=== PATIENT | female | born 1990 | race Caucasian/White ===

== ENCOUNTER 2017-11-21 14:33 | Emergency (ER) | payer OTHER ==
[~2017-11-21] VITALS: Ht 170.2 cm; Wt 56.7 kg
[~2017-11-21 14:33] MED LIST: ACETAMINOPHEN-1 EAC1 PO; ADVIL LIQUI-GE200 MG; BUSPIRONE HCL7.5 MG PO; CEPHALEXIN500 MG PO; CLINDAMYCIN HC150 MG PO; IRON55 MG PO; PRENATAL-FOLIC1 EACH PO; ROBAXIN-750750 MG PO; TRAMADOL HCL50 MG PO; TUMS200 MG PO
== END 2017-11-21 14:46 | disposition home or self-care (01) ==
LOC: ED 14:33
DX: R22.9 Localized swelling, mass and lump, unspecified (principal); R50.9 Fever, unspecified; F17.200 Nicotine dependence, unspecified, uncomplicated

== ENCOUNTER 2017-11-27 15:44 | Emergency (ER) | payer OTHER ==
[~2017-11-27] VITALS: Ht 170.2 cm; Wt 56.7 kg
[2017-11-27] MEDS ORDERED: BACTRIM DS TAB1 EACH PO (16:16)
[2017-11-27] MEDS ORDERED: KETOROLAC TROME10 MG PO (16:17)
== END 2017-11-27 17:40 | disposition home or self-care (01) ==
LOC: ED 15:44
DX: L02.31 Cutaneous abscess of buttock (principal); F17.200 Nicotine dependence, unspecified, uncomplicated; Z88.4 Allergy status to anesthetic agent
CPT/HCPCS: 96372; 99283; J0692

== ENCOUNTER 2018-03-19 15:29 | Emergency (ER) | payer OTHER ==
[~2018-03-19] VITALS: Ht 170.2 cm; Wt 56.7 kg
[~2018-03-19 15:29] MED LIST changes: +BACTRIM DS TAB1 EACH PO; +KETOROLAC TROME10 MG PO
--- OUTSIDE RECORDS SUMMARY | 2018-03-19 15:34 | XMS ---
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 Lesly has no Care Guidelines for this patient. Jack VISIT COUNT (12 MO.) 1 Zachery Harper TOTAL 5 NOTE: Visits indicate total known visits. ED/C VISIT TRACKING (12 MO.) 03/19/2018 15:30 [facility] [place] TYPE: Emergency COMPLAINT: - MENSTRUAL PROBLEM 11/27/2017 15:44 [facility] [place] TYPE: Emergency COMPLAINT: - POSS ABSCESS DIAGNOSES: - Nicotine dependence, unspecified, uncomplicated - Lower abdominal pain, unspecified - Allergy status to anesthetic agent status - Cutaneous abscess of buttock 11/21/2017 14:34 [facility] [place] TYPE: Emergency COMPLAINT: - POSS ABSCESS DIAGNOSES: - Localized swelling, mass and lump, unspecified - Fever, unspecified - Nicotine dependence, unspecified, uncomplicated 09/28/2017 17:[address] [facility] [address] [facility] [place] TYPE: Emergency COMPLAINT: - ABDOMINAL PAIN/FEVER DIAGNOSES: - Nicotine dependence, unspecified, uncomplicated - Urinary tract infection, site not specified - Allergy status to other drugs, medicaments and biological substances status - Unspecified abdominal pain 07/25/2017 23:08 [facility] [place] TYPE: Emergency DIAGNOSES: - Cellulitis - Cellulitis of left lower limb - Lt Ankle infection INPATIENT VISIT TRACKING (12 MO.) No inpatient visits to display in this time frame [email or web address]
== END 2018-03-19 16:39 | disposition home or self-care (01) ==
LOC: ED 15:29
DX: N91.2 Amenorrhea, unspecified (principal); Z88.5 Allergy status to narcotic agent
CPT/HCPCS: 84703; 99283

== ENCOUNTER 2018-05-10 03:42 | Emergency (ER) | payer OTHER ==
[~2018-05-10] VITALS: Ht 170.2 cm; Wt 59.0 kg
--- OUTSIDE RECORDS SUMMARY | 2018-05-10 03:46 | XMS ---
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 CRITERIA MET - Group Notification - [facility] - 2 Visits in 30 Days CARE PROVIDERS Tim Bates Internal Medicine: Pulmonary Disease 03/22/2018-Current PHONE: Unknown Lesly has no Care Guidelines for this patient. Care History Medical/Surgical 03/23/2018 [facility] - PATIENT REQUESTED A PCP WHEN SEE IN THE WALK IN CLINIC IN NOVEMBER- PATIENT DID NOT RESPOND TO ANY OF THE VOICEMAILS LEFT- AP SEVILLA WAS WILLING TO SET UP AND ESTABLISH WITH PATIENT IN DECEMBER 2017. - CHW CALLED PATIENT AND LEFT A VOICEMAIL TO HELP PATIENT ESTABLISH CARE WITH A PCP. - PATIENT WAS CONTACTED BY [facility] ON 11/21/17 TO ESTABLISH CARE WITH AP SEVILLA. - PATIENT NEVER RESPONDED TO VOICEMAILS LEFT. - PLEASE REFER PATIENT TO [facility] WHEN SEEN IN THE ED FOR NON EMERGENT MEDICAL NEEDS. E.D. VISIT COUNT (12 MO.) 1 Zachery Harper TOTAL 7 NOTE: Visits indicate total known visits. ED/UCC VISIT TRACKING (12 MO.) 05/10/2018 03:42 [facility] [place] TYPE: Emergency COMPLAINT: - R WRIST LACERATION 04/10/2018 08:37 [facility] [place] TYPE: Emergency COMPLAINT: - DIFFICULTY BREATHING DIAGNOSES: - Allergy status to narcotic agent status - Allergy, unspecified, initial encounter - Nicotine dependence, unspecified, uncomplicated 03/19/2018 15:30 [facility] [place] TYPE: Emergency COMPLAINT: - MENSTRUAL PROBLEM DIAGNOSES: - Allergy status to narcotic agent status - Amenorrhea, unspecified 11/27/2017 15:44 [facility] [place] TYPE: Emergency COMPLAINT: - POSS ABSCESS DIAGNOSES: - Nicotine dependence, unspecified, uncomplicated - Lower abdominal pain, unspecified - Allergy status to anesthetic agent status - Cutaneous abscess of buttock 11/21/2017 14:[address] [facility] [place] TYPE: Emergency COMPLAINT: - POSS ABSCESS DIAGNOSES: - Localized swelling, mass and lump, unspecified - Fever, unspecified - Nicotine dependence, unspecified, uncomplicated 09/28/2017 17:54 [facility] [place] [place] TYPE: Emergency COMPLAINT: - ABDOMINAL PAIN/FEVER DIAGNOSES: - Nicotine dependence, unspecified, uncomplicated - Urinary tract infection, site not specified - Allergy status to other drugs, medicaments and biological substances status - Unspecified abdominal pain 07/25/2017 23:08 [facility] Perezalmas [facility]of[facility] [place] TYPE: Emergency DIAGNOSES: - Cellulitis - Cellulitis of left lower limb - Lt Ankle infection INPATIENT VISIT TRACKING (12 MO.) No inpatient visits to display in this time frame [email or web address]
== END 2018-05-10 05:32 | disposition home or self-care (01) ==
LOC: ED 03:42
DX: T18.2XXA Foreign body in stomach, initial encounter (principal); S61.511A Laceration without foreign body of right wrist, initial encounter; S60.221A Contusion of right hand, initial encounter; W22.8XXA Striking against or struck by other objects, initial encounter; F17.200 Nicotine dependence, unspecified, uncomplicated; Z88.5 Allergy status to narcotic agent
CPT/HCPCS: 71045; 73130; 74018; 84703; 99283-25

== ENCOUNTER 2018-11-02 20:53 | Emergency (ER) | payer OTHER ==
[~2018-11-02] VITALS: Ht 170.2 cm; Wt 59.0 kg
--- OUTSIDE RECORDS SUMMARY | 2018-11-02 20:56 | XMS ---
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 CRITERIA MET - Group Notification - [facility] - Has Care Guidelines - PDMP CARE PROVIDERS Tim Bates Internal Medicine: Pulmonary Disease 03/22/2018-Current PHONE: Unknown Lesly has no Care Guidelines for this patient. Care History Medical/Surgical 03/23/2018 [facility] - PATIENT REQUESTED A PCP WHEN SEE IN THE WALK IN CLINIC IN NOVEMBER- PATIENT DID NOT RESPOND TO ANY OF THE VOICEMAILS LEFT- AP SEVILLA WAS WILLING TO SET UP AND ESTABLISH WITH PATIENT IN DECEMBER 2017. - CHW CALLED PATIENT AND LEFT A VOICEMAIL TO HELP PATIENT ESTABLISH CARE WITH A PCP. - PATIENT WAS CONTACTED BY [facility] ON 11/21/17 TO ESTABLISH CARE WITH AP SEVILLA. - PATIENT NEVER RESPONDED TO VOICEMAILS LEFT. - PLEASE REFER PATIENT TO [facility] WHEN SEEN IN THE ED FOR NON EMERGENT MEDICAL NEEDS. E.D. VISIT COUNT (12 MO.) [facility] [address] [facility] [address] [facility] Dom[facility] TOTAL 8 NOTE: Visits indicate total known visits. ED/UCC VISIT TRACKING (12 MO.) 11/02/2018 20:[address] [facility] [address] [facility] [place] TYPE: Emergency COMPLAINT: - NAUSEA,BLOOD PRESSURE ISSUE,WEAKNESS 07/25/2018 11:08 [facility] [place] [facility] TYPE: Emergency DIAGNOSES: 0. LABS 07/25/2018 09:13 [facility] [place] [facility] TYPE: Emergency DIAGNOSES: 0. RIGHT HAND SWELLING 05/10/2018 03:42 [facility] [place] [place] TYPE: Emergency COMPLAINT: - R WRIST LACERATION DIAGNOSES: - Allergy status to narcotic agent status - Contusion of right hand, initial encounter - Striking against or struck by other objects, initial encounter - Foreign body in stomach, initial encounter - Laceration without foreign body of right wrist, initial encounter - Nicotine dependence, unspecified, uncomplicated 04/10/2018 08:37 [facility] [place] [place] TYPE: Emergency COMPLAINT: - DIFFICULTY BREATHING DIAGNOSES: - Allergy status to narcotic agent status - Allergy, unspecified, initial encounter - Nicotine dependence, unspecified, uncomplicated 03/19/2018 15:30 [facility] [place] [place] TYPE: Emergency COMPLAINT: - MENSTRUAL PROBLEM DIAGNOSES: - Allergy status to narcotic agent status - Amenorrhea, unspecified 11/27/2017 15:[address] [facility] [address] [facility] [place] [place] TYPE: Emergency COMPLAINT: - POSS ABSCESS DIAGNOSES: - Nicotine dependence, unspecified, uncomplicated - Lower abdominal pain, unspecified - Allergy status to anesthetic agent status - Cutaneous abscess of buttock 11/21/2017 14:34 [facility] [place] [place] TYPE: Emergency COMPLAINT: - POSS ABSCESS DIAGNOSES: - Localized swelling, mass and lump, unspecified - Fever, unspecified - Nicotine dependence, unspecified, uncomplicated INPATIENT VISIT TRACKING (12 MO.) No inpatient visits to display in this time frame [email or web address]
== END 2018-11-02 22:37 | disposition home or self-care (01) ==
LOC: ED 20:53
DX: R03.1 Nonspecific low blood-pressure reading (principal); F17.200 Nicotine dependence, unspecified, uncomplicated; Z88.8 Allergy status to other drugs, medicaments and biological substances
CPT/HCPCS: 99283

== ENCOUNTER 2019-01-18 19:13 | Emergency (ER) | payer OTHER ==
[~2019-01-18] VITALS: Ht 170.2 cm; Wt 56.7 kg
[~2019-01-18 19:13] MED LIST changes: +BUPRENORPHINE HC8 MG SL
--- OUTSIDE RECORDS SUMMARY | 2019-01-18 19:16 | XMS ---
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 04/10/2018 08:37 - Other Details: PATIENT LEFT W/OUT DISCHARGE INSTRUCTIONS. CRITERIA MET - Group Notification - [facility] - Has Care Guidelines - PDMP CARE PROVIDERS Tim Bates Internal Medicine: Pulmonary Disease 03/22/2018-Current PHONE: Unknown Lesly has no Care Guidelines for this patient. Care History Medical/Surgical 11/03/2018 [facility] - PATIENT DECLINED [facility] CASE MANAGEMENT ASSISTANCE. - PLEASE CONTACT [facility] IF PATIENT IS WILLING TO ACCEPT HELP [phone]. 11/03/2018 [facility] - [facility] CASE MANAGEMENT REFERRAL MADE- [facility] NOT [facility] A [facility]. - PATIENT HAS HX OF DRUG USAGE, - PATIENT CURRENTLY WORKING WITH DR YOLANDA RODRIGUES. Care Recommendation: - USE EXTREME CAUTION IN GIVING NARCOTICS TO THIS PATIENT. - Avoid Discharge Narcotic prescriptions if at all possible. Physician discretion. 03/23/2018 [facility] - PATIENT REQUESTED A PCP WHEN SEE IN THE WALK IN CLINIC IN NOVEMBER- PATIENT DID NOT RESPOND TO ANY OF THE VOICEMAILS LEFT- AP SEVILLA WAS WILLING TO SET UP AND ESTABLISH WITH PATIENT IN DECEMBER 2017. - CHW CALLED PATIENT AND LEFT A VOICEMAIL TO HELP PATIENT ESTABLISH CARE WITH A PCP. - PATIENT WAS CONTACTED BY [facility] ON 11/21/17 TO ESTABLISH CARE WITH AP SEVILLA. - PATIENT NEVER RESPONDED TO VOICEMAILS LEFT. - PLEASE REFER PATIENT TO [facility] WHEN SEEN IN THE ED FOR NON EMERGENT MEDICAL NEEDS. Jack VISIT COUNT (12 MO.) [address] [place] [address] B[facility] [place] TOTAL 8 NOTE: Visits indicate total known visits. 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 [place] [facility] TYPE: Emergency DIAGNOSES: 0. LABS 07/25/2018 09:13 [facility] TYPE: Emergency DIAGNOSES: 0. RIGHT HAND SWELLING [...] to narcotic agent status - Amenorrhea, unspecified INPATIENT VISIT TRACKING (12 MO.) 11/08/2018 20:10 [facility] [place] [place] TYPE: Pulmonology DIAGNOSES: - Encephalopathy - Other psychoactive substance abuse, uncomplicated - Headache - Other stimulant abuse, uncomplicated - Encephalopathy, unspecified [email or web address]
--- NOTE | 2019-01-18 23:58 | EKG ---
[facility] [address] [place], [place] [address] Signed Sinus tachycardia Cannot rule out Anterior infarct , age undetermined Non-specific change in ST segment in V4-V5 Abnormal ECG No previous ECGs available Confirmed by SANA GIBBONS MD ([id number]) on 01/18/2019 11:58:28 PM Electronically Signed By: SANA GIBBONS MD 01/18/19 2358 PATIENT NAME: LUBA SEBASTIAN ROOSEVELT Electrocardiogram DATE OF : 89 PHYSICIAN: SANA GIBBONS MD REPORT #: [id number] REPORT IS CONFIDENTIAL AND NOT TO BE RELEASED WITHOUT AUTHORIZATION
== END 2019-01-19 04:35 | disposition home or self-care (01) ==
LOC: ED 19:13
DX: R51 Headache (principal); G89.29 Other chronic pain; F15.10 Other stimulant abuse, uncomplicated; F11.129 Opioid abuse with intoxication, unspecified; F17.200 Nicotine dependence, unspecified, uncomplicated; Z88.6 Allergy status to analgesic agent; Z79.899 Other long term (current) drug therapy
CPT/HCPCS: 36415; 36556; 62270; 70450; 71045; 80053; 81001; 82945; 83605; 84157; 84484; 84703; 85025; 85032; 85379; 89051; 93005; 93010; 93970; 99291; 99292; G0480; J1200; J2765; J7030

== ENCOUNTER 2019-01-31 02:21 | Emergency (ER) | payer OTHER ==
[~2019-01-31] VITALS: Ht 170.2 cm; Wt 56.7 kg
--- OUTSIDE RECORDS SUMMARY | 2019-01-31 02:24 | XMS ---
PreManage Notification: LUBA SEBASTIAN Security [place] Events 1 event(s) in the past 18 months Most recent security events: Elopement at [facility] 04/10/2018 08:37 - Other Details: PATIENT LEFT W/OUT DISCHARGE INSTRUCTIONS. CRITERIA MET - Group Notification - 6 ED Visits in 6 Months - [facility] - Has Care Guidelines - PDMP - [facility] - 2 Visits in 30 Days CARE PROVIDERS Tim Bates Internal Medicine: Pulmonary Disease 03/22/2018-Current PHONE: Unknown Lesly has no Care Guidelines for this patient. Care History Medical/Surgical 01/20/2019 [facility] - [facility] REFERRAL MADE- DUE TO PATIENT DECLINING SERVICES/HELP FROM [facility]. 11/03/2018 [facility] - PATIENT DECLINED [facility] CASE MANAGEMENT ASSISTANCE. - PLEASE CONTACT [facility] IF PATIENT IS WILLING TO ACCEPT HELP [phone]. 11/03/2018 [facility] - [facility] CASE MANAGEMENT REFERRAL MADE- [facility] AND NOT HAVING A PCP. - PATIENT HAS HX OF DRUG USAGE, - PATIENT CURRENTLY WORKING WITH DR YOLANDA RODRIGUES. Care Recommendation: - USE EXTREME CAUTION IN GIVING NARCOTICS TO THIS PATIENT. - Avoid Discharge Narcotic prescriptions if at all possible. Physician discretion. E.D. VISIT COUNT (12 MO.) 2 [address] [facility] [facility] 7 BRIAN Harper TOTAL 11 NOTE: Visits indicate total known visits. ED/UCC VISIT TRACKING (12 MO.) 01/31/2019 02:21 [facility] [place] TYPE: Emergency COMPLAINT: - MULTIPLE COMPLAINTS 01/21/2019 23:43 [facility] [place] TYPE: Emergency DIAGNOSES: - Acute and subacute infective endocarditis - Other specified abnormal findings of blood chemistry - Elevated C-reactive protein (CRP) - Other psychoactive substance use, unspecified, uncomplicated - Post Diagnosis Test Re-evaluation - Systemic inflammatory response syndrome (SIRS) of non-infectious origin without acute organ dysfunction - Fever, unspecified 01/21/2019 04:48 [facility] [place] TYPE: Emergency DIAGNOSES: - Headache; Fever - Headache 01/18/2019 19:14 [facility] TYPE: Emergency COMPLAINT: - CHILLS DIAGNOSES: - Allergy status to analgesic agent status - Headache - Other chronic pain - Nicotine dependence, unspecified, uncomplicated - Opioid abuse with intoxication, unspecified - 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 [place] [facility] TYPE: Emergency DIAGNOSES: 0. LABS 07/25/2018 09:13 [facility] [place] [facility] TYPE: Emergency DIAGNOSES: 0. RIGHT [...] Amenorrhea, unspecified INPATIENT VISIT TRACKING (12 MO.) 01/21/2019 23:43 [facility] María [place]ER[place] TYPE: Medical Surgical DIAGNOSES: - Acute and subacute infective endocarditis - Elevated C-reactive protein (CRP) - Opioid dependence, uncomplicated - Systemic inflammatory response syndrome (SIRS) of non-infectious origin without acute organ dysfunction - Fever, unspecified - Other psychoactive substance use, unspecified, uncomplicated - Other specified abnormal findings of blood chemistry - Other stimulant dependence, uncomplicated - Other visual disturbances [facility]08[facility]2018 [facility] TYPE: Pulmonology DIAGNOSES: - Encephalopathy - Other psychoactive substance abuse, uncomplicated - Headache - Other stimulant abuse, uncomplicated - Encephalopathy, unspecified [email or web address]
[2019-02-01] MEDS ORDERED: METHADONE HCL5 MG PO (10:09)
[2019-02-01] MEDS ORDERED: CUBICIN RF500 MG IV (10:10)
[2019-02-01] MEDS ORDERED: TRAZODONE HCL50 MG PO (10:15)
[2019-02-01] MEDS ORDERED: ATIVAN1 MG PO (10:16)
== END 2019-01-31 04:55 | disposition home or self-care (01) ==
LOC: ED 02:21
DX: F15.129 Other stimulant abuse with intoxication, unspecified (principal); I07.9 Rheumatic tricuspid valve disease, unspecified; F15.10 Other stimulant abuse, uncomplicated; F11.10 Opioid abuse, uncomplicated; F17.200 Nicotine dependence, unspecified, uncomplicated; Z88.6 Allergy status to analgesic agent; Z79.899 Other long term (current) drug therapy
CPT/HCPCS: 80053; 81001; 85025; 99284; J0878

== ENCOUNTER 2019-01-31 14:07 | Inpatient (IN) | payer OTHER ==
[~2019-01-31] VITALS: Ht 170.2 cm; Wt 56.7 kg
--- OUTSIDE RECORDS SUMMARY | ~2019-01-31 | XMS | Encounter Summary ---
Demographics + + + | Address | [address] | | | [place] [address] | + + + | Home Phone | | + + + | Preferred Language | Unknown | + + + | Marital Status | Single | + + + | Hoahaoism Affiliation | Unknown | + + + | Race | Unknown | + + + | Ethnic Group | Unknown | + + + Author + + + | Author | [facility] | | | and [place] | + + + | Organization | [facility] | | | and [place] | + + + | Address | Unknown | + + + | Phone | Unavailable | + + + Support + + + + + | Name | Relationship | Address | Phone | + + + + + | Rhonda Islas | ECON | [address] | | | | | [place] | | | | | [address] | | + + + + + Care Team Providers + +------+ + | Care Refrigeration Specialist Name | Role | Phone | + +------+ + | No, Physician | PCP | Unavailable | + +------+ + Encounter Details +--------+ + + + + | Date | Type | Department | Care Team | Description | +--------+ + + + + | 11/08/ | Imaging | [facility] | Provider, | | | 2019 | Exam | [facility] | MD Danielle [address] | | | | | IMAGING | Jose COOK | | | | | [phone] | [place] [address] | | +--------+ + + + + Social History + +-------+ +--------+------+ | Tobacco Use | Types | Packs/Day | Years | Date | | | | | Used | | + +-------+ +--------+------+ | Never Assessed | | | | | + +-------+ +--------+------+ + + + | Sex Assigned at | Date Recorded | | | | + + + | Not on file | | + + + + + + + | Job Start Date | Occupation | Industry | + + + + | Not on file | Not on file | Not on file | + + + + + + + + | Travel History | Travel Start | Travel End | + + + + + + | No recent travel history available. | + + documented as of this encounter Plan of Treatment +--------+---------+ + + + | Date | Type | Specialty | Care Team | Description | +--------+---------+ + + + | 03/30/ | Office | Neurology | Jd Henderson MD | | | 2019 | Visit | | [address] | | | | | | [place] | | | | | | [address] | | | | | | | | +--------+---------+ + + + documented as of this encounter Procedures + +--------+ + + + | Procedure Name | Priori | Date/Time | Associated Diagnosis | Comments | | | ty | | | | + +--------+ + + + | MRI VENOGRAM HEAD WO | Routin | 11/08/2018 | | Results for this | | CONTRAST | e | 22:00 PDT | | procedure are in the | | | | | | results section. | + +--------+ + + + documented in this encounter Visit Diagnoses Not on filedocumented in this encounter"
--- OUTSIDE RECORDS SUMMARY | ~2019-01-31 | XMS | Encounter Summary ---
Demographics + + + | Address | [address] | | | [place] [address] | + + + | Home Phone | | + + + | Preferred Language | Unknown | + + + | Marital Status | Single | + + + | Gnosticism Affiliation | Unknown | + + + | Race | Unknown | + + + | Ethnic Group | Unknown | + + + Author + + + | Author | [facility] | | | and [place] | + + + | Organization | [facility] | | | and [place] | + + + | Address | Unknown | + + + | Phone | Unavailable | + + + Support + + + + + | Name | Relationship | Address | Phone | + + + + + | Rhonda Islas | ECON | [address] | | | | | [place] | | | | | [address] | | + + + + + Care Team Providers + +------+ + | Care Production Team Member Name | Role | Phone | + +------+ + | No, Physician | PCP | Unavailable | + +------+ + Reason for Visit + + + | Reason | Comments | + + + | Medication Refill | | + + + Encounter Details +--------+ + + + + | Date | Type | Department | Care Team | Description | +--------+ + + + + | 01/25/ | Telephone | [facility] | Jd Henderson MD | Medication Refill | | 2019 | | HOSPITAL NEUROLOGY | [address] | | | | | CLINIC [address] | [place] | | | | | DR [place], | [address] | | | | | [place] [address] | | | | | | [phone] | | | +--------+ + + + + Social History + +-------+ +--------+------+ | Tobacco Use | Types | Packs/Day | Years | Date | | | | | Used | | + +-------+ +--------+------+ | Former Smoker | | 0.5 | | | + +-------+ +--------+------+ + +---+---+---+ | Smokeless Tobacco: | | | | | Never Used | | | | + +---+---+---+ + + +---------+ + | Alcohol Use | Drinks/We | oz/Week | Comments | | | ek | | | + + +---------+ + | Yes | | | | + + +---------+ + + + + | Sex Assigned at [...] | | | | | | [place] | | | | | | [phone] | | | | | | | | +--------+---------+ + + + documented as of this encounter Visit Diagnoses Not on filedocumented in this encounter"
--- OUTSIDE RECORDS SUMMARY | ~2019-01-31 | XMS | Encounter Summary ---
Demographics + + + | Address | [address] | | | [employer] [place] [address] | + + + | Home Phone | | + + + | Preferred Language | Unknown | + + + | Marital Status | Single | + + + | Pentecostal Affiliation | NON | + + + | Race | White | + + + | Ethnic Group | Not or | + + + Author + + + | Author | [facility] | + + + | Organization | [facility] | + + + | Address | Unknown | + + + | Phone | Unavailable | + + + Care Team Providers + +------+ + | Care Clinical Laboratory Aide Name | Role | Phone | + +------+ + PCP | Unavailable | + +------+ + Encounter Details +--------+--------+ + + + | Date | Type | Department | Care Team | Description | +--------+--------+ + + + | 11/08/ | Intake | Transfer Center | | N/A | | 2019 | | [address] | | | | | | [place], | | | | | | [place] [address] | | | +--------+--------+ + + + Social History + +-------+ [...] as of this encounter Plan of Treatment Not on filedocumented as of this encounter Visit Diagnoses Not on filedocumented in this encounter"
--- OUTSIDE RECORDS SUMMARY | ~2019-01-31 | XMS | Encounter Summary ---
Demographics + + + | Address | [address] | | | [place] [address] | + + + | Home Phone | | + + + | Preferred Language | Unknown | + + + | Marital Status | Single | + + + | Rastafarian Affiliation | Unknown | + + + | Race | Unknown | + + + | Ethnic Group | Unknown | + + + Author + + + | Author | [facility] | | | and [place] | + + + | Organization | [facility] | | | and [place] | + + + | Address | Unknown | + + + | Phone | Unavailable | + + + Support + + + + + | Name | Relationship | Address | Phone | + + + + + | Rhonda Islas | ECON | [address] | | | | | [place] | | | | | [address] | | + + + + + Care Team Providers + +------+ + | Care Regional Construction Manager Name | Role | Phone | + [...] | [facility] | MD Danielle [address] | | | | | IMAGING | [address] | | | | | [phone] | [place] [address] | | +--------+ + + + + [...] [place] | | | | | | [phone] | | | | | | | | +--------+---------+ + + + documented as of this encounter Procedures + +--------+ + + + | Procedure Name | Priori | Date/Time | Associated Diagnosis | Comments | | | ty | | | | + +--------+ + + + | MRI BRAIN W WO | Routin | 11/08/2018 | | Results for this | | CONTRAST | e | 22:15 PDT | | procedure are in the | | | | | | results section. | + +--------+ + + + documented in this encounter Visit Diagnoses Not on filedocumented in this encounter"
--- OUTSIDE RECORDS SUMMARY | ~2019-01-31 | XMS | Encounter Summary ---
Demographics + + + | Address | [address] | | | [place] [address] | + + + | Home Phone | | + + + | Preferred Language | Unknown | + + + | Marital Status | Single | + + + | Yarsani Affiliation | Unknown | + + + | Race | Unknown | + + + | Ethnic Group | Unknown | + + + Author + + + | Author | [facility] | | | and Romarioana | + + + | Organization | [facility] | | | [...] [address] | | | | | [place] | | | | | [address] | | + + + + + Care Team Providers + +------+ + | Care Cyber Workforce Developer And Manager Name | Role | Phone | + +------+ + | Dada Silver PCP | | + +------+ + Reason for Visit + + + | Reason | Comments | + + + | Post Diagnosis Test | | | Re-evaluation | | + + + Auth/Cert +--------+--------+ + + + + | Status | Reason | Specialty | Diagnoses / | Referred By | Referred To | | | | | Procedures | Contact | Contact | +--------+--------+ + + + + | | | | Diagnoses | | | | | | | Acute | | | | | | | bacterial | | | | | | | endocarditis | | | | | | | Elevated | | | | | | | C-reactive | | | | | | | protein | | | | | | | Active | | | | | | | intravenous | | | | | | | drug use | | | | | | | SIRS | | | | | | | (systemic | | | | | | | inflammatory | | | | | | | response | | | | | | | syndrome) | | | | | | | (HCC) Fever | | | | | | | in adult | | | | | | | Elevated | | | | | | | procalcitoni | | | | | | | n | | | | | | | | | | +--------+--------+ + + + + Encounter Details +--------+ + + + + | Date | Type | Department | Care Team | Description | +--------+ + + + + | 01/21/ | Hospital | [facility] | SimonVladislav mancuso, | Active intravenous | | 2019 - | Encounter | [facility] | [address] | drug use (Primary | | | | [address] [place] | [place] | Dx); Fever in adult; | | 01/29/ | | [place] [address] | [id number] | Acute bacterial | | 2018 | | [phone] | | endocarditis; | | | | | Adam White MD | Elevated | | | | | [address] | procalcitonin; | | | | | [place] | Elevated C-reactive | | | | | [address] | protein; SIRS | | | | | | (systemic | | | | | Yoana Rojo MD | inflammatory | | | | | [address] | response syndrome) | | | | | [place] | (HCC); Heroin | | | | | [address] | dependence (HCC); | | | | | | Blurred vision; | | | | | | Methamphetamine | | | | | | dependence (HCC) | +--------+ + + + + Social [...] + + documented as of this encounter Last Filed Vital Signs + + + + | Vital Sign | Reading | Time Taken | + + + + | Blood Pressure | 95/55 | 01/29/2019749 PDT | + + + + | Pulse | 85 | 01/29/2019749 PDT | + + + + | Temperature | 36.4 C (97.6 F) | 01/29/2019749 PDT | + + + + | Respiratory Rate | 20 | 01/29/2019749 PDT | + + + + | Oxygen Saturation | 97% | 01/29/2019749 PDT | + + + + | Inhaled Oxygen | - | - | | Concentration | | | + + + + | Weight | 56.7 kg (125 lb) | 01/22/2019 0546 PDT | + + + + | Height | 170.2 cm (5' 7") | 01/22/2019 0546 PDT | + + + + | Body Mass Index | 19.58 | 01/22/2019 0546 PDT | + + + + documented in this encounter Discharge Summaries Maurizio Drummond MD - 01/29/2019 1430 PDT DISCHARGE SUMMARY Patient Name: Sandhya Gil : 1990 Date of Admission: 01/21/2019 Date of Discharge: 01/29/19 Admitting Physician: Adam White MD Discharging Physician: Maurizio Drummond MD Primary Care Provider: Dada Silver Discharge Diagnoses: Active Problems: Acute bacterial endocarditis SIRS (systemic inflammatory response syndrome) Heroin dependence Methamphetamine dependence Blurred vision Resolved Problems: * No resolved hospital problems. * Patient Active Problem List Diagnosis SIRS (systemic inflammatory response syndrome) Heroin dependence Methamphetamine dependence Acute bacterial endocarditis Blurred vision Consultants: Discussed with antimicrobial stewardship team Procedures: 01/21 EKG: Normal sinus rhythm Normal ECG 01/22 Echo: 1. Normal left ventricular size, wall thickness and motion. Preserved left ventricular sy stolic function. LVEF is 70%. 2. Grade 1 left ventricular diastolic dysfunction. 3. Mildly thickened mitral valve with a trace mitral valve regurgitation. 4. A 0.7 x 0.7 x 1.0 cm oscillating, mobile mass attached to the anterior tricuspid valve leaflet. Findings suggests vegetation. No significant tricuspid regurgitation noted. 5. Normal right-sided pressure. 6. Normal IVC with normal respiratory collapse. 01/22 CXR: FINDINGS: Portable frontal chest radiograph Lungs: No focal airspace disease, pleural effusion, or pneumothorax. Heart/mediastinum: Cardiac silhouette is of normal size. Central pulmonary vasculature has a normal appearance. Bones: No acute osseous abnormality appreciated. IMPRESSION - No acute disease. 01/22 CXR: FINDINGS: Portable frontal chest radiograph. Right internal jugular central venous catheter with the tip at the mid superior vena cava. Lungs: No focal airspace disease, pleural effusion, or pneumothorax. Heart/mediastinum: Cardiac silhouette is of normal size. Central pulmonary vasculature has a normal appearance. IMPRESSION - Right central venous catheter tip at the mid superior vena cava. No pneumothorax. 01/[address]: FINDINGS: The cerebral parenchyma, ventricles, brainstem and cerebellum appear normal. There is no mass effect, abnormal parenchymal enhancement, conclusive evidence of intracranial hemorrhage or suspicious extra-axial abnormality. 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 Major intracranial vessels and dural sinuses appear patent and unremarkable, allowing for small rounded radiolucent filling defects in the transverse dural venous sinuses, which are consistent with arachnoid granulations. The orbital contents are symmetric and unremarkable. The bones and soft tissues, including the imaged paranasal sinuses, middle ear cavities and mastoid air cells, are unremarkable. IMPRESSION - 1. 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 2. NO OTHER VISIBLE INTRACRANIAL OR EXTRACRANIAL ABNORMALITY. Brain MRI performed November 08, 2018 at [facility] is now available for comparison. The pineal cyst is stable in size. No new abnormality is evident. No results found. Recent Results (from the past 48 hour(s)) Basic Metabolic Panel Result Value Ref Range Na 140 136 - 145 mmol/L K 3.7 3.4 - 5.1 mmol/L Cl 104 98 - 107 mmol/L CO2 31 20 - 31 mmol/L Anion Gap 5 3 - 16 mmol/L Glucose 120 (H) 60 - 106 mg/dL BUN 9 9 - 23 mg/dL Creatinine 0.50 (L) 0.55 - 1.02 mg/dL eGFR if not >60 >=60 mL/min/1.73m2 Calcium 9.4 8.7 - 10.4 mg/dL BUN/Creatinine Ratio 18.0 Vancomycin, Trough Result Value Ref Range Date of Last Dose Time of Last Dose Vancomycin Trough 13.8 (H) 5.0 - 10.0 ug/mL CK Total Result Value Ref Range CK TOTAL 47 34 - 145 U/L Reason for Admission: Please refer to the H&P for full details. In short, this is a 28 y.o. female with a histor y of IV heroin use who presented with fevers, chills, headache. Problem-Oriented Hospital Course: Culture negativetricuspid valveendocarditis -History of recent IV heroin use - Echo showedtricuspid vegetation - Arrived withprocalcitoninof 8.68and CRPof 36, elevated inflammatory/infectious ma rkers,fevers at home,although blood cultures neg, right IJ central line placed - 1 major and 2 minor criteria per modified [place] - Started on vancomycin on admission, with improvement in symptoms and inflammatory markers , procalcitonin fell to 0.82 by 01/24 - Discussed with AMS, plan for 4 weeks of IV vancomycin or daptomycin (01/22-02/19), initial ly planned on discharging to SNF, but she decided to go home instead - Peripheral IV placed, central line removed, switched to IV daptomycin, which she tolerate d - She refused SNF - We will plan to have her follow up with [facility] for daptomycin ever y afternoon, with daily placement then removal of peripheral IV, did not feel PICC was appro priate given her history - To follow up with her primary care Dr. Silver in [place] IV heroin use/methamphetamine use -Initially on high-dose methadonebut was very drowsy, switched to lower dose 5 mg metha done bid and she states symptoms controlled, denies withdrawal at discharge - She would like to establish with methadone or Suboxone clinic, advised her that will need to be managed by outpatient provider - Lorazepam PRN agitation/withdrawal, prescribed short course of 6 1-mg tabs of lorazepam q 8h PRN - Strongly advised heroin cessation, advised her that she could lose tolerance after a week in the hospital, and that there is a very high risk of overdose if she uses heroin again, a nd she stated she understood Tobacco use d/o Nicotine patch/lozenges ordered in the hospital. - She is precontemplative about quitting smoking currently, but encouraged cessation Blurred vision: - C/o blurred vision01/25, but unable to get MRI because of anxiety despite lorazepam - Much improved symptoms 01/26, checked head CT which showed (known)pineal cyst, noacute intracranial process, felt to be stable on imaging - No complaints at discharge Code Status: Full Code Disposition: Home Discharge Condition: Fair, alert, appropriate, thin Lungs clear Heart RRR, no m/r/g Abd soft, NT Ext WWP Follow-up Information Schedule an appointment as soon as possible for a visit with Dada Silver. Specialty: Family Medicine Why: Make a follow up appointment RIKY on Wednesday 01/31. Contact information: [address] [place] [address] [facility]. Go on 01/30/2019. Specialty: Acute Care Hospital Why: Your appointment is at 2:00PM. Please speak with the RN about making future infusion appointments. Contact information: [address] [facility] [id number] Discharge Medications New Medications Details DAPTOmycin (CUBICIN) IVPB 6 mg/kg = 400 mg Inject 400 mg into the vein every 24 hours. Indications: Bacterial Endocarditis Start: 01/30/2019 LORazepam 1 mg tablet Take 1 tablet by mouth every 8 hours as needed for Anxiety or Withdrawal Symptoms. aka: ATIVAN Unchanged Medications Details buprenorphine [address] 4 mg under the tongue Daily. aka: SUBUTEX Studies With Pending Results: None Greater than 30 minutes were spent on discharge and coordination of post-hospital care. Electronically signed by: Maurizio Drummond MD, 01/29/2019 14:35 [facility] documented in this enc ounter Discharge Instructions Instructions Maurizio Drummond MD - 01/29/2019Please follow up with your primary care in t he next few days to address your chronic health issues. Follow up daily with infusion clini c in [place] in order to get the daily daptomycin you need to treat the heart infection. A short course of lorazepam for withdrawal symptoms has been prescribed. documented in this encounter Medications at Time of Discharge + + + +---------+ + + | Medication | Sig | Dispensed | Refills | Start | End Date | | | | | | Date | | + + + +---------+ + + | buprenorphine | Place 4 mg under the | | 0 | | | | (SUBUTEX) 8 mg SUBL | tongue Daily. | | | | | + + + +---------+ + + | DAPTOmycin | Inject 400 mg into | 20 each | 0 | // | | | (CUBICIN) IVPB 6 | the vein every 24 | | | 19 | | | mg/kg = 400 | hours. Indications: | | | | | | mgIndications: | Bacterial | | | | | | Bacterial | Endocarditis | | | | | | Endocarditis | | | | | | + + + +---------+ + + | LORazepam (ATIVAN) | Take 1 tablet by | 6 | 0 | 01/30/20 | | | 1 mg tablet | mouth every 8 hours | tablet | | 19 | | | | as needed for | | | | | | | Anxiety or | | | | | | | Withdrawal Symptoms. | | | | | + + + +---------+ + + documented as of this encounter Progress Notes Maurizio Drummond MD - 01/28/2019 1534 PDT [facility] Sandhya Gil is a 28 y.o. female ASSESSMENT and PLAN: Active Hospital Problems Diagnosis Acute bacterial endocarditis Blurred vision SIRS (systemic inflammatory response syndrome) Heroin dependence Methamphetamine dependence Resolved Hospital Problems No resolved problems to display. Culture negativetricuspid valveendocarditis - History of IV heroin use - Echo showedtricuspid vegetation - Arrived withprocalcitoninof 8.68and CRPof 36, elevated inflammatory/infectious ma rkers, fevers at home, although blood cultures neg - 1 major and 2 minor criteria per modified [place] - Started on vancomycin on admission, with improvement in symptoms and inflammatory markers - Discussed with AMS, plan for 4 weeks of IV vancomycin or daptomycin (01/22-02/19), if able to go to SNF, will order PICC line - Peripheral IV placed today, central line removed, switched to IV daptomycin, but can use either vanc or daptomycin to finish course IV heroin use/methamphetamine use -She declined methadone01/26, but was feeling some withdrawal 01/27, switched to lower do se 5 mg methadone bid and she states symptoms controlled - Lorazepam PRN agitation/withdrawal Tobacco use d/o Nicotine patch/lozenges ordered. Blurred vision: - C/o blurred vision01/25, but unable to get MRI because of anxiety despite lorazepam - Much improved symptoms 01/26, checked head CT which showed (known)pineal cyst, noacute intracranial process Disposition : Working with CM Prophylaxis : heparin SUBJECTIVE: Feels anxious at times. No acute pain. No chest pain or shortness of breath. No nausea /vomiting. VITALS: Temp: 36.3 C (97.3 F), Pulse: 69, Resp: 20, BP: 104/69, SpO2 97 % on room air Temp Min : 36.2 C (97.2 F) Max: 36.7 C (98.1 F) Weight: 56.7 kg (125 lb) Intake/Output Summary (Last 24 hours) at 01/28/2019 1534 Last data filed at 01/28/2019 0726 Gross per 24 hour Intake 300 ml Output 900 ml Net -600 ml PHYSICAL EXAM: General: Alert, anxious at times, no acute distress Cardiovascular: RRR Respiratory: CTA bilaterally Abdomen: Soft, NT Extremities: WWP, no stigmata of endocarditis Reeves catheter present: No DIAGNOSTIC STUDIES: Available data and images were reviewed personally. Significant results and findings are a ddressed here or in the Assessment and Plan. Recent Results (from the past 24 hour(s)) Basic Metabolic Panel Result Value Ref Range Na 140 136 - 145 mmol/L K 3.7 3.4 - 5.1 mmol/L Cl 104 98 - 107 mmol/L CO2 31 20 - 31 mmol/L Anion Gap 5 3 - 16 mmol/L Glucose 120 (H) 60 - 106 mg/dL BUN 9 9 - 23 mg/dL Creatinine 0.50 (L) 0.55 - 1.02 mg/dL eGFR if not >60 >=60 mL/min/1.73m2 Calcium 9.4 8.7 - 10.4 mg/dL BUN/Creatinine Ratio 18.0 Vancomycin, Trough Result Value Ref Range Date of Last Dose Time of Last Dose Vancomycin Trough 13.8 (H) 5.0 - 10.0 ug/mL CK Total Result Value Ref Range CK TOTAL 47 34 - 145 U/L No results found. Current Facility-Administered Medications: acetaminophen 650 mg Oral Q4H PRN DAPTOmycin 6 mg/kg Intravenous Q24H heparin 5,000 Units Subcutaneous 2 times per day LORazepam 1 mg Oral Q4H PRN methadone 5 mg Oral 2 times per day nicotine 1 patch Transdermal Daily PRN nicotine polacrilex 2 mg Oral PRN Total time of approximately 25 minutes was spent with the patient and/or patient's family, and/or on the patient's floor/unit, of which more than 50% was spent counseling and/or coord ination the patient's care as outlined above. Maurizio Drummond MD 01/28/2019 15:34 [facility] hemo Mcintosh , Powerhouse Mechanic Supervisor - 01/28/2019 0823 PDT VANCOMYCIN PER PHARMACY PROTOCOL: AMS/Drug Name - Vanco Patient: Sandhya Gil [id number] Admit: 01/21/2019 23:45 RELEVANT ALLERGIES: NKA 28 yrs old female patient admitted on 01/21/2019 for bactermia Patient is receiving vancom ycin starting on 01/22/19 for bacteremia. Patient has no past medical history on file. . 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 HPI: Per H&P - This is a 28 y.o. female with a past medical history significant for heroin dependence, methamphetamine dependence who presents with fevers and headaches. The symptoms have been going on for 1 week. Patient has had multiple ER visits. Patient states that chris hill would have aches over her entire head. She denies any rashes on her skin. Patient states that she injects heroin. She does not share needles but she does not use fresh needles wit h each injection. She usually injects in her lower extremities. Patient reports a history of cellulitis in the lower extrema many years ago that required antibiotics. She currently is not sexually active. Patient has had multiple ER visits with lumbar punctures not reveali ng her source for headache or infection. Most recent blood test shows elevated procalcitoni n and CRP. Antimicrobials - Current Antibiotic Dates of Therapy Vanco 01/22- Antimicrobials - Discontinued Antibiotic Dates of Therapy Historical Vancomycin dosing (previous & current encounter): none Micro/Cultures/Diagnostics: Microbiology Results (Last 14 Days by Collected Date with Culture/Sensitivity) Procedure Component Value Units Date/Time Culture, Blood [[id number]] Collected: 01/22/19 0215 Order Status: Completed Lab Status: Final result Updated: 01/27/19220 Specimen: Blood from Line Culture No growth after 5 days incubation. Culture, Blood [[id number]] Collected: 01/22/19214 Order Status: Completed Lab Status: Final result Updated: 01/27/19220 Specimen: Peripheral Blood Culture No growth after 5 days incubation. Culture, Blood [[id number]] Order Status: Canceled Lab Status: No result Specimen: Blood Culture, Urine [[id number]] Collected: 01/22/1918 Order Status: Completed Lab Status: Final result Updated: 01/24/191122 Specimen: Urine, Clean Catch Culture >100,000 CFU/ml Mixed Gram Positive Ольга Comment: Suggests contamination with urogenital or skin ольга. No further work-up to follow. Relevant cultures from previous admits: Date Source Organisms Sensitivities none Admission Wt: Weight: 56.7 kg (125 lb) Current Wt: Weight: 56.7 kg (125 lb) Min/Max Temp past 24 hours:Temp Av.4 C (97.6 F) Min: 36.2 C (97.2 F) Max: 3 6.7 C (98.1 F) Estimated Creatinine Clearance: 151 mL/min (A) (based on SCr of 0.5 mg/dL (L)). Intake/Output Summary (Last 24 hours) at 01/28/2019 1003 Last data filed at 01/28/2019 0726 Gross per 24 hour Intake 522 ml Output 900 ml Net -378 ml Temp: [36.2 C (97.2 F)-36.7 C (98.1 F)] 36.3 C (97.3 F) Pulse: [69-80] 69 Resp: [16-20] 20 BP: (96-118)/(55-73) 104/69 Recent Labs Lab 01/28/19 0824 01/28/19 0428 01/27/19 0810 01/27/19 0409 01/26/19 0818 01/26/19 0615 01/25/19 0248 01/24/19 0230 01/23/19 0451 01/22/19214 WBC -- -- -- 6.5 -- 6.6 5.9 6.3 6.4 -- 8.6 CREA -- 0.50* -- 0.56 -- 0.53* 0.56 0.46* 0.51* -- 0.69 LACTATE -- -- -- -- -- -- -- -- -- -- 0.9 VANCOTROUGH 13.8* -- 15.7* -- 16.6* -- 21.3* 17.0* -- < > -- PROCALCITONI -- -- -- -- -- -- -- 0.82* -- -- 4.67* CRP -- -- -- -- -- -- -- -- -- -- 18.90* ESR -- -- -- -- -- -- -- -- -- -- 8 < > = values in this interval not displayed. Imagin/14: CXR - no acute disease 01/22: CXR - no pneumothorax 01/22: ECHO - 0.7 x 0.7 x 1.0 cm oscillating, mobile mass attached to the anterior tricuspid valve leaflet. Findings suggests vegetation. 01/26: CT head - 11 MM Low - attentuation pineal cyst. No other visible intracranial or extr acranial abnormality. Date 01/22 01/23 01/24 01/25 01/26 01/27 01/28 Time of Vancomycin draw -- 0146 0230 0248 0800 0800 0800 Vancomycin result -- 14.4 17 21.3 16.6 15.7 13.8 LEVEL or TROUGH -- TROUGH TROUGH TROUGH TROUGH TROUGH TROUGH Serum Creatinine 0.69 0.51 0.46 0.56 0.53 0.56 0.50 CrCl (mL/min) >100 >100 >100 >100 >100 > 100 > 100 Vanco load/bolus 1250 mg no no no no no no Vanco dose - current -- 1000 mg q8hr 1250 mg q8hr 1250 mg q8hr 1000 mg q8hr 1000 mg q8hr 10 00 mg q8hr Vanco dose - new 1000 mg q8hr 1250 mg q8hr No change Hold 6 hours, restart @ 1000 mg q8hr N o change No change 1150 mg q8hr Assessment: Vancomycin Day # 7 Other antibiotics: none Target Trough: 15-20 mcg/ml for endocarditis WBC: wnl; Renal: Estimated Creatinine Clearance: 151 mL/min (A) (based on SCr of 0.5 mg/ dL (L)).; Temp: afebrile; Culture: blood ngtd, urine mixed GP ольга (contamination); VS: VSS - stable Renal function: UOP:0.5 ml/kg/hr Dosing based on actual body weight of 56.7 kg 01/23: Vanco trough of 14.4 mcg/mL is slightly below goal range; patient's body weight m akes accumulation unlikely 01/24: Vanco trough = 17 mcg/mL -> therapeutic 01/25: Vanco trough = 21.3 mcg/mL 01/26: Vanco trough = 16.6 mcg/mL - therapeutic 01/27: Vanco trough = 15.7 mcg/mL - therapeutic 01/28: Vanco trough = 13.8 mcg/mL - subtherapeutic Plan: 1. Increase vancomycin dose to 1150 mg q 8hr 2. Vancomycin trough ordered for 01/29/19 @ 0900 (draw 60 minutes prior to hanging the 4th d ose) 3. Serum creatinine DAILY for first 3 days, then at least every 3 days while on vancomycin. 4. Will monitor renal function, clinical status, infection markers daily with troughs and d ose adjustment as needed. Definitions: For the purpose of this protocol, "trough" means a steady state trough before the 4th dose of the initial/new dosing regimen and "level" means all other levels drawn including before the 3rd dose References: Vancomycin dosing protocol IDSA guidelines Procalcitonin Algorithm Per P&T-approved Vancomycin Dosing and Monitoring Protocol Electronically signed by: Chemo Mcintosh, Powerhouse Mechanic Supervisor 01/28/2019 10:03 Maurizio Molina MD - 01/27/2019 1511 PDT [facility] Hospitalist Progress Note Sandhya Gil is a 28 y.o. female ASSESSMENT and PLAN: Active Hospital Problems Diagnosis Acute bacterial endocarditis Blurred vision SIRS (systemic inflammatory response syndrome) Heroin dependence Methamphetamine dependence Resolved Hospital Problems No resolved problems to display. 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 - Recent heroin/methamphetamine user on arrival - Echo showed tricuspid vegetation - Arrived withprocalcitoninof 8.68and CRPof 36, elevated inflammatory/infectious ma rkers, fevers at home, although blood cultures neg - 1 major and 2 minor criteria per modified [place] - Started on vancomycin on admission, with improvement in symptoms and inflammatory markers - Discussed with AMS, plan for 4 weeks of IV vancomycin or daptomycin, if able to go to SNF , will order PICC line, currently getting IV abx through central line, if not able to go to SNF, daily outpatient IV daptomycin IV heroin use/methamphetamine use -She declined methadone 01/26, but was feeling some withdrawal 01/27, start at lower dose 5 mg daily - Lorazepam PRN agitation/withdrawal Tobacco use d/o Nicotine patch/lozenges ordered. Blurred vision: - C/o blurred vision 01/25, but unable to get MRI because of anxiety despite lorazepam - Much improved symptoms 01/26, checked head CT which showed (known) pineal cyst, no acute i ntracranial process Disposition : Working with CM Prophylaxis : heparin SUBJECTIVE: Didn't sleep well last night. No chest pain or shortness of breath. No blurred vision. Eating well. No acute complaints. VITALS: Temp: 36.3 C (97.3 F), Pulse: 83, Resp: 16, BP: 104/66, SpO2 97 % on room air Temp Min : 36.3 C (97.3 F) Max: 37.1 C (98.7 F) Weight: 56.7 kg (125 lb) Intake/Output Summary (Last 24 hours) at 01/27/2019 1511 Last data filed at 01/27/2019 1400 Gross per 24 hour Intake 896 ml Output 1000 ml Net -104 ml PHYSICAL EXAM: General: Alert, sleeping but easily arousable Cardiovascular: RRR Respiratory: CTA bilaterally Abdomen: Soft, NT, bowel sounds present Extremities: WWP Reeves catheter present: No DIAGNOSTIC STUDIES: Available data and images were reviewed personally. Significant results and findings are a ddressed here or in the Assessment and Plan. Recent Results (from the past 24 hour(s)) Basic Metabolic Panel Result Value Ref Range Na 140 136 - 145 mmol/L K 3.8 3.4 - 5.1 mmol/L Cl 104 98 - 107 mmol/L CO2 33 (H) 20 - 31 mmol/L Anion Gap 3 3 - 16 mmol/L Glucose 94 60 - 106 mg/dL BUN 8 (L) 9 - 23 mg/dL Creatinine 0.56 0.55 - 1.02 mg/dL eGFR if not >60 >=60 mL/min/1.73m2 Calcium 9.3 8.7 - 10.4 mg/dL BUN/Creatinine Ratio 14.3 CBC no Differential Result Value Ref Range WBC 6.5 4.0 - 11.0 K/uL RBC 3.78 3.70 - 5.20 M/uL Hemoglobin 11.4 (L) 11.5 - 16.0 g/dL Hematocrit 34.8 34.0 - 47.0 % MCV 92.1 83.0 - 101.0 fL MCH 30.2 28.0 - 35.0 pg MCHC 32.8 32.0 - 36.0 g/dL RDW-CV 13.7 <15.0 % RDW-SD 46.7 (H) 35.1 - 46.3 fL Platelet Count 301 140 - 440 K/uL MPV 9.3 6.5 - 12.4 fL % nRBC 0 0 - 2 per 100 WBCs Absolute nRBC 0.00 0.00 - 0.01 K/uL Vancomycin, Trough Result Value Ref Range Date of Last Dose Time of Last Dose Vancomycin Trough 15.7 (H) 5.0 - 10.0 ug/mL Ct Head W Contrast Result Date: 01/26/[address] 01/26/2019 1:28 PM CLINICAL HISTORY: Dizziness, blurred vision, endocardi tis, unable to tolerate MRI, please eval for abscess, has known pineal cyst COMPARISON: None available TECHNIQUE: Axial images are performed through the head following the unevent ful intravenous administration of 85 cc Omnipaque 350 contrast. Coronal and sagittal reform ations are also performed. FINDINGS: The cerebral parenchyma, ventricles, brainstem and ce rebellum appear normal. There is no mass effect, abnormal parenchymal enhancement, conclusi ve evidence of intracranial hemorrhage or suspicious extra-axial abnormality. An 11 mm roun d low-attenuation pineal cyst is apparent, demonstrating partial smooth calcification of its rim. Major intracranial vessels and dural sinuses appear patent and unremarkable, allowing for small rounded radiolucent filling defects in the transverse dural venous sinuses, which are consistent with arachnoid granulations. The orbital contents are symmetric and unremar kable. The bones and soft tissues, including the imaged paranasal sinuses, middle ear caviti es and mastoid air cells, are unremarkable. IMPRESSION - 1. 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 2. NO OTHER VISIBLE INTRACRANIAL OR EXTRACRANIAL ABNORMALITY. Dictated and Signed by: Favio Leung MD Electronically signed: 01/26/2019 1:54 PM Current Facility-Administered Medications: acetaminophen 650 mg Oral Q4H PRN heparin 5,000 Units Subcutaneous 2 times per day LORazepam 1 mg Oral Q4H PRN [START ON 01/28/2019] methadone 5 mg Oral Daily nicotine 1 patch Transdermal Daily PRN nicotine polacrilex 2 mg Oral PRN vancomycin 1 g Intravenous Q8H vancomycin per pharmacy Other Pharmacy Consult Total time of approximately 15 minutes was spent with the patient and/or patient's family, and/or on the patient's floor/unit, of which more than 50% was spent counseling and/or coord ination the patient's care as outlined above. Maurizio Drummond MD 01/27/2019 15:11 [facility] hemo Mcintosh , [employer]house Mechanic Supervisor - 01/27/2019 0747 PDT VANCOMYCIN PER PHARMACY PROTOCOL: AMS/Drug Name - Vanco Patient: Sandhya Gil [id number] Admit: 01/21/2019 23:45 RELEVANT ALLERGIES: NKA 28 yrs old female patient admitted on 01/21/2019 for bactermia Patient is receiving vancom ycin starting on 01/22/19 for bacteremia. Patient has no past medical history on file. . 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 HPI: Per H&P - This is a 28 y.o. female with a past medical history significant for heroin dependence, methamphetamine dependence who presents with fevers and headaches. The symptoms have been going on for 1 week. Patient has had multiple ER visits. Patient states that sh e would have aches over her entire head. She denies any rashes on her skin. Patient states that she injects heroin. She does not share needles but she does not use fresh needles wit h each injection. She usually injects in her lower extremities. Patient reports a history of cellulitis in the lower extrema many years ago that required antibiotics. She currently is not sexually active. Patient has had multiple ER visits with lumbar punctures not reveali ng her source for headache or infection. Most recent blood test shows elevated procalcitoni n and CRP. Antimicrobials - Current Antibiotic Dates of Therapy Vanco 01/22- Antimicrobials - Discontinued Antibiotic Dates of Therapy Historical Vancomycin dosing (previous & current encounter): none Micro/Cultures/Diagnostics: Microbiology Results (Last 14 Days by Collected Date with Culture/Sensitivity) Procedure Component Value Units Date/Time Culture, Blood [[id number]] Collected: 01/22/19214 Order Status: Completed Lab Status: Final result Updated: 01/27/19220 Specimen: Blood from Line Culture No growth after 5 days incubation. Culture, Blood [[id number]] Collected: 01/22/19214 Order Status: Completed Lab Status: Final result Updated: 01/27/19220 Specimen: Peripheral Blood Culture No growth after 5 days incubation. Culture, Blood [[id number]] Order Status: Canceled Lab Status: No result Specimen: Blood Culture, Urine [[id number]] Collected: 01/22/19 001 Order Status: Completed Lab Status: Final result Updated: 01/24/19 112 Specimen: Urine, Clean Catch Culture >100,000 CFU/ml Mixed Gram Positive Ольга Comment: Suggests contamination with urogenital or skin ольга. No further work-up to follow. Relevant cultures from previous admits: Date Source Organisms Sensitivities none Admission Wt: Weight: 56.7 kg (125 lb) Current Wt: Weight: 56.7 kg (125 lb) Min/Max Temp past 24 hours:Temp Av.6 C (97.8 F) Min: 36.2 C (97.2 F) Max: 3 7.1 C (98.7 F) Estimated Creatinine Clearance: 135 mL/min (based on SCr of 0.56 mg/dL). Intake/Output Summary (Last 24 hours) at 01/27/2019927 Last data filed at 01/26/2019 1800 Gross per 24 hour Intake 1160 ml Output 2450 ml Net -1290 ml Temp: [36.2 C (97.2 F)-37.1 C (98.7 F)] 36.3 C (97.3 F) Pulse: [81-85] 83 Resp: [16-17] 16 BP: (104-130)/(66-79) 104/66 Recent Labs Lab 01/27/19 0810 01/27/19 0409 01/26/19 0818 01/26/19 0615 01/25/19 0248 01/24/19 0230 01/23/19 0451 01/23/19 0146 01/22/19 0215 01/21/19 0536 WBC -- 6.5 -- 6.6 5.9 6.3 6.4 -- 8.6 6.5 CREA -- 0.56 -- 0.53* 0.56 0.46* 0.51* -- 0.69 0.55 LACTATE -- -- -- -- -- -- -- -- 0.9 -- VANCOTROUGH 15.7* -- 16.6* -- 21.3* 17.0* -- 14.4* -- -- PROCALCITONI -- -- -- -- -- 0.82* -- -- 4.67* 8.68* CRP -- -- -- -- -- -- -- -- 18.90* 35.50* ESR -- -- -- -- -- -- -- -- 8 -- Imagin/14: CXR - no acute disease 01/22: CXR - no pneumothorax 01/22: ECHO - 0.7 x 0.7 x 1.0 cm oscillating, mobile mass attached to the anterior tricuspid valve leaflet. Findings suggests vegetation. 01/26: CT head - 11 MM Low - attentuation pineal cyst. No other visible intracranial or extr acranial abnormality. Date 01/22 01/23 01/24 01/25 01/26 01/27 Time of Vancomycin draw -- 0146 0230 0248 0800 0800 Vancomycin result -- 14.4 17 21.3 16.6 15.7 LEVEL or TROUGH -- TROUGH TROUGH TROUGH TROUGH TROUGH Serum Creatinine 0.69 0.51 0.46 0.56 0.53 0.56 CrCl (mL/min) >100 >100 >100 >100 >100 > 100 Vanco load/bolus 1250 mg no no no no no Vanco dose - current -- 1000 mg q8hr 1250 mg q8hr 1250 mg q8hr 1000 mg q8hr 1000 mg q8hr Vanco dose - new 1000 mg q8hr 1250 mg q8hr No change Hold 6 hours, restart @ 1000 mg q8hr N o change No change Assessment: Vancomycin Day # 6 Other antibiotics: none Target Trough: 15-20 mcg/ml for endocarditis WBC: wnl; Renal: Estimated Creatinine Clearance: 135 mL/min (based on SCr of 0.56 mg/dL) .; Temp: afebrile; Culture: blood ngtd, urine mixed GP ольга (contamination); VS: VSS - stab le Renal function: UOP: increased 2.9 ml/kg/hr Dosing based on actual body weight of 56.7 kg 01/23: Vanco trough of 14.4 mcg/mL is slightly below goal range; patient's body weight m akes accumulation unlikely 01/24: Vanco trough = 17 mcg/mL -> therapeutic 01/25: Vanco trough = 21.3 mcg/mL 01/26: Vanco trough = 16.6 mcg/mL - therapeutic 01/27: Vanco trough = 15.7 mcg/mL - therapeutic Plan: 1. Continue vancomycin 1000 mg q 8 hr 2. Vancomycin trough ordered for 01/28/19 @ 0800 (draw 60 minutes prior to hanging the 4th d ose) 3. Serum creatinine DAILY for first 3 days, then at least every 3 days while on vancomycin. 4. Will monitor renal function, clinical status, infection markers daily with troughs and d ose adjustment as needed. Definitions: For the purpose of this protocol, "trough" means a steady state trough before the 4th dose of the initial/new dosing regimen and "level" means all other levels drawn including before the 3rd dose References: Vancomycin dosing protocol IDSA guidelines Procalcitonin Algorithm Per P&T-approved Vancomycin Dosing and Monitoring Protocol Electronically signed by: Chemo Mcintosh, Powerhouse Mechanic Supervisor 01/27/2019 9:28 Maurizio Molina MD - 01/26/2019 3194 PDT [facility] PM Hospitalist Progress Note Sandhya Gil is a 28 y.o. female ASSESSMENT and PLAN: Active Hospital Problems Diagnosis Acute bacterial endocarditis Blurred vision SIRS (systemic inflammatory response syndrome) Heroin dependence Methamphetamine dependence Resolved Hospital Problems No resolved problems to display. 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 - Active heroin/methamphetamine user on arrival - Echo showed tricuspid vegetation - Arrived with procalcitonin of 8.68 and CRP of 36, elevated inflammatory/infectious marker s, although blood cultures neg - 1 major and 2 minor criteria per modified [place] - Started on vancomycin on admission, with improvement in symptoms and inflammatory markers - Discussed with AMS, plan for 4 weeks of IV vancomycin or daptomycin, if able to go to SNF , will order PICC line, currently getting IV abx through central line IV heroin use/methamphetamine use - She declined methadone which was ordered, will stop methadone for now unless she has evid ence of withdrawal - Lorazepam PRN agitation/withdrawal Tobacco use d/o Nicotine patch/lozenges ordered. Blurred vision: - C/o blurred vision 01/26, but unable to get MRI because of anxiety despite lorazepam - Much improved symptoms 01/26, checked head CT which showed (known) pineal cyst, no acute i ntracranial process Disposition : Ideally to SNF for IV antibiotics Prophylaxis : heparin SUBJECTIVE: Blurred vision much improved today, close to baseline. No headache or confusion. Declin ed methadone this morning. No chest pain or shortness of breath. VITALS: Temp: 36.2 C (97.2 F), Pulse: 82, Resp: 16, BP: 119/73, SpO2 98 % on room air Temp Min : 36.2 C (97.2 F) Max: 37.3 C (99.1 F) Weight: 56.7 kg (125 lb) Intake/Output Summary (Last 24 hours) at 01/26/2019 1723 Last data filed at 01/26/2019 1454 Gross per 24 hour Intake 1375 ml Output 3400 ml Net -2025 ml PHYSICAL EXAM: General: Alert, no distress Cardiovascular: RRR, no m/r/g Respiratory: CTA bilaterally Abdomen: Soft, NT Extremities: WWP Reeves catheter present: No DIAGNOSTIC STUDIES: Available data and images were reviewed personally. Significant results and findings are a ddressed here or in the Assessment and Plan. Recent Results (from the past 24 hour(s)) Basic Metabolic Panel Result Value Ref Range Na 140 136 - 145 mmol/L K 4.2 3.4 - 5.1 mmol/L Cl 105 98 - 107 mmol/L CO2 34 (H) 20 - 31 mmol/L Anion Gap 1 (L) 3 - 16 mmol/L Glucose 85 60 - 106 mg/dL BUN 7 (L) 9 - 23 mg/dL Creatinine 0.53 (L) 0.55 - 1.02 mg/dL eGFR if not >60 >=60 mL/min/1.73m2 Calcium 9.0 8.7 - 10.4 mg/dL BUN/Creatinine Ratio 13.2 CBC no Differential Result Value Ref Range WBC 6.6 4.0 - 11.0 K/uL RBC 3.83 3.70 - 5.20 M/uL Hemoglobin 11.4 (L) 11.5 - 16.0 g/dL Hematocrit 35.7 34.0 - 47.0 % MCV 93.2 83.0 - 101.0 fL MCH 29.8 28.0 - 35.0 pg MCHC 31.9 (L) 32.0 - 36.0 g/dL RDW-CV 14.0 <15.0 % RDW-SD 47.8 (H) 35.1 - 46.3 fL Platelet Count 308 140 - 440 K/uL MPV 9.2 6.5 - 12.4 fL % nRBC 0 0 - 2 per 100 WBCs Absolute nRBC 0.00 0.00 - 0.01 K/uL Vancomycin, Trough Result Value Ref Range Date of Last Dose Time of Last Dose Vancomycin Trough 16.6 (H) 5.0 - 10.0 ug/mL , Urine, Qual Result Value Ref Range HCG SCREEN, URINE Negative Negative Ct Head W Contrast Result Date: 01/26/[address] 01/26/2019 1:28 PM CLINICAL HISTORY: Dizziness, blurred vision, endocardi tis, unable to tolerate MRI, please eval for abscess, has known pineal cyst COMPARISON: None available TECHNIQUE: Axial images are performed through the head following the unevent ful intravenous administration of 85 cc Omnipaque 350 contrast. Coronal and sagittal reform ations are also performed. FINDINGS: The cerebral parenchyma, ventricles, brainstem and ce rebellum appear normal. There is no mass effect, abnormal parenchymal enhancement, conclusi ve evidence of intracranial hemorrhage or suspicious extra-axial abnormality. An 11 mm roun d low-attenuation pineal cyst is apparent, demonstrating partial smooth calcification of its rim. Major intracranial vessels and dural sinuses appear patent and unremarkable, allowing for small rounded radiolucent filling defects in the transverse dural venous sinuses, which are consistent with arachnoid granulations. The orbital contents are symmetric and unremar kable. The bones and soft tissues, including the imaged paranasal sinuses, middle ear caviti es and mastoid air cells, are unremarkable. IMPRESSION - 1. 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 2. NO OTHER VISIBLE INTRACRANIAL OR EXTRACRANIAL ABNORMALITY. Dictated and Signed by: Favio Leung MD Electronically signed: 01/26/2019 1:54 PM Current Facility-Administered Medications: acetaminophen 650 mg Oral Q4H PRN heparin 5,000 Units Subcutaneous 2 times per day LORazepam 1 mg Oral Q4H PRN LORazepam 2 mg Oral Once PRN nicotine 1 patch Transdermal Daily PRN nicotine polacrilex 2 mg Oral PRN vancomycin 1 g Intravenous Q8H vancomycin per pharmacy Other Pharmacy Consult Total time of approximately 15 minutes was spent with the patient and/or patient's family, and/or on the patient's floor/unit, of which more than 50% was spent counseling and/or coord ination the patient's care as outlined above. Maurizio Drummond MD 01/26/2019 17:23 [facility] Chemo Baxter , Powerhouse Mechanic Supervisor - 01/26/2019 0841 PDT VANCOMYCIN PER PHARMACY PROTOCOL: AMS/Drug Name - Vanco Patient: Sandhya Gil [id number] Admit: 01/21/2019 23:45 RELEVANT ALLERGIES: NKA 28 yrs old female patient admitted on 01/21/2019 for bactermia Patient is receiving vancom ycin starting on 01/22/19 for bacteremia. Patient has no past medical history on file. . 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 HPI: Per H&P - This is a 28 y.o. female with a past medical history significant for heroin dependence, methamphetamine dependence who presents with fevers and headaches. The symptoms have been going on for 1 week. Patient has had multiple ER visits. Patient states that sh e would have aches over her entire head. She denies any rashes on her skin. Patient states that she injects heroin. She does not share needles but she does not use fresh needles wit h each injection. She usually injects in her lower extremities. Patient reports a history of cellulitis in the lower extrema many years ago that required antibiotics. She currently is not sexually active. Patient has had multiple ER visits with lumbar punctures not reveali ng her source for headache or infection. Most recent blood test shows elevated procalcitoni n and CRP. Antimicrobials - Current Antibiotic Dates of Therapy Vanco 01/22- Antimicrobials - Discontinued Antibiotic Dates of Therapy Historical Vancomycin dosing (previous & current encounter): none Micro/Cultures/Diagnostics: Microbiology Results (Last 14 Days by Collected Date with Culture/Sensitivity) Procedure Component Value Units Date/Time Culture, Blood [[id number]] Collected: 01/22/19214 Order Status: Completed Lab Status: Preliminary result Updated: 01/25/19220 Specimen: Blood from Line Culture No growth: Monitored continually by instrument for 5 days Culture, Blood [[id number]] Collected: 01/22/19214 Order Status: Completed Lab Status: Preliminary result Updated: 01/25/19220 Specimen: Peripheral Blood Culture No growth: Monitored continually by instrument for 5 days Culture, Blood [[id number]] Order Status: Canceled Lab Status: No result Specimen: Blood Culture, Urine [[id number]] Collected: 01/22/19 001 Order Status: Completed Lab Status: Final result Updated: 01/24/19 112 Specimen: Urine, Clean Catch Culture >100,000 CFU/ml Mixed Gram Positive Ольга Comment: Suggests contamination with urogenital or skin ольга. No further work-up to follow. Relevant cultures from previous admits: Date Source Organisms Sensitivities none Admission Wt: Weight: 56.7 kg (125 lb) Current Wt: Weight: 56.7 kg (125 lb) Min/Max Temp past 24 hours:Temp Av.7 C (98.1 F) Min: 36.3 C (97.3 F) Max: 3 7.3 C (99.1 F) Estimated Creatinine Clearance: 143 mL/min (A) (based on SCr of 0.53 mg/dL (L)). Intake/Output Summary (Last 24 hours) at 01/26/2019 0842 Last data filed at 01/26/2019 0647 Gross per 24 hour Intake 2165 ml Output 4000 ml Net -1835 ml Temp: [36.3 C (97.3 F)-37.3 C (99.1 F)] 36.8 C (98.2 F) Pulse: [65-78] 65 Resp: [16-18] 16 BP: (101-122)/(60-80) 107/66 Recent Labs Lab 01/26/19 0615 01/25/19 0248 01/24/19 0230 01/23/19 0451 01/23/19 0146 01/22/19 0215 01/21/19 0536 WBC 6.6 5.9 6.3 6.4 -- 8.6 6.5 CREA 0.53* 0.56 0.46* 0.51* -- 0.69 0.55 LACTATE -- -- -- -- -- 0.9 -- VANCOTROUGH -- 21.3* 17.0* -- 14.4* -- -- PROCALCITONI -- -- 0.82* -- -- 4.67* 8.68* CRP -- -- -- -- -- 18.90* 35.50* ESR -- -- -- -- -- 8 -- Imagin/14: CXR - pending Date 01/22 01/23 01/24 01/25 01/26 Time of Vancomycin draw -- 014229 0248 0800 Vancomycin result -- 14.4 17 21.3 16.6 LEVEL or TROUGH -- TROUGH TROUGH TROUGH TROUGH Serum Creatinine 0.69 0.51 0.46 0.56 0.53 CrCl (mL/min) >100 >100 >100 >100 >100 Vanco load/bolus 1250 mg no no no no Vanco dose - current -- 1000 mg q8hr 1250 mg q8hr 1250 mg q8hr 1000 mg q8hr Vanco dose - new 1000 mg q8hr 1250 mg q8hr No change Hold 6 hours, restart @ 1000 mg q8hr N o change Assessment: Vancomycin Day # 5 Other antibiotics: none Target Trough: 15-20 mcg/ml for bacteremia WBC: wnl; Renal: Estimated Creatinine Clearance: 143 mL/min (A) (based on SCr of 0.53 mg /dL (L)).; Temp: afebrile; Culture: blood ngtd, urine mixed GP ольга (contamination); VS: VS S - stable Renal function: UOP: increased 2.9 ml/kg/hr Dosing based on actual body weight of 56.7 kg 01/23: Vanco trough of 14.4 mcg/mL is slightly below goal range; patient's body weight m akes accumulation unlikely 01/24: Vanco trough = 17 mcg/mL -> therapeutic 01/25: Vanco trough = 21.3 mcg/mL 01/26: Vanco trough = 16.6 mcg/mL - therapeutic Plan: 1. Continue vancomycin 1000 mg q 8 hr. 2. Vancomycin trough ordered for 01/27/19 @ 0800 (draw 60 minutes prior to hanging the 4th d ose) 3. Serum creatinine DAILY for first 3 days, then at least every 3 days while on vancomycin. 4. Will monitor renal function, clinical status, infection markers daily with troughs and d ose adjustment as needed. Definitions: For the purpose of this protocol, "trough" means a steady state trough before the 4th dose of the initial/new dosing regimen and "level" means all other levels drawn including before the 3rd dose References: Vancomycin dosing protocol IDSA guidelines Procalcitonin Algorithm Per P&T-approved Vancomycin Dosing and Monitoring Protocol Electronically signed by: Chemo Mcintosh, Powerhouse Mechanic Supervisor 01/26/2019 8:42 Maurizio Molina MD - 01/25/2019 1729 PDT [facility] PMG Hospitalist Progress Note Sandhya Gil is a 28 y.o. female ASSESSMENT and PLAN: Active Hospital Problems Diagnosis Acute bacterial endocarditis Blurred vision SIRS (systemic inflammatory response syndrome) Heroin dependence Methamphetamine dependence Resolved Hospital Problems No resolved problems to display. Culture negative TV endocarditis - Active heroin/methamphetamine user - Echo shows tricuspid vegetation - Arrived with procalcitonin of 8.68 and CRP of 36, elevated inflammatory/infectious marker s, although blood cultures neg - 1 major and 2 minor criteria fper modified [place] - Started on vancomycin on admission, with improvement in symptoms and inflammatory markers - Discussed with AMS, plan for 4 weeks of IV vancomycin or daptomycin IV heroin use/methamphetamine use - Methadone ordered, decreased from 15 to 10 mg bid because of drowsiness/blurred vision - Lorazepam PRN agitation/withdrawal Tobacco use d/o Nicotine patch/lozenges ordered. Blurred vision: - C/o blurred vision today, given her endocarditis and h/o pineal cyst, check brain MRI to make sure no evidence of abscess/acute intracranial process Disposition : Discuss with her/CM how to get her 4 wks of IV antibiotics Prophylaxis : heparin SUBJECTIVE: C/o blurred vision today, believes it is new although not clear how long it has been viviana g on. Has a hard time focusing on words enough to read. Denies any confusion/other neurolo gic deficits. No acute pain currently. VITALS: Temp: 36.4 C (97.5 F), Pulse: 72, Resp: 18, BP: 115/80, SpO2 97 % on room air Temp Min : 36.3 C (97.3 F) Max: 37.2 C (99 F) Weight: 56.7 kg (125 lb) Intake/Output Summary (Last 24 hours) at 01/25/2019 1647 Last data filed at 01/25/2019 1600 Gross per 24 hour Intake 2370 ml Output 2600 ml Net -230 ml PHYSICAL EXAM: General: Alert, anxious Cardiovascular: RRR, no m/r/g Respiratory: CTA bilaterally Abdomen: Soft, NT Extremities: WWP, no stigmata of endocarditis Neurological: Alert and oriented, anxious, but good historian, no facial droop or slurred speech Reeves catheter present: No DIAGNOSTIC STUDIES: Available data and images were reviewed personally. Significant results and findings are a ddressed here or in the Assessment and Plan. Recent Results (from the past 24 hour(s)) Vancomycin, Trough Result Value Ref Range Date of Last Dose Time of Last Dose Vancomycin Trough 21.3 (HH) 5.0 - 10.0 ug/mL Basic Metabolic Panel Result Value Ref Range Na 143 136 - 145 mmol/L K 3.5 3.4 - 5.1 mmol/L Cl 105 98 - 107 mmol/L CO2 33 (H) 20 - 31 mmol/L Anion Gap 5 3 - 16 mmol/L Glucose 142 (H) 60 - 106 mg/dL BUN 6 (L) 9 - 23 mg/dL Creatinine 0.56 0.55 - 1.02 mg/dL eGFR if not >60 >=60 mL/min/1.73m2 Calcium 8.6 (L) 8.7 - 10.4 mg/dL BUN/Creatinine Ratio 10.7 CBC no Differential Result Value Ref Range WBC 5.9 4.0 - 11.0 K/uL RBC 3.74 3.70 - 5.20 M/uL Hemoglobin 11.5 11.5 - 16.0 g/dL Hematocrit 34.3 34.0 - 47.0 % MCV 91.7 83.0 - 101.0 fL MCH 30.7 28.0 - 35.0 pg MCHC 33.5 32.0 - 36.0 g/dL RDW-CV 13.8 <15.0 % RDW-SD 46.8 (H) 35.1 - 46.3 fL Platelet Count 282 140 - 440 K/uL MPV 9.4 6.5 - 12.4 fL % nRBC 0 0 - 2 per 100 WBCs Absolute nRBC 0.00 0.00 - 0.01 K/uL No results found. Current Facility-Administered Medications: acetaminophen 650 mg Oral Q4H PRN heparin 5,000 Units Subcutaneous 2 times per day LORazepam 1 mg Oral Q4H PRN methadone 10 mg Oral 2 times per day nicotine 1 patch Transdermal Daily PRN nicotine polacrilex 2 mg Oral PRN vancomycin 1 g Intravenous Q8H vancomycin per pharmacy Other Pharmacy Consult Total time of approximately 25 minutes was spent with the patient and/or patient's family, and/or on the patient's floor/unit, of which more than 50% was spent counseling and/or coord ination the patient's care as outlined above. Maurizio Drummond MD 01/25/2019 16:47 [facility] Faith Cameron [facility] Student - 01/25/2019 1034 PDTFormatting of this note might be different from the piter kenney [facility] PMG Hospitalist Progress Note Sandhya Gil is a 28 y.o. female ASSESSMENT and PLAN: Active Hospital Problems Diagnosis SIRS (systemic inflammatory response syndrome) Heroin dependence Methamphetamine dependence Resolved Hospital Problems No resolved problems to display. 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 History of IV heroin and inhalational meth use - Hospitalized in November of 2018 for extensive workup for headache including LP and MRI venog karin. Imaging found a 9mm incidental pineal cyst but further workup was negative - On Vanc since admission - ECHO here showed an oscillating shanae the anterior tricuspid valve - Blood cultures have been negative, patient is improving clinically on Vanc and procalcito jovana/CRP have been down trending - AMS consult placed regarding culture negative endocarditis - Anticipating discharge to SNF with 6 weeks IV antibiotic therapy #IV heroin use - Currently on methadone d/t withdrawal symptoms - Very sleepy on exam reporting that she feels 'out of it' - Reducing dose to see if this improves symptoms - Hesitant to discharge with PICC d/t drug use #Meth use - Ativan for w/d symptoms #Tobacco use disorder - Nicotine patch #Pineal cyst - Incidentally found on imaging during hospital stay in November 2018 - At that time a neurosurgery consult recommended no intervention and outpatient follow up with neurosurgery in 3 months - Patient continues to be concerned about how her cyst is affect by her hospital stay - CTM symptoms with possibility for new imaging Disposition : D/C to SNF for antibiotics when placement possible Prophylaxis : Heparin SUBJECTIVE: Had to wake up patient for exam. At this time her only concern was the status of her pine al cyst that was found on previous imaging. She denied chest pain, SOB, headache, and dizzin ess. Returned with Dr. Drummond ~10min later and patient was complaining of blurred vision and that she 'just didn't feel right'. VITALS: Temp: 36.3 C (97.3 F), Pulse: 76, Resp: 16, BP: 101/63, SpO2 96 % on room air Temp Min : 36.3 C (97.3 F) Max: 37.2 C (99 F) Weight: 56.7 kg (125 lb) Intake/Output Summary (Last 24 hours) at 01/25/2019 1034 Last data filed at 01/25/2019 1029 Gross per 24 hour Intake 1662 ml Output 1900 ml Net -238 ml PHYSICAL EXAM: General: Resting, drowsy, NAD Cardiovascular: RRR, no m/r/g Respiratory: CTAB, no increased effort Abdomen: Bowel tones x4, no distension Extremities: Good peripheral pulses, no edema Skin: Warm and dry Neurological: A&Ox4 Psych: Flat affect Reeves catheter present: No DIAGNOSTIC STUDIES: Available data and images were reviewed personally. Significant results and findings are a ddressed here or in the Assessment and Plan. Recent Results (from the past 24 hour(s)) Vancomycin, Trough Result Value Ref Range Date of Last Dose Time of Last Dose Vancomycin Trough 21.3 (HH) 5.0 - 10.0 ug/mL Basic Metabolic Panel Result Value Ref Range Na 143 136 - 145 mmol/L K 3.5 3.4 - 5.1 mmol/L Cl 105 98 - 107 mmol/L CO2 33 (H) 20 - 31 mmol/L Anion Gap 5 3 - 16 mmol/L Glucose 142 (H) 60 - 106 mg/dL BUN 6 (L) 9 - 23 mg/dL Creatinine 0.56 0.55 - 1.02 mg/dL eGFR if not >60 >=60 mL/min/1.73m2 Calcium 8.6 (L) 8.7 - 10.4 mg/dL BUN/Creatinine Ratio 10.7 CBC no Differential Result Value Ref Range WBC 5.9 4.0 - 11.0 K/uL RBC 3.74 3.70 - 5.20 M/uL Hemoglobin 11.5 11.5 - 16.0 g/dL Hematocrit 34.3 34.0 - 47.0 % MCV 91.7 83.0 - 101.0 fL MCH 30.7 28.0 - 35.0 pg MCHC 33.5 32.0 - 36.0 g/dL RDW-CV 13.8 <15.0 % RDW-SD 46.8 (H) 35.1 - 46.3 fL Platelet Count 282 140 - 440 K/uL MPV 9.4 6.5 - 12.4 fL % nRBC 0 0 - 2 per 100 WBCs Absolute nRBC 0.00 0.00 - 0.01 K/uL No results found. Current Facility-Administered Medications: acetaminophen 650 mg Oral Q4H PRN heparin 5,000 Units Subcutaneous 2 times per day LORazepam 1 mg Intravenous Q4H PRN methadone 15 mg Oral 2 times per day nicotine 1 patch Transdermal Daily PRN pharmacy consult - other medications/reasons Other Pharmacy Consult vancomycin 1 g Intravenous Q8H vancomycin per pharmacy Other Pharmacy Consult Faith Puga, Medical Student 01/25/2019 10:34 [facility] Abiel Moore, PharmD - 01/25/2019 0830 PDT AMS PHARMACY CONSULT Consulting physician - Dr. Rojo Consult Reason - Culture negative endocarditis [id number] Admit: 01/21/2019 23:45 Allergies Patient has no known allergies. Sandhya Gil is a 28 y.o. female started on vancomycin for SIRS with possible endocarditis. Patient has no past medical history on file. Micro: Microbiology Results (Last 14 Days by Collected Date with Culture/Sensitivity) Procedure Component Value Units Date/Time Culture, Blood [[id number]] Collected: 01/22/19214 Order Status: Completed Lab Status: Preliminary result Updated: 01/25/19220 Specimen: Blood from Line Culture No growth: Monitored continually by instrument for 5 days Culture, Blood [[id number]] Collected: 01/22/19214 Order Status: Completed Lab Status: Preliminary result Updated: 01/25/19220 Specimen: Peripheral Blood Culture No growth: Monitored continually by instrument for 5 days Culture, Blood [[id number]] Order Status: Canceled Lab Status: No result Specimen: Blood Culture, Urine [[id number]] Collected: 01/22/1918 Order Status: Completed Lab Status: Final result Updated: 01/24/19 112 Specimen: Urine, Clean Catch Culture >100,000 CFU/ml Mixed Gram Positive Ольга Comment: Suggests contamination with urogenital or skin ольга. No further work-up to follow. Recent Labs Lab 01/25/19 0248 01/24/19 0230 01/23/19 0451 01/23/19 0146 01/22/19 0215 01/21/19 0536 WBC 5.9 6.3 6.4 -- 8.6 6.5 CREA 0.56 0.46* 0.51* -- 0.69 0.55 LACTATE -- -- -- -- 0.9 -- VANCOTROUGH 21.3* 17.0* -- 14.4* -- -- PROCALCITONI -- 0.82* -- -- 4.67* 8.68* CRP -- -- -- -- 18.90* 35.50* ESR -- -- -- -- 8 -- Estimated Creatinine Clearance: 135 mL/min (based on SCr of 0.56 mg/dL). Temp: [36.7 C (98 F)-37.2 C (99 F)] 37.2 C (99 F) Pulse: [79-86] 86 Resp: [16-18] 16 BP: (100-116)/(62-69) 116/66 A/P: Vancomycin Day # 4 1. Indication: Culture negative endocarditis 2. Patient has a history of IVDA presenting with fever and aches 3. TTE on 01/22 noted a 0.7 x 0.7 x 1.0 cm oscillating, mobile mass attached to the anterior tricuspid valve leaflet. Findings suggests vegetation. 4. Pt meets 1 major (Echocardiography w/ vegetation definitive/oscillating mass) and 2 loy r dukes criteria (Predisposing cardiac condition or IDU and Fever ? 38C (100.4F)); diagn osis made definitively when 1 major and 3 minor criteria met 5. In the setting of culture negative endocarditis with a history of IVDA a regimen coverin g MRSA and psuedomonas is indicated (often double covering pseudomonas) 6. Given blood cultures remain negative and patient improved (PCT, CRP, and defervesced) on current monotherapy with vancomycin, then continuation of this regimen (without pseudomonal coverage) for the duration of the 4 wk is appropriate 7. Continue vancomycin for a total of 4 wks; can consider daptomycin for a once daily optio n 8. Unfortunately, at this point data in the literature is not strong enough to recommend a po regimen for high risk IVDA. 9. In the event cultures remain negative and pt starts to decline on vancomycin monotherapy , then at that point ADD double coverage for pseudomonas with ciprofloxacin + gentamicin for the treatment course Thank you for the opportunity to participate in the care of this patient. References: IDSA guidelines Procalcitonin Algorithm Holmes Guide Abiel Bills PharmD 01/25/2019 8:30 Randolph Valenzuela P harmD - 01/25/2019 0250 PDT VANCOMYCIN PER PHARMACY PROTOCOL: AMS/Drug Name - Vanco Patient: Sandhya Gil [id number] Admit: 01/21/2019 23:45 RELEVANT ALLERGIES: NKA 28 yrs old female patient admitted on 01/21/2019 for bactermia Patient is receiving vancom ycin starting on 01/22/19 for bacteremia. Patient has no past medical history on file. . 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 HPI: Per H&P - This is a 28 y.o. female with a past medical history significant for heroin dependence, methamphetamine dependence who presents with fevers and headaches. The symptoms have been going on for 1 week. Patient has had multiple ER visits. Patient states that sh e would have aches over her entire head. She denies any rashes on her skin. Patient states that she injects heroin. She does not share needles but she does not use fresh needles wit h each injection. She usually injects in her lower extremities. Patient reports a history of cellulitis in the lower extrema many years ago that required antibiotics. She currently is not sexually active. Patient has had multiple ER visits with lumbar punctures not reveali ng her source for headache or infection. Most recent blood test shows elevated procalcitoni n and CRP. Antimicrobials - Current Antibiotic Dates of Therapy Vanco 01/22- Antimicrobials - Discontinued Antibiotic Dates of Therapy Historical Vancomycin dosing (previous & current encounter): none Micro/Cultures/Diagnostics: Microbiology Results (Last 14 Days by Collected Date with Culture/Sensitivity) Procedure Component Value Units Date/Time Culture, Blood [[id number]] Collected: 01/22/19214 Order Status: Completed Lab Status: Preliminary result Updated: 01/25/19220 Specimen: Blood from Line Culture No growth: Monitored continually by instrument for 5 days Culture, Blood [[id number]] Collected: 01/22/19214 Order Status: Completed Lab Status: Preliminary result Updated: 01/25/19220 Specimen: Peripheral Blood Culture No growth: Monitored continually by instrument for 5 days Culture, Blood [[id number]] Order Status: Canceled Lab Status: No result Specimen: Blood Culture, Urine [[id number]] Collected: 01/22/19 001 Order Status: Completed Lab Status: Final result Updated: 01/24/19 112 Specimen: Urine, Clean Catch Culture >100,000 CFU/ml Mixed Gram Positive Ольга Comment: Suggests contamination with urogenital or skin ольга. No further work-up to follow. Relevant cultures from previous admits: Date Source Organisms Sensitivities none Admission Wt: Weight: 56.7 kg (125 lb) Current Wt: Weight: 56.7 kg (125 lb) Min/Max Temp past 24 hours:Temp Av.7 C (98.1 F) Min: 36.7 C (98 F) Max: 36. 9 C (98.4 F) Estimated Creatinine Clearance: 135 mL/min (based on SCr of 0.56 mg/dL). Intake/Output Summary (Last 24 hours) at 01/25/2019 0332 Last data filed at 01/24/2019 1815 Gross per 24 hour Intake 2260 ml Output 1700 ml Net 560 ml Temp: [36.7 C (98 F)-36.9 C (98.4 F)] 36.7 C (98 F) Pulse: [70-86] 84 Resp: [16-18] 18 BP: (100-120)/(62-74) 112/69 Recent Labs Lab 01/25/19 0248 01/24/19 0230 01/23/19 0451 01/23/19 0146 01/22/19 0215 01/21/19 0536 WBC 5.9 6.3 6.4 -- 8.6 6.5 CREA 0.56 0.46* 0.51* -- 0.69 0.55 LACTATE -- -- -- -- 0.9 -- VANCOTROUGH 21.3* 17.0* -- 14.4* -- -- PROCALCITONI -- 0.82* -- -- 4.67* 8.68* CRP -- -- -- -- 18.90* 35.50* ESR -- -- -- -- 8 -- Imagin/14: CXR - pending Date 01/22 01/23 01/24 01/25 01/26 Time of Vancomycin draw -- 014 0230 0248 ~0800 Vancomycin result -- 14.4 17 21.3 due LEVEL or TROUGH -- TROUGH TROUGH TROUGH TROUGH Serum Creatinine 0.69 0.51 0.46 0.56 CrCl (mL/min) >100 >100 >100 >100 Vanco load/bolus 1250 mg no no no Vanco dose - current -- 1000 mg q8hr 1250 mg q8hr 1250 mg q8hr Vanco dose - new 1000 mg q8hr 1250 mg q8hr No change Hold 6 hours, restart @ 1000 mg q8hr Assessment: Vancomycin Day # 4 Other antibiotics: none Target Trough: 15-20 mcg/ml for bacteremia WBC: nml; Renal: at baseline; Temp: afebrile; Culture: blood ngtd, urine mixed GP ольга (contamination); VS: VSS Renal function: UOP: stable @ 1.2 mL/kg/hr Dosing based on actual body weight of 56.7 kg 01/23: Vanco trough of 14.4 mcg/mL is slightly below goal range; patient's body weight m akes accumulation unlikely 01/24: Vanco trough = 17 mcg/mL -> therapeutic 01/25: Vanco trough = 21.3 mcg/mL Plan: 1. Hold 01/25 0330 dose 2. Restart 6 hours after level draw (i.e., at 0900) at a reduced dose of vancomycin 1000 mg IV q8hr 3. Vancomycin trough ordered for 01/26/19 @ 0800 (draw 60 minutes prior to hanging the 4th dose) 4. Serum creatinine DAILY for first 3 days, then at least every 3 days while on vancomycin. 5. Will monitor renal function, clinical status, infection markers daily with troughs and d ose adjustment as needed. Definitions: For the purpose of this protocol, "trough" means a steady state trough before the 4th dose of the initial/new dosing regimen and "level" means all other levels drawn including before the 3rd dose References: Vancomycin dosing protocol IDSA guidelines Procalcitonin Algorithm Per P&T-approved Vancomycin Dosing and Monitoring Protocol Electronically signed by: Randolph Silver, PharmD 01/25/2019 3:32 Yoana Randolph MD - 01/24/2019 1249 PDT [facility] MARIA GUADALUPE LINO HOSPITALIST PROGRESS NOTE Patient: Sandhya Gil : 1990: Age: 28 y.o. MedRec: [id number] Admission date: 01/21/2019 Hospital day # : 2 Physician author: Yoana Rojo MD Today: 01/24/2019 Assessment and Hospital Course Active Hospital Problems Diagnosis SIRS (systemic inflammatory response syndrome) Heroin dependence Methamphetamine dependence Resolved Hospital Problems No resolved problems to display. 28 yo F with history of IV heroin use, inhalational meth use who presented with fever and h eadache. 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 Patient has a history of IV heroin use. Of note, patient had hospitalization at [facility] in November 2018 with extensive workup for headach e including LP, MRI venogram - negative workup at that time. Echo here showed oscillating mobile mass attached to anterior TV leaflet, likely vegetation . Interestingly, blood cultures here have been negative thus far. Patient has improved clini vinicius and procalcitonin is trending down. Has been on vancomycin since admission. AMS consult placed for guidance regarding antibiotic therapy for culture negative endocardi tis. #IV heroin use Methadone ordered, patient having diffuse pains likely due to w/d. Again very sleepy on my assessment today but she was apparently awake overnight, with feelings of agitation. #Meth use Ativan for w/d symptoms. #Tobacco use d/o Nicotine patch ordered. FEN: gen Ppx: heparin Disposition: pending ID consult, decision about antibiotic therapy Subjective CC: no complaints Patient very sleepy on my exam. Again denies complaints. ROS was performed and was negative except as noted above. Exam Gen: WDWN, nad HEENT: MMM, RIJ central line in place CV: regular rate and rhythm, no m/r/g Pulm: LCAB Abdominal: soft, nontender, nondistended, normal bowel tones Extremities: well perfused, no edema Skin: warm, dry, no rashes Neuro: alert, CN intact, no focal deficits Psych: flat affect, minimally interactive Allergies: No Known Allergies Current Medications: Current Facility-Administered Medications Medication Dose Route Frequency Provider Last Rate Last Dose acetaminophen (TYLENOL) tablet 650 mg 650 mg Oral Q4H PRN Adam White MD heparin 5,000 units/mL injection 5,000 Units 5,000 Units Subcutaneous 2 times per day Adam White MD 5,000 Units at 01/24/19 0903 LORazepam (ATIVAN) injection 1 mg 1 mg Intravenous Q4H PRN Adam White MD 1 mg at 01/24/19 0227 methadone tablet 15 mg 15 mg Oral 2 times per day Adam White MD 15 mg at 9 0901 nicotine (NICODERM) 21 mg/24 hr 1 patch 1 patch Transdermal Daily PRN Venita Kelley D 1 patch at 01/24/19 0239 pharmacy consult - AMS consult Other Pharmacy Consult Yoana Rojo MD vancomycin 1,250 mg in sodium chloride 0.9% 250 mL IVPB 1,250 mg Intravenous Q8H Amanda Silver PharmD 175 mL/hr at 01/24/19 1150 1,250 mg at 01/24/19 1150 vancomycin per pharmacy Other Pharmacy Consult Adam White MD Current Infusions: Objective Data Point of care glucose No results for input(s): POCGLU in the last 168 hours. Labs last 24 hours Recent Results (from the past 24 hour(s)) Vancomycin, Trough Collection Time: 01/24/19 2:30 Result Value Ref Range Date of Last Dose Time of Last Dose Vancomycin Trough 17.0 (H) 5.0 - 10.0 ug/mL Basic Metabolic Panel Collection Time: 01/24/19 2:30 Result Value Ref Range Na 141 136 - 145 mmol/L K 3.5 3.4 - 5.1 mmol/L Cl 108 (H) 98 - 107 mmol/L CO2 30 20 - 31 mmol/L Anion Gap 3 3 - 16 mmol/L Glucose 81 60 - 106 mg/dL BUN 7 (L) 9 - 23 mg/dL Creatinine 0.46 (L) 0.55 - 1.02 mg/dL eGFR if not >60 >=60 mL/min/1.73m2 Calcium 8.6 (L) 8.7 - 10.4 mg/dL BUN/Creatinine Ratio 15.2 CBC no Differential Collection Time: 01/24/19 2:30 Result Value Ref Range WBC 6.3 4.0 - 11.0 K/uL RBC 3.61 (L) 3.70 - 5.20 M/uL Hemoglobin 11.0 (L) 11.5 - 16.0 g/dL Hematocrit 33.5 (L) 34.0 - 47.0 % MCV 92.8 83.0 - 101.0 fL MCH 30.5 28.0 - 35.0 pg MCHC 32.8 32.0 - 36.0 g/dL RDW-CV 13.8 <15.0 % RDW-SD 47.3 (H) 35.1 - 46.3 fL Platelet Count 247 140 - 440 K/uL MPV 9.6 6.5 - 12.4 fL % nRBC 0 0 - 2 per 100 WBCs Absolute nRBC 0.00 0.00 - 0.01 K/uL Procalcitonin Collection Time: 01/24/19 2:30 Result Value Ref Range Procalcitonin 0.82 (H) <=0.50 ng/mL Comment Micro results (more choices using dot micro) Microbiology Results (72 hrs) Procedure Component Value Units Date/Time Culture, Blood [[id number]] Collected: 01/22/19214 Order Status: Completed Lab Status: Preliminary result Updated: 01/22/19 142 Specimen: Blood from Line Culture No growth: Monitored continually by instrument for 5 days Culture, Blood [[id number]] Collected: 01/22/19214 Order Status: Completed Lab Status: Preliminary result Updated: 01/22/19 142 Specimen: Peripheral Blood Culture No growth: Monitored continually by instrument for 5 days Culture, Urine [[id number]] Collected: 01/22/19 001 Order Status: Completed Lab Status: Final result Updated: 01/24/19 112 Specimen: Urine, Clean Catch Culture >100,000 CFU/ml Mixed Gram Positive Ольга Comment: Suggests contamination with urogenital or skin ольга. No further work-up to follow. Radiology results (more choices using dot risresults) No results found. Vitals Ranges: Temp: [36.1 C (97 F)-36.7 C (98.1 F)] 36.7 C (98 F) Pulse: [70-86] 70 Resp: [16-18] 16 BP: (105-120)/(55-74) 115/74 Vitals: Temp: 36.7 C (98 F) BP: 115/74 Pulse: 70 Resp: 16 SpO2: 99 % SpO2 99 % on room air at flow rate L/min Yoana Rojo MD 01/24/2019 12:50 [facility] olph, Vladislav Sharp, [facility] - 01/09 0658 PDT PHARMACY SERVICES: ADMISSION MEDICATION REVIEW Sandhya Gil is a 28 y.o. female admitted on 01/21/2019. Patient is not a reliable historian. Location of Patient when reviewed: ? ED ? Medical Floor Patient s prior to admit medication and over the counter (OTC) medications/herbal supplem ents list obtained from: ? Verbal interview (attempted) ? Patient ABLE to recall name, strength, and directions ? Patient UNABLE to recall name, strength, and direction ? Patient able to recall SOME Name, strength, and directions ? Patient not interviewed or unable to supply information due to: Patient sleeping and wou ld not wake up for interview. ? Patient/family member provided a complete current medication list or bottles ? MAR from SNF facility: ? Doctor's office: ? Pharmacy list names: [facility] ? [place] State Prescription Monitoring Program ? [place] State Prescription Monitoring Program ? [employer] insurance reported information ? Care Everywhere ? Outside Information ? Other sources: Vaccines up to date? Yes No Unsure Influenza x Pneumococcal x Tdap x Shingles x Noted medications discrepancies or medication-related issues: Medication added: Medication: Prior to Admission Sig: Patient taking differently as: Buprenorphine 8 mg tab 2 tabs by mouth once daily Unknown if/how patient is taking this. She woke up for a second and said she had this med then quickly fell back asleep. Last filled at [facility] in [place]: 01/16/19 #[address] Roverto Yanes Recreational Substances, Tobacco & Alcohol use/frequency: ? Tobacco: ? Alcohol: ? Recreational substances: Per Dr. White's H&P " Patient states that she injects heroin. She does not share needles but she does not use fresh needles with each injection" Per Dr. Montes's notes "She reports that she has current or past drug history. Drug: Metha mphetamines." Best possible [facility] ARCHITECT medication list after pharmacy review: PT REPORTED TAKING NOT TAKING Medication Sig Last Dose Dispense Doc. Provider buprenorphine (SUBUTEX) [address] 4 mg under the tongue Daily. Historical Provider , Medication review performed and electronically signed by Elena Trevino, [employer] 2018 6:23 Electronically signed by: Vladislav Giraldo RPH 01/24/2019 6:58 Andra Ramirez RN - 01/24/2019 0500 PDTPt sleeping at 2200 and 0030, appears comfortable, did not wake to jasson GARCIA, anda Valenzuela, PharmD - 01/24/2019 0156 PDTFormatting of this note might be different from the origin al. VANCOMYCIN PER PHARMACY PROTOCOL: AMS/Drug Name - Vanco Patient: Sandhya Gil [id number] Admit: 01/21/2019 23:45 RELEVANT ALLERGIES: NKA 28 yrs old female patient admitted on 01/21/2019 for bactermia Patient is receiving vancom ycin starting on 01/22/19 for bacteremia. Patient has no past medical history on file. . 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 HPI: Per H&P - This is a 28 y.o. female with a past medical history significant for heroin dependence, methamphetamine dependence who presents with fevers and headaches. The symptoms have been going on for 1 week. Patient has had multiple ER visits. Patient states that [place] would have aches over her entire head. She denies any rashes on her skin. Patient states that she injects heroin. She does not share needles but she does not use fresh needles wit h each injection. She usually injects in her lower extremities. Patient reports a history of cellulitis in the lower extrema many years ago that required antibiotics. She currently is not sexually active. Patient has had multiple ER visits with lumbar punctures not reveali ng her source for headache or infection. Most recent blood test shows elevated procalcitoni n and CRP. Antimicrobials - Current Antibiotic Dates of Therapy Vanco 01/22- Antimicrobials - Discontinued Antibiotic Dates of Therapy Historical Vancomycin dosing (previous & current encounter): none Micro/Cultures/Diagnostics: Microbiology Results (Last 14 Days by Collected Date with Culture/Sensitivity) Procedure Component Value Units Date/Time Culture, Blood [[id number]] Collected: 01/22/19 0215 Order Status: Completed Lab Status: Preliminary result Updated: 01/22/19 1421 Specimen: Blood from Line Culture No growth: Monitored continually by instrument for 5 days Culture, Blood [[id number]] Collected: 01/22/19214 Order Status: Completed Lab Status: Preliminary result Updated: 01/22/191420 Specimen: Peripheral Blood Culture No growth: Monitored continually by instrument for 5 days Culture, Blood [[id number]] Order Status: Canceled Lab Status: No result Specimen: Blood Culture, Urine [[id number]] (Normal) Collected: 01/22/1918 Order Status: Completed Lab Status: Preliminary result Updated: 01/23/19637 Specimen: Urine, Clean Catch Culture No growth to date Relevant cultures from previous admits: Date Source Organisms Sensitivities none Admission Wt: Weight: 56.7 kg (125 lb) Current Wt: Weight: 56.7 kg (125 lb) Min/Max Temp past 24 hours:Temp Av.1 C (97 F) Min: 35.7 C (96.3 F) Max: 36. 3 C (97.4 F) Estimated Creatinine Clearance: 164 mL/min (A) (based on SCr of 0.46 mg/dL (L)). Intake/Output Summary (Last 24 hours) at 01/24/2019 0308 Last data filed at 01/23/2019 2247 Gross per 24 hour Intake 740 ml Output 1325 ml Net -585 ml Temp: [35.7 C (96.3 F)-36.3 C (97.4 F)] 36.2 C (97.2 F) Pulse: [70-79] 79 Resp: [16] 16 BP: (105-129)/(55-76) 109/62 Recent Labs Lab 01/24/19 0230 01/23/19 0451 01/23/19 0146 01/22/19 0215 01/21/19 0536 WBC 6.3 6.4 -- 8.6 6.5 CREA 0.46* 0.51* -- 0.69 0.55 LACTATE -- -- -- 0.9 -- VANCOTROUGH 17.0* -- 14.4* -- -- PROCALCITONI -- -- -- 4.67* 8.68* CRP -- -- -- 18.90* 35.50* ESR -- -- -- 8 -- Imagin/14: CXR - pending Date 01/22 01/23 01/24 01/25 Time of Vancomycin draw -- 0146 0230 ~0230 Vancomycin result -- 14.4 17 due LEVEL or TROUGH -- TROUGH TROUGH TROUGH Serum Creatinine 0.69 0.51 0.46 CrCl (mL/min) >100 >100 >100 Vanco load/bolus 1250 mg no no Vanco dose - current -- 1000 mg q8hr 1250 mg q8hr Vanco dose - new 1000 mg q8hr 1250 mg q8hr No change Assessment: Vancomycin Day # 2 Other antibiotics: none Target Trough: 15-20 mcg/ml for bacteremia WBC: nml; Renal: at baseline; Temp: afebrile; Culture: blood ngtd, urine ngtd; VS: VSS Renal function: UOP: stable @ 1 mL/kg/hr Dosing based on actual body weight of 56.7 kg 01/23: Vanco trough of 14.4 is slightly below goal range; patient's body weight makes ac cumulation unlikely 01/24: Vanco trough = 17 -> therapeutic Plan: 1. Continue same dose of vancomycin 1250 mg IV q8hr 2. Vancomycin trough ordered for 01/25/19 @ 0230 (draw 60 minutes prior to hanging the next 4th dose) 3. Serum creatinine DAILY for first 3 days, then at least every 3 days while on vancomycin. 4. Will monitor renal function, clinical status, infection markers daily with troughs and d ose adjustment as needed. Definitions: For the purpose of this protocol, "trough" means a steady state trough before the 4th dose of the initial/new dosing regimen and "level" means all other levels drawn including before the 3rd dose References: Vancomycin dosing protocol IDSA guidelines Procalcitonin Algorithm Per P&T-approved Vancomycin Dosing and Monitoring Protocol Electronically signed by: Randolph Silver, PharmD 01/24/2019 3:08 Yoana Randolph MD - 01/23/2019 1528 PDT [facility] MAR[facility] GUADALUPE LINO HOSPITALIST PROGRESS NOTE Patient: Sandhya Gil : 1990: Age: 28 y.o. MedRec: [id number] Admission date: 01/21/2019 Hospital day # : 1 Physician author: Yoana Rojo MD Today: 01/23/2019 Assessment and Hospital Course Active Hospital Problems Diagnosis SIRS (systemic inflammatory response syndrome) Heroin dependence Methamphetamine dependence Resolved Hospital Problems No resolved problems to display. 28 yo F with history of IV heroin use, inhalational meth use who presented with fever and h eadache. Plan #Fever #Headache Elevated procalcitonin and CRP noted in the ED. Of note, patient had hospitalization at [facility] in November 2018 with extensive workup for headach e including LP, MRI venogram - negative workup at that time. Blood cultures here negative thus far. Echo is pending - will be read tomorrow AM by Cardio logy. Patient has been afebrile and hemodynamically stable here. Procal trending down. Continue vancomycin for now. Patient denies infectious s/sx. #IV heroin use Methadone ordered, patient having diffuse pains likely due to w/d. She has been too sleepy for me to fully/reliably discuss with her whether she would consider abstaining from illicit drug use. FEN: gen Ppx: heparin Disposition: pending echo results Subjective CC: no complaints Patient very sleepy on my exam. Denies complaints. ROS was performed and was negative except as noted above. Exam Gen: WDWN, nad HEENT: MMM, RIJ central line in place CV: regular rate and rhythm, no m/r/g Pulm: LCAB Abdominal: soft, nontender, nondistended, normal bowel tones Extremities: well perfused, no edema Skin: warm, dry, no rashes Neuro: alert, CN intact, no focal deficits Psych: flat affect, minimally interactive Allergies: No Known Allergies Current Medications: Current Facility-Administered Medications Medication Dose Route Frequency Provider Last Rate Last Dose acetaminophen (TYLENOL) tablet 650 mg 650 mg Oral Q4H PRN Adam White MD heparin 5,000 units/mL injection 5,000 Units 5,000 Units Subcutaneous 2 times per day Adam White MD 5,000 Units at 01/23/19 1030 LORazepam (ATIVAN) injection 1 mg 1 mg Intravenous Q4H PRN Adam White MD 1 mg at 01/22/191948 methadone tablet 15 mg 15 mg Oral 2 times per day Adam White MD 15 mg at 9 1031 nicotine (NICODERM) 21 mg/24 hr 1 patch 1 patch Transdermal Daily PRN Venita Kelley 1 patch at 01/22/191948 vancomycin 1,250 mg in sodium chloride 0.9% 250 mL IVPB 1,250 mg Intravenous Q8H Amanda Silver PharmMillie 175 mL/hr at 01/23/19 1031 1,250 mg at 01/23/19 1031 vancomycin per pharmacy Other Pharmacy Consult Adam White MD Current Infusions: Objective Data Point of care glucose No results for input(s): POCGLU in the last 168 hours. Labs last 24 hours Recent Results (from the past 24 hour(s)) Vancomycin, Trough Collection Time: 01/23/19 1:46 Result Value Ref Range Date of Last Dose Time of Last Dose Vancomycin Trough 14.4 (H) 5.0 - 10.0 ug/mL Basic Metabolic Panel Collection Time: 01/23/19 4:51 Result Value Ref Range Na 141 136 - 145 mmol/L K 3.4 3.4 - 5.1 mmol/L Cl 106 98 - 107 mmol/L CO2 28 20 - 31 mmol/L Anion Gap 7 3 - 16 mmol/L Glucose 136 (H) 60 - 106 mg/dL BUN 9 9 - 23 mg/dL Creatinine 0.51 (L) 0.55 - 1.02 mg/dL eGFR if not >60 >=60 mL/min/1.73m2 Calcium 8.6 (L) 8.7 - 10.4 mg/dL BUN/Creatinine Ratio 17.6 CBC no Differential Collection Time: 01/23/19 4:51 Result Value Ref Range WBC 6.4 4.0 - 11.0 K/uL RBC 3.75 3.70 - 5.20 M/uL Hemoglobin 11.5 11.5 - 16.0 g/dL Hematocrit 34.2 34.0 - 47.0 % MCV 91.2 83.0 - 101.0 fL MCH 30.7 28.0 - 35.0 pg MCHC 33.6 32.0 - 36.0 g/dL RDW-CV 13.8 <15.0 % RDW-SD 46.5 (H) 35.1 - 46.3 fL Platelet Count 254 140 - 440 K/uL MPV 9.7 6.5 - 12.4 fL % nRBC 0 0 - 2 per 100 WBCs Absolute nRBC 0.00 0.00 - 0.01 K/uL Micro results (more choices using dot micro) Microbiology Results (72 hrs) Procedure Component Value Units Date/Time Culture, Blood [[id number]] Collected: 01/22/19214 Order Status: Completed Lab Status: Preliminary result Updated: 01/22/19 142 Specimen: Blood from Line Culture No growth: Monitored continually by instrument for 5 days Culture, Blood [[id number]] Collected: 01/22/19214 Order Status: Completed Lab Status: Preliminary result Updated: 01/22/191420 Specimen: Peripheral Blood Culture No growth: Monitored continually by instrument for 5 days Culture, Urine [[id number]] (Normal) Collected: 01/22/19 0019 Order Status: Completed Lab Status: Preliminary result Updated: 01/23/19 06 Specimen: Urine, Clean Catch Culture No growth to date Radiology results (more choices using dot risresults) Xr Chest Ap Portable Result Date: 01/22/2019 CLINICAL INFORMATION: POST DIAGNOSIS TEST RE-EVALUATION. COMPARISON: 01/21/2019. FINDINGS: P ortable frontal chest radiograph. Right internal jugular central venous catheter with the ti p at the mid superior vena cava. Lungs: No focal airspace disease, pleural effusion, or pneu mothorax. Heart/mediastinum: Cardiac silhouette is of normal size. Central pulmonary vascula ture has a normal appearance. IMPRESSION - Right central venous catheter tip at the mid supe rior vena cava. No pneumothorax. Dictated and Signed by: Donal Shafer MD Electronically signed: 01/22/2019 2:25 PM Xr Chest Ap Portable Result Date: 01/22/2019 CLINICAL INFORMATION: POST DIAGNOSIS TEST RE-EVALUATION. COMPARISON: None available. FINDIN GS: Portable frontal chest radiograph Lungs: No focal airspace disease, pleural effusion, or pneumothorax. Heart/mediastinum: Cardiac silhouette is of normal size. Central pulmonary va sculature has a normal appearance. Bones: No acute osseous abnormality appreciated. IMPRESSI ON - No acute disease. Dictated and Signed by: Donal hSafer MD Electronically signed: 2:24 PM Vitals Ranges: Temp: [35.7 C (96.3 F)-36.7 C (98 F)] 36.3 C (97.4 F) Pulse: [66-78] 75 Resp: [16] 16 BP: (110-129)/(70-78) 110/73 Vitals: Temp: 36.3 C (97.4 F) BP: 110/73 Pulse: 75 Resp: 16 SpO2: 98 % SpO2 98 % on room air at flow rate L/min Yoana Rojo MD 01/23/2019 15:29 [facility] Randolph Valenzuela, PharmD - 01/22/2019 1151 PDT ADDENDUM: Date 01/22 01/23 01/24 Time of Vancomycin draw -- 0146 ~0230 Vancomycin result -- 14.4 due LEVEL or TROUGH -- TROUGH TROUGH Serum Creatinine 0.69 0.51 CrCl (mL/min) 110 >100 Vanco load/bolus 1250 mg no Vanco dose - current -- 1000 mg q8hr Vanco dose - new 1000 mg q8hr 1250 mg q8hr Assessment: Vancomycin Day # 2 Other antibiotics: none Target Trough: 15-20 mcg/ml for bacteremia WBC: 8.6->6.4; Renal: 0.69->0.51; Temp: afebrile; Culture: pending; VS: VSS Renal function: UOP: stable, need 24 hrs worth of data to calculate Dosing based on actual body weight of 56.7 kg 01/23: Vanco trough of 14.4 is slightly below goal range; patient's body weight makes ac cumulation unlikely Plan: 1. Increase dose to 1250 mg IV q8h 2. Vancomycin trough ordered for 01/24/19 @ 0230 (draw 60 minutes prior to hanging the next 4th dose) 3. Serum creatinine DAILY for first 3 days, then at least every 3 days while on vancomycin. 4. Will monitor renal function, clinical status, infection markers daily with troughs and d ose adjustment as needed. VANCOMYCIN PER PHARMACY PROTOCOL: AMS/Drug Name - Vanco Patient: Sandhya Sharp Louise [id number] Admit: 01/21/2019 23:45 RELEVANT ALLERGIES: NKA 28 yrs old female patient admitted on 01/21/2019 for bactermia Patient is receiving vancom ycin starting on 01/22/19 for bacteremia. Patient has no past medical history on file. . 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 HPI: Per H&P - This is a 28 y.o. female with a past medical history significant for heroin dependence, methamphetamine dependence who presents with fevers and headaches. The symptoms have been going on for 1 week. Patient has had multiple ER visits. Patient states that [place]ris [place] would have aches over her entire head. She denies any rashes on her skin. Patient states that she injects heroin. She does not share needles but she does not use fresh needles wit h each injection. She usually injects in her lower extremities. Patient reports a history of cellulitis in the lower extrema many years ago that required antibiotics. She currently is not sexually active. Patient has had multiple ER visits with lumbar punctures not reveali ng her source for headache or infection. Most recent blood test shows elevated procalcitoni n and CRP. Antimicrobials - Current Antibiotic Dates of Therapy Vanco 01/22- Antimicrobials - Discontinued Antibiotic Dates of Therapy Historical Vancomycin dosing (previous & current encounter): none Micro/Cultures/Diagnostics: Microbiology Results (Last 14 Days by Collected Date with Culture/Sensitivity) Procedure Component Value Units Date/Time Culture, Blood [[id number]] Collected: 01/22/19214 Order Status: Sent Lab Status: In process Updated: 01/22/19214 Specimen: Blood from Line Culture, Blood [[id number]] Collected: 01/22/19214 Order Status: Sent Lab Status: In process Updated: 01/22/19214 Specimen: Peripheral Blood Culture, Blood [[id number]] Order Status: Canceled Lab Status: No result Specimen: Blood Culture, Urine [[id number]] Collected: 01/22/19 0019 Order Status: Resulted Lab Status: In process Updated: 01/22/1921 Specimen: Urine, Clean Catch Relevant cultures from previous admits: Date Source Organisms Sensitivities none Admission Wt: Weight: 56.7 kg (125 lb) Current Wt: Weight: 56.7 kg (125 lb) Min/Max Temp past 24 hours:Temp Av.3 C (97.4 F) Min: 35.7 C (96.3 F) Max: 3 7.2 C (99 F) Estimated Creatinine Clearance: 110 mL/min (based on SCr of 0.69 mg/dL). No intake or output data in the 24 hours ending 01/22/19 1151 Temp: [35.7 C (96.3 F)-37.2 C (99 F)] 35.8 C (96.4 F) Pulse: [62-107] 62 Resp: [13-18] 16 BP: (118-141)/(75-88) 141/88 Recent Labs Lab 01/22/19 0215 01/21/19 0536 WBC 8.6 6.5 CREA 0.69 0.55 LACTATE 0.9 -- PROCALCITONI 4.67* 8.68* CRP 18.90* 35.50* ESR 8 -- Imagin/14: CXR - pending Date 01/22 Time of Vancomycin draw -- Vancomycin result -- LEVEL or TROUGH Serum Creatinine 0.69 CrCl (mL/min) 110 Vanco load/bolus 1250 mg Vanco dose - current -- Vanco dose - new 1000 mg q8hr Assessment: Vancomycin Day # 1 Other antibiotics: none Target Trough: 15-20 mcg/ml for bacteremia WBC: 8.6; Renal: 0.69; Temp: afebrile; Culture: pending; VS: VSS Renal function: UOP: stable Plan: 5. Vancomycin load of 1250 mg (~20 mg/kg) IVPB x 1 given on 01/22/19 @ 0316, followed by ma intenance vancomycin 1000 mg IVPB q8h 6. Vancomycin trough ordered for 01/23/19 @ 0200 (draw 60 minutes prior to hanging the 4th dose) 7. Serum creatinine DAILY for first 3 days, then at least every 3 days while on vancomycin. 8. Will monitor renal function, clinical status, infection markers daily with troughs and d ose adjustment as needed. Definitions: For the purpose of this protocol, "trough" means a steady state trough before the 4th dose of the initial/new dosing regimen and "level" means all other levels drawn including before the 3rd dose References: Vancomycin dosing protocol IDSA guidelines Procalcitonin Algorithm Per P&T-approved Vancomycin Dosing and Monitoring Protocol Electronically signed by: Kaykay Aponte, PharmD 01/22/2019 11:51 documented in thi s encounter Plan of Treatment +--------+---------+ + + + | Date | Type | Specialty | Care Team | Description | +--------+---------+ + + + | 03/30/ | Office | Neurology | Jd Henderson MD | | | 2018 | Visit | | [address] | | | | | | [place] | | | | | | [address] | | | | | | | | +--------+---------+ + + + + +--------+ + + | Name | Priori | Associated Diagnoses | Date/Time | | | ty | | | + +--------+ + + | ED INFORMATION EXCHANGE | Routin | | 01/21/2019 23:44 PDT | | | e | | | + +--------+ + + documented as of this encounter Procedures + +--------+ + + + | Procedure Name | Priori | Date/Time | Associated Diagnosis | Comments | | | ty | | | | + +--------+ + + + | CK TOTAL | STAT | 01/28/2019 | | Results for this | | | | 13:02 PDT | | procedure are in the | | | | | | results section. | + +--------+ + + + | VANCOMYCIN, TROUGH | Timed | 01/28/2019 | | Results for this | | | | 8:24 PDT | | procedure are in the | | | | | | results section. | + +--------+ + + + | BASIC METABOLIC | Routin | 01/28/2019 | | Results for this | | PANEL | e | 4:28 PDT | | procedure are in the | | | | | | results section. | + +--------+ + + + | VANCOMYCIN, TROUGH | Timed | 01/27/2019 | | Results for this | | | | 8:10 PDT | | procedure are in the | | | | | | results section. | + +--------+ + + + | CBC NO DIFFERENTIAL | Routin | 01/27/2019 | | Results for this | | | e | 4:09 PDT | | procedure are in the | | | | | | results section. | + +--------+ + + + | BASIC METABOLIC | Routin | 01/27/2019 | | Results for this | | PANEL | e | 4:09 PDT | | procedure are in the | | | | | | results section. | + +--------+ + + + | CT HEAD W CONTRAST | Routin | 01/26/2019 | | Results for this | | | e | 13:28 PDT | | procedure are in the | | | | | | results section. | + +--------+ + + + | HCG, URINE, QUAL | Routin | 01/26/2019 | | Results for this | | | e | 13:03 PDT | | procedure are in the | | | | | | results section. | + +--------+ + + + | VANCOMYCIN, TROUGH | Timed | 01/26/2019 | | Results for this | | | | 8:18 PDT | | procedure are in the | | | | | | results section. | + +--------+ + + + | CBC NO DIFFERENTIAL | Routin | 01/26/2019 | | Results for this | | | e | 6:15 PDT | | procedure are in the | | | | | | results section. | + +--------+ + + + | BASIC METABOLIC | Routin | 01/26/2019 | | Results for this | | PANEL | e | 6:15 PDT | | procedure are in the | | | | | | results section. | + +--------+ + + + | CBC NO DIFFERENTIAL | Routin | 01/25/2019 | | Results for this | | | e | 2:48 PDT | | procedure are in the | | | | | | results section. | + +--------+ + + + | JEEVAN TROUGH | Timed | 01/25/2019 | | Results for this | | | | 2:48 PDT | | procedure are in the | | | | | | results section. | + +--------+ + + + | BASIC METABOLIC | Routin | 01/25/2019 | | Results for this | | PANEL | e | 2:48 PDT | | procedure are in the | | | | | | results section. | + +--------+ + + + | PROCALCITONIN, SERUM | Routin | 01/24/2019 | | Results for this | | | e | 2:30 PDT | | procedure are in the | | | | | | results section. | + +--------+ + + + | CBC NO DIFFERENTIAL | Routin | 01/24/2019 | | Results for this | | | e | 2:30 PDT | | procedure are in the | | | | | | results section. | + +--------+ + + + | VANCOMYCIN, TROUGH | Timed | 01/24/2019 | | Results for this | | | | 2:30 PDT | | procedure are in the | | | | | | results section. | + +--------+ + + + | BASIC METABOLIC | Routin | 01/24/2019 | | Results for this | | PANEL | e | 2:30 PDT | | procedure are in the | | | | | | results section. | + +--------+ + + + | CBC NO DIFFERENTIAL | Routin | 01/23/2019 | | Results for this | | | e | 4:51 PDT | | procedure are in the | | | | | | results section. | + +--------+ + + + | BASIC METABOLIC | Routin | 01/23/2019 | | Results for this | | PANEL | e | 4:51 PDT | | procedure are in the | | | | | | results section. | + +--------+ + + + | VANCOMYCIN, TROUGH | Timed | 01/23/2019 | | Results for this | | | | 1:46 PDT | | procedure are in the | | | | | | results section. | + +--------+ + + + | XR CHEST AP PORTABLE | STAT | 01/22/2019 | | Results for this | | | | 3:13 PDT | | procedure are in the | | | | | | results section. | + +--------+ + + + | PROCALCITONIN, SERUM | STAT | 01/22/2019 | | Results for this | | | | 2:15 PDT | | procedure are in the | | | | | | results section. | + +--------+ + + + | TROPONIN I | STAT | 01/22/2019 | | Results for this | | | | 2:15 PDT | | procedure are in the | | | | | | results section. | + +--------+ + + + | SEDIMENTATION RATE | STAT | 01/22/2019 | | Results for this | | | | 2:15 PDT | | procedure are in the | | | | | | results section. | + +--------+ + + + | CULTURE, BLOOD | STAT | 01/22/2019 | | Results for this | | | | 2:15 PDT | | procedure are in the | | | | | | results section. | + +--------+ + + + | CULTURE, BLOOD | STAT | 01/22/2019 | | Results for this | | | | 2:15 PDT | | procedure are in the | | | | | | results section. | + +--------+ + + + | PTT | STAT | 01/22/2019 | | Results for this | | | | 2:15 PDT | | procedure are in the | | | | | | results section. | + +--------+ + + + | PROTIME INR | STAT | 01/22/2019 | | Results for this | | | | 2:15 PDT | | procedure are in the | | | | | | results section. | + +--------+ + + + | CBC WITH | STAT | 01/22/2019 | | Results for this | | DIFFERENTIAL | | 2:15 PDT | | procedure are in the | | | | | | results section. | + +--------+ + + + | C-REACTIVE PROTEIN | Routin | 01/22/2019 | | Results for this | | | e | 2:15 PDT | | procedure are in the | | | | | | results section. | + +--------+ + + + | PHOSPHORUS | STAT | 01/22/2019 | | Results for this | | | | 2:15 PDT | | procedure are in the | | | | | | results section. | + +--------+ + + + | MAGNESIUM | STAT | 01/22/2019 | | Results for this | | | | 2:15 PDT | | procedure are in the | | | | | | results section. | + +--------+ + + + | LACTIC ACID | STAT | 01/22/2019 | | Results for this | | | | 2:15 PDT | | procedure are in the | | | | | | results section. | + +--------+ + + + | COMPREHENSIVE | STAT | 01/22/2019 | | Results for this | | METABOLIC PANEL | | 2:15 PDT | | procedure are in the | | | | | | results section. | + +--------+ + + + | ECHO COMPLETE | STAT | 01/22/2019 | | Results for this | | | | 2:04 PDT | | procedure are in the | | | | | | results section. | + +--------+ + + + | URINALYSIS WITH | STAT | 01/22/2019 | | Results for this | | MICROSCOPIC | | 0:19 PDT | | procedure are in the | | | | | | results section. | + +--------+ + + + | CULTURE, URINE | STAT | 01/22/2019 | | Results for this | | | | 0:19 PDT | | procedure are in the | | | | | | results section. | + +--------+ + + + | XR CHEST AP PORTABLE | STAT | 01/22/2019 | | Results for this | | | | 0:15 PDT | | procedure are in the | | | | | | results section. | + +--------+ + + + | CENTRAL LINE | Routin | 01/21/2019 | | Results for this | | | e | 23:53 PDT | | procedure are in the | | | | | | results section. | + +--------+ + + + | ECG 12 LEAD | STAT | 01/21/2019 | | Results for this | | | | 23:51 PDT | | procedure are in the | | | | | | results section. | + +--------+ + + + | MRI BRAIN W WO | Routin | 11/08/2018 | | Results for this | | CONTRAST | e | 22:15 PDT | | procedure are in the | | | | | | results section. | + +--------+ + + + | MRI VENOGRAM HEAD WO | Routin | 11/08/2018 | | Results for this | | CONTRAST | e | 22:00 PDT | | procedure are in the | | | | | | results section. | + +--------+ + + + documented in this encounter Results CK Total (01/28/2019 13:02 PDT) + +-------+ + + + | Component | Value | Ref Range | Performed | Pathologist | | | | | At | Signature | + +-------+ + + + | CK TOTAL | 47 | 34 - 145 U/L | [facility] | | | | | | [facility] | | | | | | [facility] | | | | | | [facility] - | | | | | | LABORATORY | | + +-------+ + + + + + | Specimen | + + | Blood | + + + + + + + | Performing | Address | City/State/Zipcode | Phone Number | | Organization | | | | + + + + + | [facility] | [address] | [place] | [phone] | | [facility] | | [address] | | | - LABORATORY | | | | + + + + + Vancomycin, Trough (01/28/2019 8:24 PDT) + + + + + + | Component | Value | Ref Range | Performed | Pathologist | | | | | At | Signature | + + + + + + | Date of | | | [facility] | | | Last Dose | | | [facility] | | | | | | [facility] | | | | | | [facility] - | | | | | | LABORATORY | | + + + + + + | Time of | | | [facility] | | | Last Dose | | | [facility] | | | | | | [facility] | | | | | | [facility] - | | | | | | LAB[facility]ATORY | | + + + + + + | Vancomycin | 13.8 (H) | 5.0 - 10.0 | [facility] | | | Trough | | ug/mL | [facility] | | | | | | [facility] | | | | | | [facility] - | | | | | | LABORATORY | | + + + + + + + + | Specimen | + + | Blood | + + + + + + + | Performing | Address | City/State/Zipcode | Phone Number | | Organization | | | | + + + + + | [facility] | [address] | [place] | [phone] | | [facility] | | [address] | | | - LABORATORY | | | | + + + + + Basic Metabolic Panel (01/28/2019 4:28 PDT) + + + + + + | Component | Value | Ref Range | Performed | Pathologist | | | | | At | Signature | + + + + + + | Na | 140 | 136 - 145 | [facility] | | | | | mmol/L | [facility] | | | | | | [facility] | | | | | | C[facility] - | | | | | | LABORATORY | | + + + + + + | K | 3.7 | 3.4 - 5.1 | [facility] | | | | | mmol/L | [facility] | | | | | | [facility] | | | | | | [facility] - | | | | | | LABORATORY | | + + + + + + | Cl | 104 | 98 - 107 mmol/L | [facility] | | | | | | [facility] | | | | | | [facility] | | | | | | [facility] - | | | | | | LABORATORY | | + + + + + + | CO2 | 31 | 20 - 31 mmol/L | [facility] | | | | | | [facility] | | [facility] | | | [facility] | | | | | | [facility] - | | | | | | LABORATORY | | + + + + + + | Anion Gap | 5 | 3 - 16 mmol/L | [facility] | | | | | | [facility] | | | | | | [facility] | | | | | | [facility] - | | | | | | LABORATORY | | + + + + + + | Glucose | 120 (H) | 60 - 106 mg/dL | [facility] | | | | | | [facility] | | | | | | [facility] | | | | | | C[facility] - | | | | | | LABORATORY | | + + + + + + | BUN | 9 | 9 - 23 mg/dL | [facility] | | | | | | [facility] | | | | | | [facility] | | | | | | CENTER - | | | | | | LABORATORY | | + + + + + + | Creatinine | 0.50 (L) | 0.55 - 1.02 | [facility] | | | | | mg/dL | [facility] | | | | | | [facility] | | | | | | CENTER - | | | | | | LABORATORY | | + + + + + + | eGFR if not | >60Comment: GLOMERULAR | >=60 | [facility] | | | | FILTRATION | mL/min/1.73m2 | [facility] | | | [place] | RATE,ESTIMATED mL/min | | MEDICAL | | | | /[id number] than 60 | | CENTER - | | | | Chronic kidney | | LABORATORY | | | | disease,if found over a | | | | | | 3-month period.Less than | | | | | | 15 Kidney | | | | | | failureFor | | | | | | Americans,multiply the | | | | | | calculated GFR by 1.21. | | | | | | | | | | + + + + + + | Calcium | 9.4 | 8.7 - 10.4 | [facility] | | | | | mg/dL | [facility] | | | | | | [facility] | | | | | | [facility] - | | | | | | LABORATORY | | + + + + + + | BUN/Creatin | 18.0 | | [facility] | | | ine Ratio | | | [facility] | | | | | | [facility] | | | | | | CENTER - | | | | | | LABORATORY | | + + + + + + + + | Specimen | + + | Blood | + + + + + + + | Performing | Address | City/State/Zipcode | Phone Number | | Organization | | | | + + + + + | [facility] | [address] | [place] | [phone] | | [facility] | | [address] | | | - LABORATORY | | | | + + + + + Vancomycin, Trough (01/27/2019 8:10 PDT) + + + + + + | Component | Value | Ref Range | Performed | Pathologist | | | | | At | Signature | + + + + + + | Date of | | | [facility] | | | Last Dose | | | [facility] | | | | | | [facility] | | | | | | [facility] - | | | | | | LABORATORY | | + + + + + + | Time of | | | [facility] | | | Last Dose | | | [facility] | | | | | | [facility] | | | | | | [facility] - | | | | | | LABORATORY | | + + + + + + | Vancomycin | 15.7 (H) | 5.0 - 10.0 | [facility] | | | Trough | | ug/mL | [facility] | | | | | | [facility] | | | | | | [facility] - | | | | | | LABORATORY | | + + + + + + + + | Specimen | + + | Blood | + + + + + + + | Performing | Address | City/State/Zipcode | Phone Number | | Organization | | | | + + + + + | [facility] | [address] | [place] | [phone] | | [facility] | | [address] | | | - LABORATORY | | | | + + + + + CBC no Differential (01/27/2019 4:09 PDT) + + + + + + | Component | Value | Ref Range | Performed | Pathologist | | | | | At | Signature | + + + + + + | WBC | 6.5 | 4.0 - 11.0 K/uL | [facility] | | | | | | [facility] | | | | | | [facility] | | | | | | C[facility] - | | | | | | LABORATORY | | + + + + + + | RBC | 3.78 | 3.70 - 5.20 | [facility] | | | | | M/uL | [facility] | | [facility] | | | [facility] | | | | | | CENTER - | | | | | | LABORATORY | | + + + + + + | Hemoglobin | 11.4 (L) | 11.5 - 16.0 | [facility] | | | | | g/dL | [facility] | | | | | | [facility] | | | | | | C[facility] - | | | | | | LABORATORY | | + + + + + + | Hematocrit | 34.8 | 34.0 - 47.0 % | [facility] | | | | | | [facility] | | | | | | [facility] | | | | | | C[facility] - | | | | | | LABORATORY | | + + + + + + | MCV | 92.1 | 83.0 - 101.0 fL | [facility] | | | | | | [facility] | [facility] | [facility] | | | | | | [facility] - | | | | | | LABORATORY | | + + + + + + | MCH | 30.2 | 28.0 - 35.0 pg | [facility] | | | | | | [facility] | | [facility] | [facility] | | | | | | [facility] - | | | | | | LABORATORY | | + + + + + + | MCHC | 32.8 | 32.0 - 36.0 | [facility] | | | | | g/dL | [facility] | | | | | | [facility] | | | | | | C[facility] - | | | | | | LABORATORY | | + + + + + + | RDW-CV | 13.7 | <15.0 % | [facility] | | | | | | [facility] | [facility] | [facility] | | | | | | [facility] - | | | | | | LABORATORY | | + + + + + + | RDW-SD | 46.7 (H) | 35.1 - 46.3 fL | [facility] | | | | | | [facility] | | [facility] | [facility] | | | | | | [facility] - | | | | | | LABORATORY | | + + + + + + | Platelet | 301 | 140 - 440 K/uL | [facility] | | | Count | | | [facility] | | | | | | [facility] | | | | | | [facility] - | | | | | | LABORATORY | | + + + + + + | MPV | 9.3 | 6.5 - 12.4 fL | [facility] | | | | | | [facility] | [facility] | | [facility] | [facility] | | | | | | [facility] - | | | | | | LABORATORY | | + + + + + + | % nRBC | 0 | 0 - 2 per 100 | [facility] | | | | | WBCs | [facility] | | | | [facility] | [facility] | | | | | | CENTER - | | | | | | LABORATORY | | + + + + + + | Absolute | 0.00 | 0.00 - 0.01 | [facility] | | | nRBC | | K/uL | [facility] | | | | [facility] | [facility] | | | | | | CENTER - | | | | | | LABORATORY | | + + + + + + + + | Specimen | + + | Blood | + + + + + + + | Performing | Address | City/State/Zipcode | Phone Number | | Organization | | | | + + + + + | [facility] | [address] | [place], [place] | [phone] | | [facility] | | [address] | | | - LABORATORY | | | | + + + + + Basic Metabolic Panel (01/27/2019 4:09 PDT) + + + + + + | Component | Value | Ref Range | Performed | Pathologist | | | | | At | Signature | + + + + + + | Na | 140 | 136 - 145 | [facility] | | | | | mmol/L | [facility] | | | | | | [facility] | | | | | | CENTER - | | | | | | LABORATORY | | + + + + + + | K | 3.8 | 3.4 - 5.1 | [facility] | | | | | mmol/L | [facility] | | | | | | [facility] | | | | | | CENTER - | | | | | | LABORATORY | | + + + + + + | Cl | 104 | 98 - 107 mmol/L | [facility] | | | | | [facility] | | | | | | [facility] | | | | | | CENTER - | | | | | | LABORATORY | | + + + + + + | CO2 | 33 (H) | 20 - 31 mmol/L | [facility] | | | | | | [facility] | | | | | | [facility] | | | | | | CENTER - | | | | | | LABORATORY | | + + + + + + | Anion Gap | 3 | 3 - 16 mmol/L | [facility] | | | | | | [facility] | | | | | | [facility] | | | | | | CENTER - | | | | | | LABORATORY | | + + + + + + | Glucose | 94 | 60 - 106 mg/dL | [facility] | | | | | | [facility] | | | | | | [facility] | | | | | | CENTER - | | | | | | LABORATORY | | + + + + + + | BUN | 8 (L) | 9 - 23 mg/dL | [facility] | | | | | | [facility] | | | | | | [facility] | | | | | | C[facility] - | | | | | | LABORATORY | | + + + + + + | Creatinine | 0.56 | 0.55 - 1.02 | [facility] | | | | | mg/dL | [facility] | | | | | | MEDICAL | | | | | | CENTER - | | | | | | LABORATORY | | + + + + + + | eGFR if not | >60Comment: GLOMERULAR | >=60 | [facility] | | | | FILTRATION | mL/min/1.73m2 | [facility] | | | [place] | RATE,ESTIMATED mL/min | | MEDICAL | | | | /[id number] than 60 | | CENTER - | | | | Chronic kidney | | LABORATORY | | | | disease,if found over a | | | | | | 3-month period.Less than | | | | | | 15 Kidney | | | | | | failureFor | | | | | | Americans,multiply the | | | | | | calculated GFR by 1.21. | | | | | | | | | | + + + + + + | Calcium | 9.3 | 8.7 - 10.4 | [facility] | | | | | mg/dL | [facility] | | | | | | MEDICAL | | | | | | CENTER - | | | | | | LABORATORY | | + + + + + + | BUN/Creatin | 14.3 | | [facility] | | | ine Ratio | | | [facility] | | | | | | [facility]ICAL | | | | | | CENTER - | | | | | | LABORATORY | | + + + + + + + + | Specimen | + + | Blood | + + + + + + + | Performing | Address | City/State/Zipcode | Phone Number | | Organization | | | | + + + + + | [facility] | [address] | [place] | [phone] | | [facility] | | [address] | | | - LABORATORY | | | | + + + + + CT Head w Contrast (01/26/2019 13:28 PDT) + + | Specimen | + + | | + + + + | Addenda | + + | Addendum by Favio Leung MD on 01/28/2019 9:19 Addendum: Brain MRI performed | | November 08, 2018 at [facility] is now available for | | comparison. The pineal cyst is stable in size. No new abnormality is evident. | | Dictated and Signed by: Favio Leung MD Electronically signed: 01/28/2019 9:16 AM | | | + + + + + | Narrative | Performed At | + + + | [facility]ED HEAD CT 01/26/2019 1:28 PM CLINICAL | [facility] | | HISTORY: Dizziness, blurred vision, endocarditis, unable to | | | tolerate MRI, please eval for abscess, has known pineal cyst | | | COMPARISON: None available TECHNIQUE: Axial images are | | | performed through the head following the uneventful intravenous | | | administration of 85 cc Omnipaque 350 contrast. Coronal and | | | sagittal reformations are also performed. FINDINGS: The | | | cerebral parenchyma, ventricles, brainstem and cerebellum appear | | | normal. There is no mass effect, abnormal parenchymal enhancement, | | | conclusive evidence of intracranial hemorrhage or suspicious | | | extra-axial abnormality. An 11 mm round low-attenuation pineal | | | cyst is apparent, demonstrating partial smooth calcification of its | | | rim. Major intracranial vessels and dural sinuses appear patent | | | and unremarkable, allowing for small rounded radiolucent filling | | | defects in the transverse dural venous sinuses, which are consistent | | | with arachnoid granulations. The orbital contents are symmetric | | | and unremarkable. The bones and soft tissues, including the imaged | | | paranasal sinuses, middle ear cavities and mastoid air cells, are | | | unremarkable. IMPRESSION - 1. 11 MM LOW-ATTENUATION PINEAL | | | CYST. 2. NO OTHER VISIBLE INTRACRANIAL OR EXTRACRANIAL | | | ABNORMALITY. Dictated and Signed by: Favio Leung MD | | | Electronically signed: 01/26/2019 1:54 PM | | + + + + + | Procedure Note | + + | Pernell, Rad Results In - 01/26/2019 1357 [address] 01/26/2019 1:28 PM | | | | CLINICAL HISTORY: Dizziness, blurred vision, endocarditis, unable to tolerate | | MRI, please eval for abscess, has known pineal cyst | | | | COMPARISON: None available | | | | TECHNIQUE: Axial images are performed through the head following the uneventful | | intravenous administration of 85 cc Omnipaque 350 contrast. Coronal and | | sagittal reformations are also performed. | | | | FINDINGS: The cerebral parenchyma, ventricles, brainstem and cerebellum appear | | normal. There is no mass effect, abnormal parenchymal enhancement, conclusive | | evidence of intracranial hemorrhage or suspicious extra-axial abnormality. An | | 11 mm round low-attenuation pineal cyst is apparent, demonstrating partial | | smooth calcification of its rim. Major intracranial vessels and dural sinuses | | appear patent and unremarkable, allowing for small rounded radiolucent filling | | defects in the transverse dural venous sinuses, which are consistent with | | arachnoid granulations. The orbital contents are symmetric and unremarkable. | | The bones and soft tissues, including the imaged paranasal sinuses, middle ear | | cavities and mastoid air cells, are unremarkable. | | | | IMPRESSION - | | 1. 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 | | | | 2. NO OTHER VISIBLE INTRACRANIAL OR EXTRACRANIAL ABNORMALITY. | | | | Dictated and Signed by: Favio Leung MD | | Electronically signed: 01/26/2019 1:54 PM | + + + +---------+ + + | Performing | Address | City/State/Zipcode | Phone Number | | Organization | | | | + +---------+ + + | [facility] | | | | + +---------+ + + , Urine, Qual (01/26/2019 13:03 PDT) + + + + + + | Component | Value | Ref Range | Performed | Pathologist | | | | | At | Signature | + + + + + + | HCG SCREEN, | Negative | Negative | [facility] | | | URINE | | | [facility] | | | | | | MEDICAL | | | | | | CENTER - | | | | | | LABORATORY | | + + + + + + + + | Specimen | + + | Urine | + + + + + + + | Performing | Address | City/State/Zipcode | Phone Number | | Organization | | | | + + + + + | [facility] | [address] | [place] | [phone] | | [facility] | | [address] | | | - LABORATORY | | | | + + + + + Vancomycin, Trough (01/26/2019 8:18 PDT) + + + + + + | Component | Value | Ref Range | Performed | Pathologist | | | | | At | Signature | + + + + + + | Date of | | | [facility] | | | Last Dose | | | [facility] | | | | | | [facility]ICAL | | | | | | CENTER - | | | | | | LABORATORY | | + + + + + + | Time of | | | [facility] | | | Last Dose | | | [facility] | | | | | | [facility] | | | | | | CENTER - | | | | | | LABORATORY | | + + + + + + | Vancomycin | 16.6 (H) | 5.0 - 10.0 | [facility] | | | Trough | | ug/mL | [facility] | | | | | | MEDICAL | | | | | | CENTER - | | | | | | LABORATORY | | + + + + + + + + | Specimen | + + | Blood | + + + + + + + | Performing | Address | City/State/Zipcode | Phone Number | | Organization | | | | + + + + + | [facility] | [address] | [place] | [phone] | | [facility] | | [address] | | | - LABORATORY | | | | + + + + + CBC no Differential (01/26/2019 6:15 PDT) + + + + + + | Component | Value | Ref Range | Performed | Pathologist | | | | | At | Signature | + + + + + + | WBC | 6.6 | 4.0 - 11.0 K/uL | [facility] | | | | | [facility] | | | | | | C[facility] - | | | | | | LABORATORY | | + + + + + + | RBC | 3.83 | 3.70 - 5.20 | [facility] | | | | | M/uL | [facility] | | | | | | [facility] | | | | | | CENTER - | | | | | | LABORATORY | | + + + + + + | Hemoglobin | 11.4 (L) | 11.5 - 16.0 | [facility] | | | | | g/dL | [facility] | | | | | | [facility] | | | | | | CENTER - | | | | | | LABORATORY | | + + + + + + | Hematocrit | 35.7 | 34.0 - 47.0 % | [facility] | | | | | | [facility] | | | | | | [facility]ICAL | | | | | | CENTER - | | | | | | LABORATORY | | + + + + + + | MCV | 93.2 | 83.0 - 101.0 fL | [facility] | | | | | | [facility] | | | | | | [facility]ICAL | | | | | | CENTER - | | | | | | LABORATORY | | + + + + + + | MCH | 29.8 | 28.0 - 35.0 pg | [facility] | | | | | | [facility] | | | | | | MEDICAL | | | | | | CENTER - | | | | | | LABORATORY | | + + + + + + | MCHC | 31.9 (L) | 32.0 - 36.0 | [facility] | | | | | g/dL | [facility] | | | | | | MEDICAL | | | | | | CENTER - | | | | | | LABORATORY | | + + + + + + | RDW-CV | 14.0 | <15.0 % | [facility] | | | | | | [facility] | | | | | | MEDICAL | | | | | | CENTER - | | | | | | LABORATORY | | + + + + + + | RDW-SD | 47.8 (H) | 35.1 - 46.3 fL | [facility] | | | | | | [facility] | | | | | | [facility]ICAL | | | | | | CENTER - | | | | | | LABORATORY | | + + + + + + | Platelet | 308 | 140 - 440 K/uL | [facility] | | | Count | | | [facility] | | | | | | MEDICAL | | | | | | CENTER - | | | | | | LABORATORY | | + + + + + + | MPV | 9.2 | 6.5 - 12.4 fL | [facility] | | | | | | [facility] | | | | | | MEDICAL | | | | | | CENTER - | | | | | | LABORATORY | | + + + + + + | % nRBC | 0 | 0 - 2 per 100 | [facility] | | | | | WBCs | [facility] | | | | | | MEDICAL | | | | | | CENTER - | | | | | | LABORATORY | | + + + + + + | Absolute | 0.00 | 0.00 - 0.01 | [facility] | | | nRBC | | K/uL | [facility] | | | | | | MEDICAL | | | | | | CENTER - | | | | | | LABORATORY | | + + + + + + + + | Specimen | + + | Blood | + + + + + + + | Performing | Address | City/State/Zipcode | Phone Number | | Organization | | | | + + + + + | [facility] | [address] | [place] | [phone] | | [facility] | | [address] | | | - LABORATORY | | | | + + + + + Basic Metabolic Panel (01/26/2019 6:15 PDT) + + + + + + | Component | Value | Ref Range | Performed | Pathologist | | | | | At | Signature | + + + + + + | Na | 140 | 136 - 145 | [facility] | | | | | mmol/L | [facility] | | | | | | MEDICAL | | | | | | CENTER - | | | | | | LABORATORY | | + + + + + + | K | 4.2 | 3.4 - 5.1 | [facility] | | | | | mmol/L | [facility] | | | | | | MEDICAL | | | | | | CENTER - | | | | | | LABORATORY | | + + + + + + | Cl | 105 | 98 - 107 mmol/L | [facility] | | | | | | [facility] | | | | | | MEDICAL | | | | | | CENTER - | | | | | | LABORATORY | | + + + + + + | CO2 | 34 (H) | 20 - 31 mmol/L | [facility] | | | | | | [facility] | | | | | | MEDICAL | | | | | | CENTER - | | | | | | LABORATORY | | + + + + + + | Anion Gap | 1 (L) | 3 - 16 mmol/L | [facility] | | | | | | [facility] | | | | | | MEDICAL | | | | | | CENTER - | | | | | | LABORATORY | | + + + + + + | Glucose | 85 | 60 - 106 mg/dL | [facility] | | | | | | [facility] | | | [facility] | | [facility] | | | | | | C[facility] - | | | | | | LABORATORY | | + + + + + + | BUN | 7 (L) | 9 - 23 mg/dL | [facility] | | | | | | [facility] | | [facility] | | | [facility] | | | | | | C[facility] - | | | | | | LABORATORY | | + + + + + + | Creatinine | 0.53 (L) | 0.55 - 1.02 | [facility] | | | | | mg/dL | [facility] | | [facility] | | | MEDICAL | | | | | | CENTER - | | | | | | LABORATORY | | + + + + + + | eGFR if not | >60Comment: GLOMERULAR | >=60 | [facility] | | | | FILTRATION | mL/min/1.73m2 | [facility] | | | [place] | RATE,ESTIMATED mL/min | | MEDICAL | | | | /1.50a8Wbtx than 60 | | CENTER - | | | | Chronic kidney | | LABORATORY | | | | disease,if found over a | | | | | | 3-month period.Less than | | | | | | 15 Kidney | | | | | | failureFor | | | | | | Americans,multiply the | | | | | | calculated GFR by 1.21. | | | | | | | | | | + + + + + + | Calcium | 9.0 | 8.7 - 10.4 | [facility] | | | | | mg/dL | [facility] | | | | | | MEDICAL | | | | | | CENTER - | | | | | | LABORATORY | | + + + + + + | BUN/Creatin | 13.2 | | [facility] | | | ine Ratio | | | [facility] | | | | | | MEDICAL | | | | | | CENTER - | | | | | | LABORATORY | | + + + + + + + + | Specimen | + + | Blood | + + + + + + + | Performing | Address | City/State/Zipcode | Phone Number | | Organization | | | | + + + + + | [facility] | [address] | [place] | [phone] | | [facility] | | [address] | | | - LABORATORY | | | | + + + + + Vancomycin, Trough (01/25/2019 2:48 PDT) + + + + + + | Component | Value | Ref Range | Performed | Pathologist | | | | | At | Signature | + + + + + + | Date of | | | [facility] | | | Last Dose | | | [facility] | | | | | | MEDICAL | | | | | | CENTER - | | | | | | LABORATORY | | + + + + + + | Time of | | | [facility] | | | Last Dose | | | [facility] | | | | | | MEDICAL | | | | | | CENTER - | | | | | | LABORATORY | | + + + + + + | Vancomycin | 21.3 ()Comment: | 5.0 - 10.0 | [facility] | | | Trough | Critical Result called | ug/mL | [facility] | | | | to and read back by | | MEDICAL | | | | Magaly Ortega RN on | | CENTER - | | | | 01/25/2019 at 3:13 by | | LABORATORY | | | | Jose Fuentes. | | | | + + + + + + + + | Specimen | + + | Blood | + + + + + + + | Performing | Address | City/State/Zipcode | Phone Number | | Organization | | | | + + + + + | [facility] | [address] | [place] | [phone] | | [facility] | | [address] | | | - LABORATORY | | | | + + + + + CBC no Differential (01/25/2019 2:48 PDT) + + + + + + | Component | Value | Ref Range | Performed | Pathologist | | | | | At | Signature | + + + + + + | WBC | 5.9 | 4.0 - 11.0 K/uL | [facility] | | | | | | [facility] | | | | | | MEDICAL | | | | | | CENTER - | | | | | | LABORATORY | | + + + + + + | RBC | 3.74 | 3.70 - 5.20 | [facility] | | | | | M/uL | [facility] | | | | | | MEDICAL | | | | | | CENTER - | | | | | | LABORATORY | | + + + + + + | Hemoglobin | 11.5 | 11.5 - 16.0 | [facility] | | | | | g/dL | [facility] | | | | | | MEDICAL | | | | | | CENTER - | | | | | | LABORATORY | | + + + + + + | Hematocrit | 34.3 | 34.0 - 47.0 % | [facility] | | | | | | [facility] | | | | | | MEDICAL | | | | | | CENTER - | | | | | | LABORATORY | | + + + + + + | MCV | 91.7 | 83.0 - 101.0 fL | [facility] | | | | | | [facility] | | | | | | MEDICAL | | | | | | CENTER - | | | | | | LABORATORY | | + + + + + + | MCH | 30.7 | 28.0 - 35.0 pg | [facility] | | | | | | [facility] | | | | | | MEDICAL | | | | | | CENTER - | | | | | | LABORATORY | | + + + + + + | MCHC | 33.5 | 32.0 - 36.0 | [facility] | | | | | g/dL | [facility] | | | | | | MEDICAL | | | | | | CENTER - | | | | | | LABORATORY | | + + + + + + | RDW-CV | 13.8 | <15.0 % | [facility] | | | | | | [facility] | | | | | | MEDICAL | | | | | | CENTER - | | | | | | LABORATORY | | + + + + + + | RDW-SD | 46.8 (H) | 35.1 - 46.3 fL | [facility] | | | | | | [facility] | | | | | | MEDICAL | | | | | | CENTER - | | | | | | LABORATORY | | + + + + + + | Platelet | 282 | 140 - 440 K/uL | [facility] | | | Count | | | [facility] | | | | | | MEDICAL | | | | | | CENTER - | | | | | | LABORATORY | | + + + + + + | MPV | 9.4 | 6.5 - 12.4 fL | [facility] | | | | | | [facility] | | | | | | MEDICAL | | | | | | CENTER - | | | | | | LABORATORY | | + + + + + + | % nRBC | 0 | 0 - 2 per 100 | [facility] | | | | | WBCs | [facility] | | | | | | MEDICAL | | | | | | CENTER - | | | | | | LABORATORY | | + + + + + + | Absolute | 0.00 | 0.00 - 0.01 | [facility] | | | nRYASIR | | K/Ana | [facility] | | | | | | MEDICAL | | | | | | CENTER - | | | | | | LABORATORY | | + + + + + + + + | Specimen | + + | Blood | + + + + + + + | Performing | Address | City/State/Zipcode | Phone Number | | Organization | | | | + + + + + | [facility] | [address] | [place] | [phone] | | [facility] | | [address] | | | - LABORATORY | | | | + + + + + Basic Metabolic Panel (01/25/2019 2:48 PDT) + + + + + + | Component | Value | Ref Range | Performed | Pathologist | | | | | At | Signature | + + + + + + | Na | 143 | 136 - 145 | [facility] | | | | | mmol/L | [facility] | | | | | | MEDICAL | | | | | | CENTER - | | | | | | LABORATORY | | + + + + + + | K | 3.5 | 3.4 - 5.1 | [facility] | | | | | mmol/L | [facility] | | | | | | MEDICAL | | | | | | CENTER - | | | | | | LABORATORY | | + + + + + + | Cl | 105 | 98 - 107 mmol/L | [facility] | | | | | | [facility] | | | | | | MEDICAL | | | | | | CENTER - | | | | | | LABORATORY | | + + + + + + | CO2 | 33 (H) | 20 - 31 mmol/L | [facility] | | | | | | [facility] | | | | | | MEDICAL | | | | | | CENTER - | | | | | | LABORATORY | | + + + + + + | Anion Gap | 5 | 3 - 16 mmol/L | [facility] | | | | | | [facility] | | | | | | MEDICAL | | | | | | CENTER - | | | | | | LABORATORY | | + + + + + + | Glucose | 142 (H) | 60 - 106 mg/dL | [facility] | | | | | | [facility] | | | | | | MEDICAL | | | | | | CENTER - | | | | | | LABORATORY | | + + + + + + | BUN | 6 (L) | 9 - 23 mg/dL | [facility] | | | | | | [facility] | | | | | | MEDICAL | | | | | | CENTER - | | | | | | LABORATORY | | + + + + + + | Creatinine | 0.56 | 0.55 - 1.02 | [facility] | | | | | mg/dL | [facility] | | | | | | MEDICAL | | | | | | CENTER - | | | | | | LABORATORY | | + + + + + + | eGFR if not | >60Comment: GLOMERULAR | >=60 | [facility] | | | | FILTRATION | mL/min/1.73m2 | [facility] | | | [place] | RATE,ESTIMATED mL/min | | MEDICAL | | | | /1.45m2Wpmj than 60 | | CENTER - | | | | Chronic kidney | | LABORATORY | | | | disease,if found over a | | | | | | 3-month period.Less than | | | | | | 15 Kidney | | | | | | failureFor | | | | | | Americans,multiply the | | | | | | calculated GFR by 1.21. | | | | | | | | | | + + + + + + | Calcium | 8.6 (L) | 8.7 - 10.4 | [facility] | | | | | mg/dL | [facility] | | | | | | MEDICAL | | | | | | CENTER - | | | | | | LABORATORY | | + + + + + + | BUN/Creatin | 10.7 | | [facility] | | | ine Ratio | | | [facility] | | | | | | MEDICAL | | | | | | CENTER - | | | | | | LABORATORY | | + + + + + + + + | Specimen | + + | Blood | + + + + + + + | Performing | Address | City/State/Zipcode | Phone Number | | Organization | | | | + + + + + | [facility] | [address] | [place] | [phone] | | [facility] | | [address] | | | - LABORATORY | | | | + + + + + Procalcitonin (01/24/2019 2:30 PDT) + + + + + + | Component | Value | Ref Range | Performed | Pathologist | | | | | At | Signature | + + + + + + | Procalciton | 0.82 (H) | <=0.50 ng/mL | [facility] | | | in | | | [facility] | | | | | | MEDICAL | | | | | | CENTER - | | | | | | LABORATORY | | + + + + + + | Comment | Comment: < 0.50 | | [facility] | | | | ng/mL:Procalcitonin | | [facility] | | | | levels below 0.50 ng/mL | | MEDICAL | | | | on the first day of | | CENTER - | | | | admission represents a | | LABORATORY | | | | low risk for progression | | | | | | to severe sepsis and/or | | | | | | septic shock, however | | | | | | these do not exclude an | | | | | | infection, because | | | | | | localized infections | | | | | | (without systemic signs) | | | | | | may also be associated | | | | | | with such low | | | | | | levels. > 2.00 | | | | | | ng/mL:Procalcitonin | | | | | | levels above 2.00 ng/mL | | | | | | on the first day of | | | | | | admission represents a | | | | | | high risk for | | | | | | progression to severe | | | | | | sepsis and/or septic | | | | | | shock. If the | | | | | | procalcitonin | | | | | | measurement is performed | | | | | | shortly after the | | | | | | systemic infection | | | | | | process has started | | | | | | (usually less than 6 | | | | | | hours), these values may | | | | | | still be low. As | | | | | | various non-infectious | | | | | | conditions are known to | | | | | | induce procalcitonin as | | | | | | well, procalcitonin | | | | | | levels between 0.50 | | | | | | ng/mL and 2.00 ng/mL | | | | | | should be reviewed | | | | | | carefully to take into | | | | | | account the specific | | | | | | clinical background and | | | | | | condition(s) of the | | | | | | individual patient. | | | | + + + + + + + + | Specimen | + + | Blood | + + + + + + + | Performing | Address | City/State/Zipcode | Phone Number | | Organization | | | | + + + + + | [facility] | [address] | [place] | [phone] | | [facility] | | [id number] | | | - LABORATORY | | | | + + + + + Vancomycin, Trough (01/24/2019 2:30 PDT) + + + + + + | Component | Value | Ref Range | Performed | Pathologist | | | | | At | Signature | + + + + + + | Date of | | | [facility] | | | Last Dose | | | [facility] | | | | | | [facility] | | | | | [facility] - | | | | | | LABORATORY | | + + + + + + | Time of | | | [facility] | | | Last Dose | | | [facility] | | | | | | [facility] | | | | | | [facility] - | | | | | | LABORATORY | | + + + + + + | Vancomycin | 17.0 (H) | 5.0 - 10.0 | [facility] | | | Trough | | ug/mL | [facility] | | | | | | [facility] | | | | | | [facility] - | | | | | | LABORATORY | | + + + + + + + + | Specimen | + + | Blood | + + + + + + + | Performing | Address | City/State/Zipcode | Phone Number | | Organization | | | | + + + + + | [facility] | [address] | [place] | [phone] | | [facility] | | [address] | | | - LABORATORY | | | | + + + + + CBC no Differential (01/24/2019 2:30 PDT) + + + + + + | Component | Value | Ref Range | Performed | Pathologist | | | | | At | Signature | + + + + + + | WBC | 6.3 | 4.0 - 11.0 K/uL | [facility] | | | | | | [facility] | | | | | | [facility] | | | | | | [facility] - | | | | | | LABORATORY | | + + + + + + | RBC | 3.61 (L) | 3.70 - 5.20 | [facility] | | | | | M/uL | [facility] | | | | | | [facility]ICAL | | | | | | C[facility] - | | | | | | LABORATORY | | + + + + + + | Hemoglobin | 11.0 (L) | 11.5 - 16.0 | [facility] | | | | | g/dL | [facility] | | | | | | MEDICAL | | | | | | CENTER - | | | | | | LABORATORY | | + + + + + + | Hematocrit | 33.5 (L) | 34.0 - 47.0 % | [facility] | | | | | | [facility] | | | | | | [facility] | | | | | | [facility] - | | | | | | LABORATORY | | + + + + + + | MCV | 92.8 | 83.0 - 101.0 fL | [facility] | | | | | | [facility] | | | | | | [facility] | | | | | | [facility] - | | | | | | LABORATORY | | + + + + + + | MCH | 30.5 | 28.0 - 35.0 pg | [facility] | | | | | | [facility] | | | | | | [facility] | | | | | | [facility] - | | | | | | LABORATORY | | + + + + + + | MCHC | 32.8 | 32.0 - 36.0 | [facility] | | | | | g/dL | [facility] | | | | | | [facility] | | | | | | CENTER - | | | | | | LABORATORY | | + + + + + + | RDW-CV | 13.8 | <15.0 % | [facility] | | [facility] | [facility] | [facility] | | | | [facility] - | | | | | | LABORATORY | | + + + + + + | RDW-SD | 47.3 (H) | 35.1 - 46.3 fL | [facility] | [facility] | [facility] | | | | | | [facility] | | | | | | [facility] - | | | | | | LABORATORY | | + + + + + + | Platelet | 247 | 140 - 440 K/uL | [facility] | | | Count | | | [facility] | | | | | | [facility] | | | | | | C[facility] - | | | | | | LABORATORY | | + + + + + + | MPV | 9.6 | 6.5 - 12.4 fL | [facility] | | | | | | [facility] | | [facility] | [facility] | [facility] | | | | | | [facility] - | | | | | | LABORATORY | | + + + + + + | % nRBC | 0 | 0 - 2 per 100 | [facility] | | | | | WBCs | [facility] | | | | | | [facility] | | | | | | CENTER - | | | | | | LABORATORY | | + + + + + + | Absolute | 0.00 | 0.00 - 0.01 | [facility] | | | nRBC | | K/uL | [facility] | | | | | | MEDICAL | | | | | | CENTER - | | | | | | LABORATORY | | + + + + + + + + | Specimen | + + | Blood | + + + + + + + | Performing | Address | City/State/Zipcode | Phone Number | | Organization | | | | + + + + + | [facility] | [address] | [place] | [phone] | | [facility] | | [address] | | | - LABORATORY | | | | + + + + + Basic Metabolic Panel (01/24/2019 2:30 PDT) + + + + + + | Component | Value | Ref Range | Performed | Pathologist | | | | | At | Signature | + + + + + + | Na | 141 | 136 - 145 | [facility] | | | | | mmol/L | [facility] | | | | | | [facility]ICAL | | | | | | CENTER - | | | | | | LABORATORY | | + + + + + + | K | 3.5 | 3.4 - 5.1 | [facility] | | | | | mmol/L | [facility] | | | | | | [facility] | | | | | | CENTER - | | | | | | LABORATORY | | + + + + + + | Cl | 108 (H) | 98 - 107 mmol/L | [facility] | | | | | | [facility] | | | | | | [facility] | | | | | | CENTER - | | | | | | LABORATORY | | + + + + + + | CO2 | 30 | 20 - 31 mmol/L | [facility] | | | | | | [facility] | | | | | | [facility] | | | | | | C[facility] - | | | | | | LABORATORY | | + + + + + + | Anion Gap | 3 | 3 - 16 mmol/L | [facility] | | | | | | [facility] | | | | | | [facility] | | | | | | CENTER - | | | | | | LABORATORY | | + + + + + + | Glucose | 81 | 60 - 106 mg/dL | [facility] | | | | | | [facility] | | | | | | [facility] | | | | | | CENTER - | | | | | | LABORATORY | | + + + + + + | BUN | 7 (L) | 9 - 23 mg/dL | [facility] | | | | | | [facility] | | | | | | [facility] | | | | | | CENTER - | | | | | | LABORATORY | | + + + + + + | Creatinine | 0.46 (L) | 0.55 - 1.02 | [facility] | | | | | mg/dL | [facility] | | | | | | MEDICAL | | | | | | CENTER - | | | | | | LABORATORY | | + + + + + + | eGFR if not | >60Comment: GLOMERULAR | >=60 | [facility] | | | | FILTRATION | mL/min/1.73m2 | [facility] | | | [place] | RATE,ESTIMATED mL/min | | MEDICAL | | | | /1.55l3Dpac than 60 | | CENTER - | | | | Chronic kidney | | LABORATORY | | | | disease,if found over a | | | | | | 3-month period.Less than | | | | | | 15 Kidney | | | | | | failureFor | | | | | | Americans,multiply the | | | | | | calculated GFR by 1.21. | | | | | | | | | | + + + + + + | Calcium | 8.6 (L) | 8.7 - 10.4 | [facility] | | | | | mg/dL | [facility] | | | | | | MEDICAL | | | | | | CENTER - | | | | | | LABORATORY | | + + + + + + | BUN/Creatin | 15.2 | | [facility] | | | ine Ratio | | [facility] | | | | | [facility] | | | | | | C[facility] - | | | | | | LABORATORY | | + + + + + + + + | Specimen | + + | Blood | + + + + + + + | Performing | Address | City/State/Zipcode | Phone Number | | Organization | | | | + + + + + | [facility] | [address] | [place] | [phone] | | [facility] | | [address] | | | - LABORATORY | | | | + + + + + CBC no Differential (01/23/2019 4:51 PDT) + + + + + + | Component | Value | Ref Range | Performed | Pathologist | | | | | At | Signature | + + + + + + | WBC | 6.4 | 4.0 - 11.0 K/uL | [facility] | | | | | | [facility] | | | | | | MEDICAL | | | | | | CENTER - | | | | | | LABORATORY | | + + + + + + | RBC | 3.75 | 3.70 - 5.20 | [facility] | | | | | M/uL | [facility] | | | | | | MEDICAL | | | | | | CENTER - | | | | | | LABORATORY | | + + + + + + | Hemoglobin | 11.5 | 11.5 - 16.0 | [facility] | | | | | g/dL | [facility] | | | | | | MEDICAL | | | | | | CENTER - | | | | | | LABORATORY | | + + + + + + | Hematocrit | 34.2 | 34.0 - 47.0 % | [facility] | | | | | | [facility] | | | | | | [facility]ICAL | | | | | | CENTER - | | | | | | LABORATORY | | + + + + + + | MCV | 91.2 | 83.0 - 101.0 fL | [facility] | | | | | | [facility] | | | | | | [facility]ICAL | | | | | | CENTER - | | | | | | LABORATORY | | + + + + + + | MCH | 30.7 | 28.0 - 35.0 pg | [facility] | | | | | | [facility] | | | | | | [facility]ICAL | | | | | | CENTER - | | | | | | LABORATORY | | + + + + + + | MCHC | 33.6 | 32.0 - 36.0 | [facility] | | | | | g/dL | [facility] | | | | | | MEDICAL | | | | | | CENTER - | | | | | | LABORATORY | | + + + + + + | RDW-CV | 13.8 | <15.0 % | [facility] | | | | | | [facility] | | | | | | [facility] | | | | | | CENTER - | | | | | | LABORATORY | | + + + + + + | RDW-SD | 46.5 (H) | 35.1 - 46.3 fL | [facility] | | | | | | [facility] | | | | | | [facility] | | | | | | CENTER - | | | | | | LABORATORY | | + + + + + + | Platelet | 254 | 140 - 440 K/uL | [facility] | | | Count | | | [facility] | | | | | | [facility]ICAL | | | | | | CENTER - | | | | | | LABORATORY | | + + + + + + | MPV | 9.7 | 6.5 - 12.4 fL | [facility] | | | | | | [facility] | | | | | | [facility] | | | | | | CENTER - | | | | | | LABORATORY | | + + + + + + | % nRBC | 0 | 0 - 2 per 100 | [facility] | | | | | WBCs | [facility] | | | | | | [facility]ICAL | | | | | | CENTER - | | | | | | LABORATORY | | + + + + + + | Absolute | 0.00 | 0.00 - 0.01 | [facility] | | | nRBC | | K/uL | [facility] | | | | | | [facility]ICAL | | | | | | CENTER - | | | | | | LABORATORY | | + + + + + + + + | Specimen | + + | Blood | + + + + + + + | Performing | Address | City/State/Zipcode | Phone Number | | Organization | | | | + + + + + | [facility] | [address] | [place], [place] | [phone] | | [facility] | | [address] | | | - LABORATORY | | | | + + + + + Basic Metabolic Panel (01/23/2019 4:51 PDT) + + + + + + | Component | Value | Ref Range | Performed | Pathologist | | | | | At | Signature | + + + + + + | Na | 141 | 136 - 145 | [facility] | | | | | mmol/L | [facility] | | | | | | MEDICAL | | | | | | CENTER - | | | | | | LABORATORY | | + + + + + + | K | 3.4 | 3.4 - 5.1 | [facility] | | | | | mmol/L | [facility] | | | | | | [facility]ICAL | | | | | | CENTER - | | | | | | LABORATORY | | + + + + + + | Cl | 106 | 98 - 107 mmol/L | [facility] | | | | | | [facility] | | | | | | [facility]ICAL | | | | | | CENTER - | | | | | | LABORATORY | | + + + + + + | CO2 | 28 | 20 - 31 mmol/L | [facility] | | | | | | [facility] | | | | | | MEDICAL | | | | | | CENTER - | | | | | | LABORATORY | | + + + + + + | Anion Gap | 7 | 3 - 16 mmol/L | [facility] | | | | | | [facility] | | | | | | MEDICAL | | | | | | CENTER - | | | | | | LABORATORY | | + + + + + + | Glucose | 136 (H) | 60 - 106 mg/dL | [facility] | | | | | | [facility] | | [facility] | | | [facility]ICAL | | | | | | CENTER - | | | | | | LABORATORY | | + + + + + + | BUN | 9 | 9 - 23 mg/dL | [facility] | | | | | | [facility] | | | | | | MEDICAL | | | | | | CENTER - | | | | | | LABORATORY | | + + + + + + | Creatinine | 0.51 (L) | 0.55 - 1.02 | [facility] | | | | | mg/dL | [facility] | | | | | | MEDICAL | | | | | | CENTER - | | | | | | LABORATORY | | + + + + + + | eGFR if not | >60Comment: GLOMERULAR | >=60 | [facility] | | | | FILTRATION | mL/min/1.73m2 | [facility] | | | [place] | RATE,ESTIMATED mL/min | | MEDICAL | | | | /1.96e4Bsez than 60 | | CENTER - | | | | Chronic kidney | | LABORATORY | | | | disease,if found over a | | | | | | 3-month period.Less than | | | | | | 15 Kidney | | | | | | failureFor | | | | | | Americans,multiply the | | | | | | calculated GFR by 1.21. | | | | | | | | | | + + + + + + | Calcium | 8.6 (L) | 8.7 - 10.4 | [facility] | | | | | mg/dL | [facility] | | | | | | MEDICAL | | | | | | CENTER - | | | | | | LABORATORY | | + + + + + + | BUN/Creatin | 17.6 | | [facility] | | | ine Ratio | | | [facility] | | | | | | [facility] | | | | | | CENTER - | | | | | | LABORATORY | | + + + + + + + + | Specimen | + + | Blood | + + + + + + + | Performing | Address | City/State/Zipcode | Phone Number | | Organization | | | | + + + + + | [facility] | [address] | [place] | [phone] | | [facility] | | [address] | | | - LABORATORY | | | | + + + + + Vancomycin, Trough (01/23/2019 1:46 PDT) + + + + + + | Component | Value | Ref Range | Performed | Pathologist | | | | | At | Signature | + + + + + + | Date of | | | [facility] | | | Last Dose | | | [facility] | | | | | [facility] | | | | | | CENTER - | | | | | | LABORATORY | | + + + + + + | Time of | | | [facility] | | | Last Dose | | | [facility] | | | | | | [facility] | | | | | | CENTER - | | | | | | LABORATORY | | + + + + + + | Vancomycin | 14.4 (H) | 5.0 - 10.0 | [facility] | | | Trough | | ug/mL | [facility] | | | | | | MEDICAL | | | | | | CENTER - | | | | | | LABORATORY | | + + + + + + + + | Specimen | + + | Blood | + + + + + + + | Performing | Address | City/State/Zipcode | Phone Number | | Organization | | | | + + + + + | [facility] | [address] | [place] | [phone] | | [facility] | | [address] | | | - LABORATORY | | | | + + + + + XR Chest AP Portable (01/22/2019 3:13 PDT) + + | Specimen | + + | | + + + + + | Narrative | Performed At | + + + | CLINICAL INFORMATION: POST DIAGNOSIS TEST RE-EVALUATION. | [facility] | | COMPARISON: 01/21/2019. FINDINGS: Portable frontal chest | | | radiograph. Right internal jugular central venous catheter with | | | the tip at the mid superior vena cava. Lungs: No focal airspace | | | disease, pleural effusion, or pneumothorax. Heart/mediastinum: | | | Cardiac silhouette is of normal size. Central pulmonary vasculature | | | has a normal appearance. IMPRESSION - Right central venous | | | catheter tip at the mid superior vena cava. No pneumothorax. | | | Dictated and Signed by: Donal Shafer MD Electronically signed: | | | 01/22/2019 2:25 PM | | + + + + + | Procedure Note | + + | Pernell, Negrito Results In - 01/22/2019 1429 PDT | | CLINICAL INFORMATION: POST DIAGNOSIS TEST RE-EVALUATION. | | | | COMPARISON: 01/21/2019. | | | | FINDINGS: | | Portable frontal chest radiograph. | | | | Right internal jugular central venous catheter with the tip at the mid superior | | vena cava. | | | | Lungs: No focal airspace disease, pleural effusion, or pneumothorax. | | | | Heart/mediastinum: Cardiac silhouette is of normal size. Central pulmonary | | vasculature has a normal appearance. | | | | | | IMPRESSION - | | | | Right central venous catheter tip at the mid superior vena cava. | | | | No pneumothorax. | | | | Dictated and Signed by: Donal Shafer MD | | Electronically signed: 01/22/2019 2:25 PM | + + + +---------+ + + | Performing | Address | City/State/Zipcode | Phone Number | | Organization | | | | + +---------+ + + | [facility] | | | | + +---------+ + + C-Reactive Protein (01/22/2019 2:15 PDT) + + + + + + | Component | Value | Ref Range | Performed | Pathologist | | | | | At | Signature | + + + + + + | CRP | 18.90 (H) | <10.00 mg/L | [facility] | | | | | [facility] | | | | | | MEDICAL | | | | | | CENTER - | | | | | | LABORATORY | | + + + + + + + + | Specimen | + + | Blood | + + + + + + + | Performing | Address | City/State/Zipcode | Phone Number | | Organization | | | | + + + + + | [facility] | [address] | [place] | [phone] | | [facility] | | [address] | | | - LABORATORY | | | | + + + + + Sedimentation Rate (01/22/2019 2:15 PDT) + +-------+ + + + | Component | Value | Ref Range | Performed | Pathologist | | | | | At | Signature | + +-------+ + + + | ESR | 8 | <20 mm/hr | [facility] | | | | | | [facility] | | | | | | MEDICAL | | | | | | CENTER - | | | | | | LABORATORY | | + +-------+ + + + + + | Specimen | + + | Blood | + + + + + + + | Performing | Address | City/State/Zipcode | Phone Number | | Organization | | | | + + + + + | [facility] | [address] | [place] | [phone] | | [facility] | | [address] | | | - LABORATORY | | | | + + + + + Troponin I (01/22/2019 2:15 PDT) + + + + + + | Component | Value | Ref Range | Performed | Pathologist | | | | | At | Signature | + + + + + + | Troponin I | 0.01Comment: | <0.06 ng/mL | [facility] | | | | Comment:Reference | | [facility] | | | | Ranges: 0.00-0.06 = | | MEDICAL | | | | NORMAL >0.06 = | | CENTER - | | | | SUSPICIOUS FOR | | LABORATORY | | | | MYOCARDIAL DAMAGE NOTE: | | | | | | Values greater than | | | | | | 0.78 ng/mL have been | | | | | | shown to be strongly | | | | | | associated with acute | | | | | | myocardial infarction. | | | | | | The [employer] | | | | | | Cardiology (ACC) | | | | | | recommends a decision | | | | | | limit of 0.06 ng/mL for | | | | | | this assay. Results | | | | | | greater than 0.06 can | | | | | | reflect a pre-infarct | | | | | | acute coronary syndrome, | | | | | | but can also reflect | | | | | | myocardial necrosis or | | | | | | injury that is not due | | | | | | to coronary artery | | | | | | disease. Some of these | | | | | | causes are sepsis, | | | | | | hypocolemia, atrial | | | | | | fibrillation, heart | | | | | | failure, pulmonary | | | | | | embolism, myocarditis, | | | | | | myocardial contusion, | | | | | | and renal failure. The | | | | | | diagnosis of myocardial | | | | | | infarction should be | | | | | | based on a combination | | | | | | of the patient's | | | | | | clinical presentation | | | | | | and the clinical | | | | | | laboratory test results | | | | | | (especially serial | | | | | | troponin levels). | | | | + + + + + + + + | Specimen | + + | Blood | + + + + + + + | Performing | Address | City/State/Zipcode | Phone Number | | Organization | | | | + + + + + | [facility] | [address] | [place] | [phone] | | [facility] | | [address] | | | - LABORATORY | | | | + + + + + Magnesium (01/22/2019 2:15 PDT) + +-------+ + + + | Component | Value | Ref Range | Performed | Pathologist | | | | | At | Signature | + +-------+ + + + | Magnesium | 2.1 | 1.6 - 2.6 mg/dL | [facility] | | | | | | [facility] | | | | | | MEDICAL | | | | | | CENTER - | | | | | | LABORATORY | | + +-------+ + + + + + | Specimen | + + | Blood | + + + + + + + | Performing | Address | City/State/Zipcode | Phone Number | | Organization | | | | + + + + + | [facility] | [address] | [place] | [phone] | | [facility] | | [address] | | | - LABORATORY | | | | + + + + + Phosphorus (01/22/2019 2:15 PDT) + +-------+ + + + | Component | Value | Ref Range | Performed | Pathologist | | | | | At | Signature | + +-------+ + + + | Phosphorus | 2.7 | 2.4 - 5.1 mg/dL | [facility] | | | | | | [facility] | | | | | | MEDICAL | | | | | | CENTER - | | | | | | LABORATORY | | + +-------+ + + + + + | Specimen | + + | Blood | + + + + + + + | Performing | Address | City/State/Zipcode | Phone Number | | Organization | | | | + + + + + | [facility] | [address] | [place] | [phone] | | [facility] | | [address] | | | - LABORATORY | | | | + + + + + PTT (01/22/2019 2:15 PDT) + +-------+ + + + | Component | Value | Ref Range | Performed | Pathologist | | | | | At | Signature | + +-------+ + + + | aPTT | 30 | 22 - 36 seconds | [facility] | | | | | | [facility] | | | | | | MEDICAL | | | | | | CENTER - | | | | | | LABORATORY | | + +-------+ + + + + + | Specimen | + + | Blood | + + + + + + + | Performing | Address | City/State/Zipcode | Phone Number | | Organization | | | | + + + + + | [facility] | [address] | [place] | [phone] | | [facility] | | [address] | | | - LABORATORY | | | | + + + + + Procalcitonin (01/22/2019 2:15 PDT) + + + + + + | Component | Value | Ref Range | Performed | Pathologist | | | | | At | Signature | + + + + + + | Procalciton | 4.67 ()Comment: | <=0.50 ng/mL | [facility] | | | in | Critical Result called | | [facility] | | | | to and read back by | | MEDICAL | | | | Vladislav Montes MD on | | CENTER - | | | | 01/22/2019 at 2:46 by | | LABORATORY | | | | Jose Fuentes. | | | | + + + + + + | Comment | Comment: < 0.50 | | [facility] | | | | ng/mL:Procalcitonin | | [facility] | | | | levels below 0.50 ng/mL | | MEDICAL | | | | on the first day of | | CENTER - | | | | admission represents a | | LABORATORY | | | | low risk for progression | | | | | | to severe sepsis and/or | | | | | | septic shock, however | | | | | | these do not exclude an | | | | | | infection, because | | | | | | localized infections | | | | | | (without systemic signs) | | | | | | may also be associated | | | | | | with such low | | | | | | levels. > 2.00 | | | | | | ng/mL:Procalcitonin | | | | | | levels above 2.00 ng/mL | | | | | | on the first day of | | | | | | admission represents a | | | | | | high risk for | | | | | | progression to severe | | | | | | sepsis and/or septic | | | | | | shock. If the | | | | | | procalcitonin | | | | | | measurement is performed | | | | | | shortly after the | | | | | | systemic infection | | | | | | process has started | | | | | | (usually less than 6 | | | | | | hours), these values may | | | | | | still be low. As | | | | | | various non-infectious | | | | | | conditions are known to | | | | | | induce procalcitonin as | | | | | | well, procalcitonin | | | | | | levels between 0.50 | | | | | | ng/mL and 2.00 ng/mL | | | | | | should be reviewed | | | | | | carefully to take into | | | | | | account the specific | | | | | | clinical background and | | | | | | condition(s) of the | | | | | | individual patient. | | | | + + + + + + + + | Specimen | + + | Blood | + + + + + + + | Performing | Address | City/State/Zipcode | Phone Number | | Organization | | | | + + + + + | [facility] | [address] | [place] | [phone] | | [facility] | | [address] | | | - LABORATORY | | | | + + + + + Culture, Blood (01/22/2019 2:15 PDT) + + + + + + | Component | Value | Ref Range | Performed | Pathologist | | | | | At | Signature | + + + + + + | Culture | No growth after 5 days | | [facility] | | | | incubation. | | [facility] | | | | | | MEDICAL | | | | | | CENTER - | | | | | | LABORATORY | | + + + + + + + + | Specimen | + + | Blood | + + + + + + + | Performing | Address | City/State/Zipcode | Phone Number | | Organization | | | | + + + + + | [facility] | [address] | [place] | [phone] | | [facility] | | [address] | | | - LABORATORY | | | | + + + + + Culture, Blood (01/22/2019 2:15 PDT) + + + + + + | Component | Value | Ref Range | Performed | Pathologist | | | | | At | Signature | + + + + + + | Culture | No growth after 5 days | | [facility] | | | | incubation. | | [facility] | | | | | | MEDICAL | | | | | | CENTER - | | | | | | LABORATORY | | + + + + + + + + | Specimen | + + | Blood | + + + + + + + | Performing | Address | City/State/Zipcode | Phone Number | | Organization | | | | + + + + + | [facility] | [address] | [place] | [phone] | | [facility] | | [address] | | | - LABORATORY | | | | + + + + + Lactic Acid (01/22/2019 2:15 PDT) + +-------+ + + + | Component | Value | Ref Range | Performed | Pathologist | | | | | At | Signature | + +-------+ + + + | Lactate | 0.9 | 0.5 - 2.2 | [facility] | | | | | mmol/L | [facility] | | | | | | MEDICAL | | | | | | CENTER - | | | | | | LABORATORY | | + +-------+ + + + + + | Specimen | + + | Blood | + + + + + + + | Performing | Address | City/State/Zipcode | Phone Number | | Organization | | | | + + + + + | [facility] | [address] | [place] | [phone] | | [facility] | | [address] | | | - LABORATORY | | | | + + + + + Protime INR (01/22/2019 2:15 PDT) + + + + + + | Component | Value | Ref Range | Performed | Pathologist | | | | | At | Signature | + + + + + + | Prothrombin | 13.2 | 11.3 - 13.9 | [facility] | | | Time | | seconds | [facility] | | | | | | MEDICAL | | | | | | CENTER - | | | | | | LABORATORY | | + + + + + + | INR | 1.0Comment: Usual Oral | 0.9 - 1.1 | [facility] | | | | Anticoagulation | | [facility] | | | | Range: 2.0 - | | MEDICAL | | | | 3.0High Level Oral | | CENTER - | | | | Anticoagulation Range: | | LABORATORY | | | | 2.5 - 3.5 | | | | + + + + + + + + | Specimen | + + | Blood | + + + + + + + | Performing | Address | City/State/Zipcode | Phone Number | | Organization | | | | + + + + + | [facility] | [address] | [place] | [phone] | | [facility] | | [address] | | | - LABORATORY | | | | + + + + + Comprehensive Metabolic Panel (01/22/2019 2:15 PDT) + + + + + + | Component | Value | Ref Range | Performed | Pathologist | | | | | At | Signature | + + + + + + | Na | 141 | 136 - 145 | [facility] | | | | | mmol/L | [facility] | | | | | | MEDICAL | | | | | | CENTER - | | | | | | LABORATORY | | + + + + + + | K | 2.9 (L) | 3.4 - 5.1 | [facility] | | | | | mmol/L | [facility] | | | | | | MEDICAL | | | | | | CENTER - | | | | | | LABORATORY | | + + + + + + | Cl | 107 | 98 - 107 mmol/L | [facility] | | | | | | [facility] | | | | | | MEDICAL | | | | | | CENTER - | | | | | | LABORATORY | | + + + + + + | CO2 | 25 | 20 - 31 mmol/L | [facility] | | | | | | [facility] | [facility] | | | | [facility] | | | | | | [facility] - | | | | | | LABORATORY | | + + + + + + | Anion Gap | 9 | 3 - 16 mmol/L | [facility] | | | | | | [facility] | [facility] | [facility] | | [facility] | | | | | | [facility] - | | | | | | LABORATORY | | + + + + + + | Glucose | 139 (H) | 60 - 106 mg/dL | [facility] | | | | | | [facility] | [facility] | | | | [facility] | | | | | | [facility] - | | | | | | LABORATORY | | + + + + + + | BUN | 12 | 9 - 23 mg/dL | [facility] | | | | | | [facility] | [facility] | | [facility] | [facility] | | | | | | [facility] - | | | | | | LABORATORY | | + + + + + + | Creatinine | 0.69 | 0.55 - 1.02 | [facility] | | | | | mg/dL | [facility] | | | | | | [facility] | | | | | | [facility] - | | | | | | LABORATORY | | + + + + + + | eGFR if not | >60Comment: GLOMERULAR | >=60 | [facility] | | | | FILTRATION | mL/min/1.73m2 | [facility] | | | [place] | RATE,ESTIMATED mL/min | | MEDICAL | | | | /1.98n2Dxre than 60 | | CENTER - | | | | Chronic kidney | | LABORATORY | | | | disease,if found over a | | | | | | 3-month period.Less than | | | | | | 15 Kidney | | | | | | failureFor | | | | | | Americans,multiply the | | | | | | calculated GFR by 1.21. | | | | | | | | | | + + + + + + | Calcium | 9.5 | 8.7 - 10.4 | [facility] | | | | | mg/dL | [facility] | | | | | | [facility] | | | | | | [facility] - | | | | | | LABORATORY | | + + + + + + | Albumin | 4.0 | 3.2 - 4.8 g/dL | [facility] | | | | | | [facility] | | | | | | [facility] | | | | | | [facility] - | | | | | | LABORATORY | | + + + + + + | Bilirubin | 0.3 | 0.3 - 1.2 mg/dL | [facility] | | | Total | | | [facility] | | | | | | [facility] | | | | | | [facility] - | | | | | | LABORATORY | | + + + + + + | Total | 6.3 | 5.7 - 8.2 g/dL | [facility] | | | Protein | | | [facility] | | | | | | [facility] | | | | | | [facility] - | | | | | | LABORATORY | | + + + + + + | AST | 32 | 0 - 34 U/L | [facility] | | | | | | [facility] | | | [facility] | | [facility] | | | | | | [facility] - | | | | | | LABORATORY | | + + + + + + | ALT | 17 | 10 - 49 U/L | [facility] | | | | | | [facility] | | [facility] | | | [facility] | | | | | | [facility] - | | | | | | LABORATORY | | + + + + + + | Alkaline | 68 | 46 - 116 U/L | [facility] | | | Phosphatase | | | [facility] | | | | | | [facility] | | | | | | CENTER - | | | | | | LABORATORY | | + + + + + + | Globulin | 2.3 | 2.1 - 3.8 g/dL | [facility] | | | | | | [facility] | | | | | | [facility] | | | | | | [facility] - | | | | | | LABORATORY | | + + + + + + | Albumin/Delia | 1.7 | 0.8 - 1.9 | [facility] | | | bulin Ratio | | | [facility] | | | | | | [facility] | | | | | | [facility] - | | | | | | LABORATORY | | + + + + + + | BUN/Creatin | 17.4 | | [facility] | | | ine Ratio | | | [facility] | | | | | | [facility] | | | | | | CENTER - | | | | | | LABORATORY | | + + + + + + + + | Specimen | + + | Blood | + + + + + + + | Performing | Address | City/State/Zipcode | Phone Number | | Organization | | | | + + + + + | [facility] | [address] | [place] | [phone] | | [facility] | | [address] | | | - LABORATORY | | | | + + + + + CBC with Differential (01/22/2019 2:15 PDT) + + + + + + | Component | Value | Ref Range | Performed | Pathologist | | | | | At | Signature | + + + + + + | WBC | 8.6 | 4.0 - 11.0 K/uL | [facility] | | | | | | [facility] | | | | | | MEDICAL | | | | | | CENTER - | | | | | | LABORATORY | | + + + + + + | RBC | 4.03 | 3.70 - 5.20 | [facility] | | | | | M/uL | [facility] | | | | | | MEDICAL | | | | | | CENTER - | | | | | | LABORATORY | | + + + + + + | Hemoglobin | 12.2 | 11.5 - 16.0 | [facility] | | | | | g/dL | [facility] | | | | | | MEDICAL | | | | | | CENTER - | | | | | | LABORATORY | | + + + + + + | Hematocrit | 36.1 | 34.0 - 47.0 % | [facility] | | | | | | [facility] | | | | | | [facility] | | | | | | CENTER - | | | | | | LABORATORY | | + + + + + + | MCV | 89.6 | 83.0 - 101.0 fL | [facility] | | | | | | [facility] | | | | | | [facility] | | | | | | CENTER - | | | | | | LABORATORY | | + + + + + + | MCH | 30.3 | 28.0 - 35.0 pg | [facility] | | | | | | [facility] | | | | | | MEDICAL | | | | | | CENTER - | | | | | | LABORATORY | | + + + + + + | MCHC | 33.8 | 32.0 - 36.0 | [facility] | | | | | g/dL | [facility] | | | | | | [facility] | | | | | | C[facility] - | | | | | | LABORATORY | | + + + + + + | RDW-CV | 13.8 | <15.0 % | [facility] | | | | | | [facility] | | | | | | [facility] | | | | | | C[facility] - | | | | | | LABORATORY | | + + + + + + | RDW-SD | 45.2 | 35.1 - 46.3 fL | [facility] | | | | | | [facility] | | | | | | [facility] | | | | | | C[facility] - | | | | | | LABORATORY | | + + + + + + | Platelet | 280 | 140 - 440 K/uL | [facility] | | | Count | | | [facility] | | | | | | MEDICAL | | | | | | CENTER - | | | | | | LABORATORY | | + + + + + + | MPV | 9.7 | 6.5 - 12.4 fL | [facility] | | | | | | [facility] | | | | | | [facility]ICAL | | | | | | CENTER - | | | | | | LABORATORY | | + + + + + + | % | 39.1 (L) | 45.0 - 82.0 % | [facility] | | | Neutrophils | | | [facility] | | | | | | MEDICAL | | | | | | CENTER - | | | | | | LABORATORY | | + + + + + + | % | 50.9 (H) | 20.0 - 45.0 % | [facility] | | | Lymphocytes | | | [facility] | | | | | | MEDICAL | | | | | | CENTER - | | | | | | LABORATORY | | + + + + + + | % Monocytes | 7.1 | 4.0 - 12.0 % | [facility] | | | | | | [facility] | | | | | | [facility]ICAL | | | | | | CENTER - | | | | | | LABORATORY | | + + + + + + | % | 1.9 | 0.0 - 5.0 % | [facility] | | | Eosinophils | | | [facility] | | | | | | MEDICAL | | | | | | CENTER - | | | | | | LABORATORY | | + + + + + + | % Basophils | 0.5 | 0.0 - 1.0 % | [facility] | | | | | | [facility] | | | | | | MEDICAL | | | | | | CENTER - | | | | | | LABORATORY | | + + + + + + | % Immature | 0.5 (H)Comment: | 0.0 - 0.4 % | [facility] | | | Granulocyte | Preliminary studies have | | [facility] | | | s | indicated the IG% | | MEDICAL | | | | and/or IG# show promise | | CENTER - | | | | as an early indicator | | LABORATORY | | | | for infection. For | | | | | | patients, use | | | | | | the special reference | | | | | | ranges listed below. | | | | + + + + + + | Absolute | 3.38 | 1.80 - 8.50 | [facility] | | | Neutrophils | | K/uL | [facility] | | | | | | [facility] | | | | | | CENTER - | | | | | | LABORATORY | | + + + + + + | Absolute | 4.38 (H) | 0.60 - 3.20 | [facility] | | | Lymphocytes | | K/uL | [facility] | | | | | | [facility] | | | | | | CENTER - | | | | | | LABORATORY | | + + + + + + | Absolute | 0.61 | 0.00 - 1.00 | [facility] | | | Monocytes | | K/uL | [facility] | | | | | | [facility] | | | | | | CENTER - | | | | | | LABORATORY | | + + + + + + | Absolute | 0.16 | 0.00 - 0.40 | [facility] | | | Eosinophils | | K/uL | [facility] | | | | | | MEDICAL | | | | | | CENTER - | | | | | | LABORATORY | | + + + + + + | Absolute | 0.04 | 0.00 - 0.10 | [facility] | | | Basophils | | K/uL | [facility] | | | | | | MEDICAL | | | | | | CENTER - | | | | | | LABORATORY | | + + + + + + | Absolute | 0.04 (H)Comment: For | 0.00 - 0.03 | [facility] | | | Immature | patients, use | K/uL | [facility] | | | Granulocyte | the special reference | | MEDICAL | | | s | ranges listed below. | | CENTER - | | | | | | LABORATORY | | + + + + + + | % nRBC | 0 | 0 - 2 per 100 | [facility] | | | | | WBCs | [facility] | | | [facility] | | MEDICAL | | | | | | CENTER - | | | | | | LABORATORY | | + + + + + + | Absolute | 0.00 | 0.00 - 0.01 | [facility] | | | nRBC | | K/uL | [facility] | | | | | | MEDICAL | | | | | | CENTER - | | | | | | LABORATORY | | + + + + + + + + | Specimen | + + | Blood | + + + + + | Narrative | Performed At | + + + | IMMATURE GRANULOCYTES - For patients, use the following | [facility] | | reference ranges: Trim. Absolute (K/uL) Percentage (%) | [facility] | | 1st 0.003-0.091 K/uL 0.0-0.9% 2nd | [facility] | | 0.007-0.247 K/uL 0.1-2.0% 3rd 0.018-0.456 | - LABORATORY | | K/uL 0.1-2.0% | | + + + + + + + + | Performing | Address | City/State/Zipcode | Phone Number | | Organization | | | | + + + + + | [facility] | [address] | [place] | [phone] | | [facility] | | [address] | | | - LABORATORY | | | | + + + + + ECHO Complete (01/22/2019 2:04 PDT) + +--------+ + + + | Component | Value | Ref Range | Performed | Pathologist | | | | | At | Signature | + +--------+ + + + | Patient | 125 | | [facility] | | | Weight | | | | | | (lbs) | | | | | + +--------+ + + + | Patient | 5'7" | | [facility] | | | Height | | | | | + +--------+ + + + | LVIDd | 4.17 | cm | [facility] | | + +--------+ + + + | FS | 29 | % | [facility] | | + +--------+ + + + | LA volume | 34.16 | mL | [facility] | | + +--------+ + + + | Aortic arch | 2.11 | cm | [facility] | | + +--------+ + + + | AV mean | 3.31 | mmHg | [facility] | | | gradient | | | | | + +--------+ + + + | MV Area by | 4.29 | cm2 | [facility] | | | P 1/2 | | | | | | method | | | | | + +--------+ + + + | IVRT | 80.12 | msec | [facility] | | + +--------+ + + + | LVOT peak | 95.82 | cm/s | [facility] | | | donna | | | | | + +--------+ + + + | LVOT peak | 16.76 | cm | [facility] | | | VTI | | | | | + +--------+ + + + | AV VTI | 19.74 | cm | [facility] | | + +--------+ + + + | MV Pressure | 51.27 | msec | [facility] | | | 1/2 time | | | | | + +--------+ + + + | LA Volume | 21 | mL/m2 | [facility] | | | Index | | | | | + +--------+ + + + | AV LVOT | 3.76 | mmHg | [facility] | | | Peak | | | | | | Gradient | | | | | + +--------+ + + + | AV LVOT | 1.54 | mmHg | [facility] | | | Mean | | | | | | Gradient | | | | | + +--------+ + + + | LV | 7.21 | cm | [facility] | | | Diastolic | | | | | | Length 4C | | | | | + +--------+ + + + | LV Systolic | 8.21 | cm2 | [facility] | | | Area PSAX | | | | | + +--------+ + + + | LV | 56 | % | [facility] | | | Olivares's | | | | | | Biplane EF | | | | | + +--------+ + + + | AV | 78.73 | msec | [facility] | | | Acceleratio | | | | | | n Time | | | | | + +--------+ + + + | LV ED | 52.49 | ml | [facility] | | | Volume | | | | | | (Olivares's) | | | | | + +--------+ + + + | LV ED | 32 | ml/m2 | [facility] | | | Volume | | | | | | Index | | | | | + +--------+ + + + | LV ES | 13.34 | ml | [facility] | | | Volume | | | | | + +--------+ + + + | LVOT Mean | 55.16 | cm/s | [facility] | | | Velocity | | | | | + +--------+ + + + | MV A' | 9.39 | cm/s | [facility] | | | Septal | | | | | | Velocity | | | | | + +--------+ + + + | MV E' | 9.88 | cm/s | [facility] | | | Septal | | | | | | Velocity | | | | | + +--------+ + + + | MV | 351.37 | cm/s2 | [facility] | | | Deceleratio | | | | | | n [place] | | | | | + +--------+ + + + | MV | 190.62 | msec | [facility] | | | Deceleratio | | | | | | n Time | | | | | + +--------+ + + + | MV E/A | 0.84 | | [facility] | | | Ratio | | | | | + +--------+ + + + | MV Peak | 79.69 | cm/s | [facility] | | | A-Wave | | | | | + +--------+ + + + | MV Peak | 66.98 | cm/s | [facility] | | | E-Wave | | | | | + +--------+ + + + | AV Mean | 86.6 | cm/s | [facility] | | | Velocity | | | | | + +--------+ + + + | LA/Aorta | 1.07 | | [facility] | | | Ratio | | | | | + +--------+ + + + | LA Area | 12.11 | cm2 | [facility] | | + +--------+ + + + | MV E/E | 6.78 | | [facility] | | | SEPTAL | | | | | + +--------+ + + + | LA Major | 0.1974 | cm | [facility] | | + +--------+ + + + | LV ES | 8 | ml/m2 | [facility] | | | Volume | | | | | | Index | | | | | + +--------+ + + + | LV Area | 22.5 | cm2 | [facility] | | | Diastolic | | | | | + +--------+ + + + | Aortic Root | 2.68 | cm | [facility] | | | Diameter | | | | | + +--------+ + + + | IVS | 1.31 | cm | [facility] | | | Diastolic | | | | | | Thickness | | | | | | MM | | | | | + +--------+ + + + | LVPW | 0.84 | cm | [facility] | | | Diastolic | | | | | | Thickness | | | | | | MM | | | | | + +--------+ + + + | IVS | 1.6 | cm | [facility] | | | Systolic | | | | | | Thickness | | | | | | MM | | | | | + +--------+ + + + | LV Systolic | 2.96 | cm | [facility] | | | Diameter | | | | | | MM | | | | | + +--------+ + + + | LVPW | 1.1 | cm | [facility] | | | Systolic | | | | | | Thickness | | | | | | MM | | | | | + +--------+ + + + | AV Cusp | 1.84 | cm | [facility] | | | Seperation | | | | | | MM | | | | | + +--------+ + + + | LA Systolic | 2.87 | cm | [facility] | | | Diameter | | | | | | MM | | | | | + +--------+ + + + | LVEF-TTE | 70 | % | [facility] | | | TRANSTHORAC | | | | | | IC ECHO | | | | | + +--------+ + + + | RA PRESSURE | 3 | mmHg | [facility] | | + +--------+ + + + + + | Specimen | + + | | + + + + + | Narrative | Performed At | + + + | 1. Normal | [facility] | | left ventricular size, wall thickness and motion. Preserved left | | | ventricular systolic function. LVEF is 70%.2. Grade 1 left | | | ventricular diastolic dysfunction.3. Mildly thickened mitral valve | | | with a trace mitral valve regurgitation.4. A 0.7 x 0.7 x 1.0 cm | | | oscillating, mobile mass attached to the anterior tricuspid valve | | | leaflet. Findings suggests vegetation. No significant tricuspid | | | regurgitation noted.5. Normal right-sided pressure.6. Normal IVC | | | with normal respiratory collapse. | | + + + + +---------+ + + | Performing | Address | City/State/Zipcode | Phone Number | | Organization | | | | + +---------+ + + | [facility] | | | | + +---------+ + + Culture, Urine (01/22/2019 0:19 PDT) + + + + + + | Component | Value | Ref Range | Performed | Pathologist | | | | | At | Signature | + + + + + + | Culture | >100,000 CFU/ml Mixed | | [facility] | | | | Gram Positive | | [facility] | | | | FloraComment: Suggests | | MEDICAL | | | | contamination with | | CENTER - | | | | urogenital or skin | | LABORATORY | | | | ольга.No further work-up | | | | | | to follow. | | | | + + + + + + + + | Specimen | + + | Urine | + + + + + + + | Performing | Address | City/State/Zipcode | Phone Number | | Organization | | | | + + + + + | [facility] | [address] | [place] | [phone] | | [facility] | | [id number] | | | - LABORATORY | | | | + + + + + Urinalysis With Microscopic (01/22/2019 0:19 PDT) + + + + + + | Component | Value | Ref Range | Performed | Pathologist | | | | | At | Signature | + + + + + + | Color | Yellow | Light Yellow, | [facility] | | | | | Yellow, Straw | [facility] | | | | | | MEDICAL | | | | | | CENTER - | | | | | | LABORATORY | | + + + + + + | Clarity | Hazy (A) | Clear | [facility] | | | | | | [facility] | | | | | | MEDICAL | | | | | | CENTER - | | | | | | LABORATORY | | + + + + + + | pH, Urine | 5.0 | 5.0 - 8.0 | [facility] | | | | | | [facility] | | | | | | MEDICAL | | | | | | CENTER - | | | | | | LABORATORY | | + + + + + + | Specific | 1.027 | 1.001 - 1.030 | [facility] | | | [place] | | | [facility] | | | | | | MEDICAL | | | | | | CENTER - | | | | | | LABORATORY | | + + + + + + | Protein, | 30 mg/dL (A) | Negative | [facility] | | | Urine | | | [facility] | | | | | | MEDICAL | | | | | | CENTER - | | | | | | LABORATORY | | + + + + + + | Blood, | Negative | Negative | [facility] | | | Urine | | | [facility] | | | | | | MEDICAL | | | | | | CENTER - | | | | | | LABORATORY | | + + + + + + | Glucose, | Negative | Negative | [facility] | | | Urine | | | [facility] | | | | | | MEDICAL | | | | | | CENTER - | | | | | | LABORATORY | | + + + + + + | Ketones, | Trace (A) | Negative | [facility] | | | Urine | | | [facility] | | | | | | MEDICAL | | | | | | CENTER - | | | | | | LABORATORY | | + + + + + + | Bilirubin, | Negative | Negative | [facility] | | | Urine | | | [facility] | | | | | | MEDICAL | | | | | | CENTER - | | | | | | LABORATORY | | + + + + + + | Nitrite, | Negative | Negative | [facility] | | | Urine | | | [facility] | | | | | | MEDICAL | | | | | | CENTER - | | | | | | LABORATORY | | + + + + + + | Leukocyte | Negative | Negative | [facility] | | | Esterase, | | | [facility] | | | Urine | | | MEDICAL | | | | | | CENTER - | | | | | | LABORATORY | | + + + + + + | Urobilinoge | 2.0 mg/dL (A) | 0.2 mg/dL, 1.0 | [facility] | | | n, Urine | | mg/dL, Negative | [facility] | | | | | | MEDICAL | | | | | | CENTER - | | | | | | LABORATORY | | + + + + + + | WBC UA | 2-5 (A) | 0 - 2 /HPF | [facility] | | | | | | [facility] | | | | | | MEDICAL | | | | | | CENTER - | | | | | | LABORATORY | | + + + + + + | RBC UA | 5-10 (A) | 0 - 2 /HPF | [facility] | | | | | | [facility] | | | | | | MEDICAL | | | | | | CENTER - | | | | | | LABORATORY | | + + + + + + | SQUAMOUS | >100 (A) | 0 - 2 /LPF | [facility] | | | EPITHELIAL | | | [facility] | | | UA | | | MEDICAL | | | | | | CENTER - | | | | | | LABORATORY | | + + + + + + | BACTERIA UA | Negative | Negative /HPF | [facility] | | | | | | [facility] | | | | | | MEDICAL | | | | | | CENTER - | | | | | | LABORATORY | | + + + + + + | MUCUS UA | Present (A) | Negative /LPF | [facility] | | | | | | [facility] | | | | | | MEDICAL | | | | | | CENTER - | | | | | | LABORATORY | | + + + + + + | CALCIUM | Few (A) | None Seen /HPF | [facility] | | | OXALATE | | | [facility] | | | CRYSTALS UA | | | MEDICAL | | | | | | CENTER - | | | | | | LABORATORY | | + + + + + + | HYALINE | 2-5 (A) | 0 - 2 /LPF | [facility] | | | CASTS UA | | | [facility] | | | | | | MEDICAL | | | | | | CENTER - | | | | | | LABORATORY | | + + + + + + + + | Specimen | + + | Urine | + + + + + + + | Performing | Address | City/State/Zipcode | Phone Number | | Organization | | | | + + + + + | [facility] | [address] | [place] | [phone] | | [facility] | | [address] | | | - LABORATORY | | | | + + + + + XR Chest AP Portable (01/22/2019 0:15 PDT) + + | Specimen | + + | | + + + + + | Narrative | Performed At | + + + | CLINICAL INFORMATION: POST DIAGNOSIS TEST RE-EVALUATION. | [facility] | | COMPARISON: None available. FINDINGS: Portable frontal chest | | | radiograph Lungs: No focal airspace disease, pleural effusion, or | | | pneumothorax. Heart/mediastinum: Cardiac silhouette is of normal | | | size. Central pulmonary vasculature has a normal appearance. | | | Bones: No acute osseous abnormality appreciated. IMPRESSION - No | | | acute disease. Dictated and Signed by: Donal Shafer MD | | | Electronically signed: 01/22/2019 2:24 PM | | + + + + + | Procedure Note | + + | Negrito Gimenez Results In - 01/22/2019 1427 PDT | | CLINICAL INFORMATION: POST DIAGNOSIS TEST RE-EVALUATION. | | | | COMPARISON: None available. | | | | FINDINGS: | | Portable frontal chest radiograph | | | | Lungs: No focal airspace disease, pleural effusion, or pneumothorax. | | | | Heart/mediastinum: Cardiac silhouette is of normal size. Central pulmonary | | vasculature has a normal appearance. | | | | Bones: No acute osseous abnormality appreciated. | | | | IMPRESSION - No acute disease. | | | | Dictated and Signed by: Donal Shafer MD | | Electronically signed: 01/22/2019 2:24 PM | + + + +---------+ + + | Performing | Address | City/State/Zipcode | Phone Number | | Organization | | | | + +---------+ + + | [facility] | | | | + +---------+ + + Central Line (01/21/2019 23:53 PDT) + + + | Narrative | Performed At | + + + | Vladislav Montes MD 01/22/2019 2:59 Central Line | | | Date/Time: 01/22/2019 2:24 Performed by: Vladislav Montes MD | | | Authorized by: Vladislav Montes MD Consent: Consent | | | obtained: Verbal and emergent situation Consent given | | | by: Patient Risks discussed: Arterial puncture, incorrect | | | placement and bleeding Alternatives discussed: No treatment | | | Pre-procedure details: Hand hygiene: Hand hygiene performed | | | prior to insertion Sterile barrier technique: All elements of | | | maximal sterile technique followed Skin preparation: 2% | | | chlorhexidine Skin preparation agent: Skin preparation agent | | | completely dried prior to procedure Anesthesia: | | | Anesthesia method: Local infiltration Local | | | anesthetic: Lidocaine 1% WITH epi Procedure details: | | | Location: R internal jugular Site selection | | | rationale: Clean and compressible Patient position: Reverse | | | Trendelenburg Procedural supplies: Triple lumen Catheter | | | size: 7 Fr Landmarks identified: yes Ultrasound | | | guidance: yes Sterile ultrasound techniques: Sterile gel and | | | sterile probe covers were used Number of attempts: 1 | | | Successful placement: yes Post-procedure details: | | | Post-procedure: Dressing applied Assessment: Free fluid | | | flow and blood return through all ports Patient tolerance of | | | procedure: Tolerated well, no immediate complications | | + + + ECG 12 lead (01/21/2019 23:51 PDT) + + + + + + | Component | Value | Ref Range | Performed | Pathologist | | | | | At | Signature | + + + + + + | VENTRICULAR | 98 | BPM | [facility] | | | RATE EKG | | | | | + + + + + + | ATRIAL RATE | 98 | BPM | [facility] | | + + + + + + | P-R | 148 | ms | [facility] | | | INTERVAL | | | | | + + + + + + | QRS | 82 | ms | [facility] | | | DURATION | | | | | + + + + + + | Q-T | 348 | ms | [facility] | | | INTERVAL | | | | | + + + + + + | Q-T | 444 | ms | [facility] | | | INTERVAL | | | | | | (CORRECTED) | | | | | + + + + + + | P WAVE AXIS | 56 | degrees | [facility] | | + + + + + + | QRS AXIS | 59 | degrees | [facility] | | + + + + + + | T AXIS | 54 | degrees | [facility] | | + + + + + + | INTERPRETAT | Normal sinus | | [facility] | | | ION TEXT | rhythmNormal ECGNo | | | | | | previous ECGs | | | | | | availableConfirmed by | | | | | | SONYA ALANIZ MD ([id number]) | | | | | | on 01/22/2019 8:53:46 AM | | | | + + + + + + + + | Specimen | + + | | + + + + + | Narrative | Performed At | + + + | | | + + + + +---------+ + + | Performing | Address | City/State/Zipcode | Phone Number | | Organization | | | | + +---------+ + + | [facility] | | | | + +---------+ + + MRI Brain w wo Contrast (11/08/2018 22:15 PDT) + + | Specimen | + + | | + + + + + | Narrative | Performed At | + + + | External films for comparison only | [facility] | | | | | No results will be in the chart. | | + + + + +---------+ + + | Performing | Address | City/State/Zipcode | Phone Number | | Organization | | | | + +---------+ + + | [facility] | | | | + +---------+ + + MRI Venogram Head wo Contrast (11/08/2018 22:00 PDT) + + | Specimen | + + | | + + + + + | Narrative | Performed At | + + + | External films for comparison only | [facility] | | | | | No results will be in the chart. | | + + + + +---------+ + + | Performing | Address | City/State/Zipcode | Phone Number | | Organization | | | | + +---------+ + + | [facility] | | | | + +---------+ + + documented in this encounter Visit Diagnoses + + | Diagnosis | + + | Active intravenous drug use - Primary Other, mixed, or unspecified nondependent drug | | abuse, unspecified | + + | Fever in adult | + + | Acute bacterial endocarditis Acute and subacute bacterial endocarditis | + + | Elevated procalcitonin | + + | Elevated C-reactive protein Elevated C-reactive protein (CRP) | + + | SIRS (systemic inflammatory response syndrome) (HCC) Systemic inflammatory response | | syndrome, unspecified | + + | Heroin dependence (HCC) Opioid type dependence, unspecified | + + | Blurred vision Other specified visual disturbances | + + | Methamphetamine dependence (HCC) Amphetamine and other psychostimulant dependence, | | unspecified | + + documented in this encounter Admitting Diagnoses + + | Diagnosis | + + | Acute bacterial endocarditis Acute and subacute bacterial endocarditis | + + documented in this encounter Administered Medications + +--------+ +--------+------+------+ | Medication Order | MAR | Action | Dose | Rate | Site | | | Action | Date | | | | + +--------+ +--------+------+------+ | buPROPion (WELLBUTRIN XL) 24 hr | Given | 01/30/20 | 150 mg | | | | tablet 150 mg 150 mg, Oral, | | 19 8:10 | | | | | DAILY, First dose on Thu01/28/19 | | PDT | | | | | at 1745, Do not cut or crush., | | | | | | + +--------+ +--------+------+------+ +-------+ +--------+---+---+ | Given | 01/29/20 | 150 mg | | | | | 19 17:42 | | | | | | PDT | | | | +-------+ +--------+---+---+ +---+---+ | | | +---+---+ + +-------+ +--------+---+---+ | cloNIDine (CATAPRES) tablet 0.1 | Given | 01/24/20 | 0.1 mg | | | | mg 0.1 mg, Oral, ONCE, Sun | | 19 5:00 | | | | | 01/23/19 at 0500, For 1 dose | | PDT | | | | + +-------+ +--------+---+---+ +---+---+ | | | +---+---+ + +---------+ +--------+-------+---+ | DAPTOmycin (CUBICIN) 400 mg in | New Bag | 01/30/20 | 400 mg | 116 | | | sodium chloride 0.9% 50 mL IVPB | | 19 11:34 | | mL/hr | | | 400 mg (rounded from 340.2 mg = 6 | | PDT | | | | | mg/kg | | | | | | | 56.7 kg), Intravenous, | | | | | | | Administer over 30 Minutes, EVERY | | | | | | | 24 HOURS INTERVAL, First dose on | | | | | | | 01/28/19 at 1130, | | | | | | | Indications: Bacterial | | | | | | | Endocarditis | | | | | | + +---------+ +--------+-------+---+ +---------+ +--------+-------+---+ | New Bag | 01/29/20 | 400 mg | 116 | | | | 19 12:14 | | mL/hr | | | | PDT | | | | +---------+ +--------+-------+---+ +---+---+ | | | +---+---+ + +-------+ +--------+---+ + | heparin 5,000 units/mL | Given | 01/30/20 | 5,000 | | Abdomen- | | injection 5,000 Units 5,000 | | 19 8:10 | Units | | LLQ | | Units, Subcutaneous, EVERY 12 | | PDT | | | | | HOURS (2 times per day), First | | | | | | | dose on 01/23/19 at 0900 | | | | | | + +-------+ +--------+---+ + +-------+ +--------+---+ + | Given | 01/29/20 | 5,000 | | Abdomen- | | | 19 20:07 | Units | | RLQ | | | PDT | | | | +-------+ +--------+---+ + | Given | 01/29/20 | 5,000 | | Abdomen- | | | 19 8:22 | Units | | RLQ | | | PDT | | | | +-------+ +--------+---+ + +---+---+ | | | +---+---+ + +-------+ +--------+---+---+ | iohexol (OMNIPAQUE 350) 350 | Given | 01/27/20 | 85 mLs | | | | mg/mL injection 85 mL 85 mL, | | 19 13:29 | | | | | Intravenous, ONCE PRN, Other, for | | PDT | | | | | CT contrast study, Starting Wed | | | | | | | 9/18/19 at 1329, For 1 dose, | | | | | | | Radiology | | | | | | + +-------+ +--------+---+---+ +---+---+ | | | +---+---+ + +-------+ +------+---+---+ | LORazepam (ATIVAN) injection 1 | Given | 01/25/20 | 1 mg | | | | mg 1 mg, Intravenous, EVERY 4 | | 19 17:40 | | | | | HOURS PRN, Anxiety, Starting Sat | | PDT | | | | | 01/22/19 at 0521 | | | | | | + +-------+ +------+---+---+ +-------+ +------+---+---+ | Given | 01/25/20 | 1 mg | | | | | 19 2:27 | | | | | | PDT | | | | +-------+ +------+---+---+ | Given | 01/23/20 | 1 mg | | | | | 19 19:49 | | | | | | PDT | | | | +-------+ +------+---+---+ +---+---+ | | | +---+---+ + +-------+ +------+---+ + | LORazepam (ATIVAN) injection 2 | Given | 01/23/20 | 2 mg | | Glut-Rig | | mg 2 mg, Intramuscular, ONCE, | | 19 0:58 | | | ht | | 01/22/19 at 0100, For 1 dose | | PDT | | | | + +-------+ +------+---+ + +---+---+ | | | +---+---+ + +-------+ +------+---+---+ | LORazepam (ATIVAN) tablet 1 mg | Given | 01/29/20 | 1 mg | | | | 1 mg, Oral, EVERY 4 HOURS PRN, | | 19 12:13 | | | | | Anxiety, Starting 01/25/19 at | | PDT | | | | | 1047 | | | | | | + +-------+ +------+---+---+ +-------+ +------+---+---+ | Given | 01/29/20 | 1 mg | | | | | 19 4:30 | | | | | | PDT | | | | +-------+ +------+---+---+ | Given | 01/28/20 | 1 mg | | | | | 19 15:40 | | | | | | PDT | | | | +-------+ +------+---+---+ +---+---+ | | | +---+---+ + +-------+ +------+---+---+ | LORazepam (ATIVAN) tablet 1-2 | Given | 01/30/20 | 1 mg | | | | mg 1-2 mg, Oral, EVERY 4 HOURS | | 19 12:04 | | | | | PRN, Anxiety, Starting Fri | | PDT | | | | | 01/28/19 at 1632 | | | | | | + +-------+ +------+---+---+ +-------+ +------+---+---+ | Given | 01/30/20 | 1 mg | | | | | 19 8:10 | | | | | | PDT | | | | +-------+ +------+---+---+ | Given | 01/30/20 | 1 mg | | | | | 19 2:36 | | | | | | PDT | | | | +-------+ +------+---+---+ +---+---+ | | | +---+---+ + +-------+ +-------+---+---+ | methadone tablet 10 mg 10 mg, | Given | 01/26/20 | 10 mg | | | | Oral, EVERY 12 HOURS (2 times per | | 19 21:14 | | | | | day), First dose on Thu01/25/19 | | PDT | | | | | at 2100 | | | | | | + +-------+ +-------+---+---+ +---+---+ | | | +---+---+ + +-------+ +-------+---+---+ | methadone tablet 15 mg 15 mg, | Given | 01/23/20 | 15 mg | | | | Oral, ONCE, 01/22/19 at 0330, | | 19 3:35 | | | | | For 1 dose | | PDT | | | | + +-------+ +-------+---+---+ +---+---+ | | | +---+---+ + +-------+ +-------+---+---+ | methadone tablet 15 mg 15 mg, | Given | 01/23/20 | 15 mg | | | | Oral, ONCE, 01/22/19 at 2030, | | 19 20:38 | | | | | For 1 dose | | PDT | | | | + +-------+ +-------+---+---+ +---+---+ | | | +---+---+ + +-------+ +-------+---+---+ | methadone tablet 15 mg 15 mg, | Given | 01/26/20 | 15 mg | | | | Oral, EVERY 12 HOURS (2 times per | | 19 8:56 | | | | | day), First dose on 01/23/19 | | PDT | | | | | at 1030 | | | | | | + +-------+ +-------+---+---+ +-------+ +-------+---+---+ | Given | 01/25/20 | 15 mg | | | | | 19 20:38 | | | | | | PDT | | | | +-------+ +-------+---+---+ | Given | 01/25/20 | 15 mg | | | | | 19 9:01 | | | | | | PDT | | | | +-------+ +-------+---+---+ +---+---+ | | | +---+---+ + +-------+ +------+---+---+ | methadone tablet 5 mg 5 mg, | Given | 01/28/20 | 5 mg | | | | Oral, EVERY 12 HOURS (2 times per | | 19 9:16 | | | | | ), First dose on Thu01/27/19 | | PDT | | | | | at 0915 | | | | | | + +-------+ +------+---+---+ +---+---+ | | | +---+---+ + +-------+ +------+---+---+ | methadone tablet 5 mg 5 mg, | Given | 01/30/20 | 5 mg | | | | Oral, EVERY 12 HOURS (2 times per | | 19 8:10 | | | | | day), First dose on Wilma 01/27/19 | | PDT | | | | | at 2100 | | | | | | + +-------+ +------+---+---+ +-------+ +------+---+---+ | Given | 01/29/20 | 5 mg | | | | | 19 20:07 | | | | | | PDT | | | | +-------+ +------+---+---+ | Given | 01/29/20 | 5 mg | | | | | 19 8:22 | | | | | | PDT | | | | +-------+ +------+---+---+ +---+---+ | | | +---+---+ + +---------+ +---------+---+ + | nicotine (NICODERM) 21 mg/24 hr | Patch | 01/29/20 | 1 patch | | Arm-Earnest | | 1 patch 1 patch, Transdermal, | Applied | 19 17:06 | | | t Upper | | DAILY PRN, Nicotine Craving, | | PDT | | | | | Starting 01/22/19 at 0551 | | | | | | + +---------+ +---------+---+ + + + +---------+---+ + | Patch Applied | 01/28/20 | 1 patch | | Arm-Righ | | | 19 15:40 | | | t Upper | | | PDT | | | | + + +---------+---+ + | Patch Applied | 01/27/20 | 1 patch | | Arm-Left | | | 19 6:13 | | | Upper | | | PDT | | | | + + +---------+---+ + + +---+ | | | + +---+ | nicotine polacrilex (COMMIT) | | | lozenge 2 mg 2 mg, Oral, PRN, | | | Nicotine Craving, Starting Tue | | | 01/25/19 at 1457, Do not exceed 20 | | | lozenges in 24 hours, | | + +---+ | | | + +---+ + +---------+ +--------+-------+---+ | potassium chloride 40 mEq in | New Bag | 01/23/20 | 40 mEq | 130 | | | sodium chloride 0.45% 500 mL IVPB | | 19 15:40 | | mL/hr | | | 40 mEq, Intravenous, Administer | | PDT | | | | | over 4 Hours, ONCE, 01/22/19 | | | | | | | at 1530, For 1 dose | | | | | | + +---------+ +--------+-------+---+ +---+---+ | | | +---+---+ + +------+ +--------+-------+---+ | sodium chloride 0.9% (NS) bolus | Push | 01/27/20 | 20 mLs | 1200 | | | 20 mL 20 mL, Intravenous, | | 19 13:29 | | mL/hr | | | Administer over 1 Minutes, ONCE | | PDT | | | | | PRN, for CT contrast study, | | | | | | | Starting 01/26/19 at 1329, For | | | | | | | 1 dose, Radiology | | | | | | + +------+ +--------+-------+---+ +---+---+ | | | +---+---+ + +---------+ +-----+--------+---+ | vancomycin 1 g in sodium | New Bag | 01/23/20 | 1 g | 166.7 | | | chloride 0.9% 250 mL IVPB 1 g, | | 19 19:49 | | mL/hr | | | Intravenous, Administer over 90 | | PDT | | | | | Minutes, EVERY 8 HOURS INTERVAL, | | | | | | | First dose on 01/22/19 at | | | | | | | 1100, Activate system and mix | | | | | | | before use., Indications: | | | | | | | Bacteremia | | | | | | + +---------+ +-----+--------+---+ +---------+ +-----+--------+---+ | New Bag | 01/23/20 | 1 g | 166.7 | | | | 19 11:09 | | mL/hr | | | | PDT | | | | +---------+ +-----+--------+---+ +---+---+ | | | +---+---+ + + + +-----+--------+---+ | vancomycin 1 g in sodium | Restarte | 01/29/20 | 1 g | 166.7 | | | chloride 0.9% 250 mL IVPB 1 g, | d | 19 10:17 | | mL/hr | | | Intravenous, Administer over 90 | | PDT | | | | | Minutes, EVERY 8 HOURS INTERVAL, | | | | | | | First dose on Thu01/25/19 at | | | | | | | 0900, Activate system and mix | | | | | | | before use., Indications: | | | | | | | Bacteremia | | | | | | + + + +-----+--------+---+ +---------+ +-----+--------+---+ | New Bag | 01/29/20 | 1 g | 166.7 | | | | 19 1:09 | | mL/hr | | | | PDT | | | | +---------+ +-----+--------+---+ | New Bag | 01/28/20 | 1 g | 166.7 | | | | 19 16:43 | | mL/hr | | | | PDT | | | | +---------+ +-----+--------+---+ +---+---+ | | | +---+---+ + +---------+ + +--------+---+ | vancomycin 1,250 mg in sodium | New Bag | 01/23/20 | 1,250 mg | 166.7 | | | chloride 0.9% 250 mL IVPB 1,250 | | 19 3:16 | | mL/hr | | | mg (rounded from 1,134 mg = 20 | | PDT | | | | | mg/kg | | | | | | | 56.7 kg), Intravenous, | | | | | | | Administer over 90 Minutes, ONCE, | | | | | | | 01/22/19 at 0310, For 1 dose, | | | | | | | Keep in refrigerator., | | | | | | | Indications: Sepsis of Unknown | | | | | | | Etiology | | | | | | + +---------+ + +--------+---+ +---+---+ | | | +---+---+ + +---------+ + +-------+---+ | vancomycin 1,250 mg in sodium | New Bag | 01/25/20 | 1,250 mg | 175 | | | chloride 0.9% 250 mL IVPB 1,250 | | 19 20:44 | | mL/hr | | | mg, Intravenous, Administer over | | PDT | | | | | 90 Minutes, EVERY 8 HOURS | | | | | | | INTERVAL, First dose on Sun | | | | | | | 01/23/19 at 0330, Keep in | | | | | | | refrigerator., Indications: | | | | | | | Bacteremia | | | | | | + +---------+ + +-------+---+ +---------+ + +-------+---+ | New Bag | 01/25/20 | 1,250 mg | 175 | | | | 19 11:50 | | mL/hr | | | | PDT | | | | +---------+ + +-------+---+ | New Bag | 01/25/20 | 1,250 mg | 175 | | | | 19 3:52 | | mL/hr | | | | PDT | | | | +---------+ + +-------+---+ +---+---+ | | | +---+---+ documented in this encounter
--- OUTSIDE RECORDS SUMMARY | ~2019-01-31 | XMS | Encounter Summary ---
Demographics + + + | Address | [address] | | | [place] [address] | + + + | Home Phone | | + + + | Preferred Language | Unknown | + + + | Marital Status | Single | + + + | Pentecostalism Affiliation | NON | + + + | Race | White | + + + | Ethnic Group | Not or | + + + Author + + + | Author | [facility] | + + + | Organization | [facility] | + + + | Address | Unknown | + + + | Phone | Unavailable | + + + Care Team Providers + +------+ + | Care Nurse Sane Name | Role | Phone | + +------+ + PCP | Unavailable | + +------+ + Reason for Visit AUTH/CERT +--------+--------+ + + + + | Status | Reason | Specialty | Diagnoses / | Referred By | Referred To | | | | | Procedures | Contact | Contact | +--------+--------+ + + + + | | | | | | | +--------+--------+ + + + + Encounter Details +--------+ + + + + | Date | Type | Department | Care Team | Description | +--------+ + + + + | 08/09/ | Hospital | [facility] [address] | [facility] Sharma | | | 2019 | Encounter | [facility] [address] Josh Monroe DO [address] [facility] [facility] | | | | | [id number] | [address] | | | | | [place], | [place], [place] | | | | | [place] [address] | [address] | | | | | [phone] | [phone] | | | | | | | | +--------+ + + + [...] filedocumented as of this encounter Visit Diagnoses + + | Diagnosis | + + | Cerebral edema (HCC) - Primary Cerebral edema | + + documented in this encounter"
--- OUTSIDE RECORDS SUMMARY | ~2019-01-31 | XMS | Clinical Summary ---
Demographics + + + | Address | [address] | | | [place] [address] | + + + | Home Phone | | + + + | Preferred Language | Unknown | + + + | Marital Status | Single | + + + | Islam Affiliation | Unknown | + + + | Race | Unknown | + + + | Ethnic Group | Unknown | + + + Author + + + | Author | [facility] | | | and Romarioana | + + + | Organization | [facility] | | | [...] [place] | | | | | [place] | | | | | [address] | | + + + + + Care Team Providers + +------+ + | Care Business Support Specialist Name | Role | Phone | + +------+ + | Dada Silver | PCP | | + +------+ + Allergies No Known Allergies Medications + + + +---------+------+------+-------+ | Medication | Sig | Dispensed | Refills | Star | End | Statu | | | | | | t | Date | s | | | | | | Date | | | + + + +---------+------+------+-------+ | buprenorphine | Place 4 mg under the | | 0 | | | Activ | | (SUBUTEX) 8 mg SUBL | tongue Daily. | | | | | e | + + + +---------+------+------+-------+ | DAPTOmycin | Inject 400 mg into | 20 each | 0 | 09/2 | | Activ | | (CUBICIN) IVPB 6 | the vein every 24 | | | 2/20 | | e | | mg/kg = 400 | hours. Indications: | | | 19 | | | | mgIndications: | Bacterial | | | | | | | Bacterial | Endocarditis | | | | | | | Endocarditis | | | | | | | + + + +---------+------+------+-------+ | LORazepam (ATIVAN) | Take 1 tablet by | 6 | 0 | 09/2 | | Activ | | 1 mg tablet | mouth every 8 hours | tablet | | 1/20 | | e | | | as needed for | | | 19 | | | | | Anxiety or | | | | | | | | Withdrawal Symptoms. | | | | | | + + + +---------+------+------+-------+ | DAPTOmycin | Inject 400 mg into | 21 each | 0 | 09/2 | 09/2 | Disco | | (CUBICIN) IVPB 6 | the vein every 24 | | | 0/20 | 0/20 | ntinu | | mg/kg = 400 | hours. Indications: | | | 19 | 19 | ed | | mgIndications: | Bacterial | | | | | | | Bacterial | Endocarditis | | | | | | | Endocarditis | | | | | | | + + + +---------+------+------+-------+ | DAPTOmycin | Inject 400 mg into | 21 each | 0 | 09/2 | 09/2 | Disco | | (CUBICIN) IVPB 6 | the vein every 24 | | | 0/20 | 1/20 | ntinu | | mg/kg = 400 | hours. Indications: | | | 19 | 19 | ed | | mgIndications: | Bacterial | | | | | | | Bacterial | Endocarditis | | | | | | | Endocarditis | | | | | | | + + + +---------+------+------+-------+ | DAPTOmycin | Inject 400 mg into | 20 each | 0 | 09/2 | 09/2 | Disco | | (CUBICIN) IVPB 6 | the vein every 24 | | | 2/20 | 1/20 | ntinu | | mg/kg = 400 | hours. Indications: | | | 19 | 19 | ed | | mgIndications: | Bacterial | | | | | | | Bacterial | Endocarditis | | | | | | | Endocarditis | | | | | | | + + + +---------+------+------+-------+ Active Problems + + + | Problem | Noted Date | + + + | Acute bacterial endocarditis | 01/25/2019 | + + + | Blurred vision | 01/25/2019 | + + + | SIRS (systemic inflammatory response syndrome) | 01/22/2019 | + + + | Heroin dependence | 01/22/2019 | + + + | Methamphetamine dependence | 01/22/2019 | + + + Encounters +--------+ + + + + | Date | Type | Specialty | Care Team | Description | +--------+ + + + + | 01/25/ | Telephone | Neurology | Jd Henderson MD | Medication Refill | | 2018 | | | | | +--------+ + + + + | 01/21/ | Hospital | | Vladislav Montes, | Active intravenous | | 2018 - | Encounter | | Adam Yan, | drug use (Primary | | | | | Yoana Llamas, | Dx); Fever in adult; | | 01/29/ | | | MD | Acute bacterial | | 2018 | | | | endocarditis; | | | | | | Elevated | | | | | | procalcitonin; | | | | | | Elevated C-reactive | | | | | | protein; SIRS | | | | | | (systemic | | | | | | inflammatory | | | | | | response syndrome) | | | | | | (HCC); Heroin | | | | | | dependence (HCC); | | | | | | Blurred vision; | | | | | | Methamphetamine | | | | | | dependence (HCC) | +--------+ + + + + | 01/21/ | Emergency | Emergency Medicine | Vladislav Montes, | Severe frontal | | 2018 | | | MD | headaches (Primary | | | | | | Dx) | +--------+ + + + + | 01/21/ | [facility] | Emergency Medicine | Vladislav Montes, | | | 2018 | Encounter | | | | +--------+ + + + + | 11/08/ | Imaging | Radiology | Provider, | | | 2019 | Exam | | MD Danielle | | +--------+ + + + + | 11/08/ | Imaging | Radiology | Provider, | | | 2019 | Exam | | Danielle, MD | | +--------+ + + + + from Last 3 Months Immunizations + + + + | Name | Dates Previously Given | Next Due | + + + + | DTAP, 5 DOSE (PED) | 09/13/1996 | | + + + + | DTP (PED) | 12/10/1993, 12/11/1992, 02/28/1992, | | | | 1991 | | + + + + | HEP A, 2 DOSE | 07/25/2003 | | | (PED/ADOL) | | | + + + + | HIB HBOC CONJUGATE, | 12/11/1992, 02/28/1992, 1991 | | | 4 DOSE (PED) | | | + + + + | Hep B (PED/ADOL) 3 | 07/25/2003, 08/14/1998, 08/29/1997 | | | DOSE | | | + + + + | MMR, 2 DOSE | 08/29/1997, 12/11/1992 | | | (PED/ADULT) | | | + + + + | POLIOVIRUS,OPV | 09/13/1996, 12/11/1992, 02/28/1992, | | | (LIVE) | 1991 | | + + + + | TD PF (2 LF TETANUS) | 07/25/2003 | | | (ADOL/ADULT) | | | + + + + | TDAP, (ADOL/ADULT) | 10/22/2016, 09/20/2012, 11/23/2007 | | + + + + Social History + [...] recent travel history available. | + + Last Filed Vital Signs + + + [...] Weight | 56.7 kg (125 lb) | 01/22/2019545 PDT | + + + + | Height | 170.2 cm (5' 7") | 01/22/2019545 PDT | + + + + | Body Mass Index | 19.58 | 01/22/2019 0546 PDT | + + + + Plan of Treatment +--------+---------+ + + + | Date | Type | Specialty | Care Team | Description | +--------+---------+ + + + | 03/30/ | Office | Neurology | Jd Henderson MD | | | 2019 | Visit | | [address] | | | | | | [place] | | | | | | [address] | | | | | | | | +--------+---------+ + + + + + + + + | Health Maintenance | Due Date | Last Done | Comments | + + + + + | Cervical Cancer | | | | | Screening (Pap) | 2 | | | + + + + + | Vaccine: Influenza | | | | | (#1) | 9 | | | + + + + + | Vaccine: | | 10/22/2016, 09/20/2012, | | | Dtap/Tdap/Td (9 - | 7 | 11/23/2007, Additional history | | | Td) | | exists | | + + + + + Procedures + +--------+ + + + | [...] + | VANCOMYCIN, TROUGH | Timed | 01/25/2019 | | [...] | + +--------+ + + + | ED INFORMATION | Routin | 01/21/2019 | | | | EXCHANGE | e | 23:44 PDT | | | + +--------+ + + + +---+--------+ | | | | | Proced | | | ure | | | Note - | | | Pernell, | | | Lab In | | | | | | Hlseve | | | n - | | | | | | 2018 | | | 2345 | | | PDT | | | Format | | | ting | | | of | | | this | | | note | | | might | | | be | | | differ | | | ent | | | from | | | the | | | origin | | | al.COL | | | LECTIV | | | E?NOTI | | | FICATI | | | ON? | | | | | | 9 | | | 23:43? | | | GIL, | | | LUBA | | | L?MRN: | | | | | | [id number] | | | [id number] | | | riteri | | | a Met | | | Care | | | Guidel | | | inesSe | | | curity | | | and | | | Safety | | | Date | | | Locati | | | on | | | Type | | | Specif | | | ics | | | 12/1/1 | | | 8 8:37 | | | AM | | | [facility] [place] [facility] | [facility] | | | [facility] | | | al | | | [place] | | | ent | | | Other | | | | | | Detail | | | s: | | | PATIEN | | | T LEFT | | | W/OUT | | | | | | DISCHA | | | RGE | | | INSTRU | | | CTIONS | | | . | | | Securi | | | ty | | | Events | | | (18 | | | Mo.) | | | Count | | | Elopem | | | ent 1 | | | Total | | | 1 ED | | | Care | | | Guidel | | | inesTh | | | ere | | | are | | | curren | | | tly no | | | ED | | | Care | | | Guidel | | | jerardo | | | for | | | this | | | patien | | | t. | | | Please | | | check | | | your | | | facili | | | ty's | | | medica | | | l | | | record | | | s | | | system | | | .Care | | | Histor | | | yMedic | | | al/Patrick | | | [email or web address] | | | /12/19 | | | 12:00 | | | AM | | | [facility] [place] | | | y | | | Hospit | | | al | | | UMMDT | | | REFERR | | | AL | | | MADE- | | | DUE TO | | | | | | PATIEN | | | T | | | DECLIN | | | ING | | | SERVIC | | | ES/HEL | | | P FROM | | | | | | [facility]. | | | // | | | 9 | | | 12:00 | | | AM | | | [facility] [place] | | | y | | | Hospit | | | al | | | PATIEN | | | T | | | DECLIN | | | ED | | | [facility] | | | CASE | | | MANAGE | | | MENT | | | ASSIST | | | ANCE. | | | | | | PLEASE | | | | | | CONTAC | | | T | | | UMATIL | | | LA | | | AandD | | | SERVIC | | | ES IF | | | PATIEN | | | T IS | | | WILLIN | | | G TO | | | ACCEPT | | | HELP | | | [phone] | | | [phone] | | | .6/26/ | | | 19 | | | 12:00 | | | AM | | | [facility] [place] | | | y | | | Hospit | | | al | | | [facility] | | | CASE | | | MANAGE | | | MENT | | | REFERR | | | AL | | | MADE- | | | DUE TO | | | | | | PATIEN | | | T | | | EOCCO | | | INSURA | | | NCE | | | AND | | | NOT | | | HAVING | | | A | | | PCP. | | | PATIEN | | | T HAS | | | HX OF | | | DRUG | | | USAGE, | | | | | | PATIEN | | | T | | | CURREN | | | TLY | | | WORKIN | | | G WITH | | | DR | | | YOLANDA | | | RICE.C | | | are | | | Recomm | | | endati | | | on: | | | USE | | | EXTREM | | | E | | | CAUTIO | | | N IN | | | GIVING | | | | | | NARCOT | | | ICS TO | | | THIS | | | PATIEN | | | T. | | | Avoid | | | Discha | | | rge | | | Narcot | | | ic | | | prescr | | | iption | | | s if | | | at all | | | | | | possib | | | le. | | | Physic | | | wade | | | discre | | | tion. | | | Prescr | | | iption | | | Drug | | | Report | | | (12 | | | Mo.)PD | | | MP | | | query | | | found | | | no | | | report | | | .E.D. | | | Visit | | | Count | | | (12 | | | mo.)Fa | | | cility | | | | | | Visits | | | Low | | | Acuity | | | St. | | | [facility] | | | [facility] | | | Medica | | | l | | | Center | | | -[place] | | | City | | | 2 0 | | | Provid | | | ence | | | St. | | | [place] | | | Medica | | | l | | | Center | | | 2 0 | | | [facility] [place] | | | y | | | Hospit | | | al 6 0 | | | Total | | | 10 0 | | | Note: | | | Visits | | | | | | indica | | | te | | | total | | | known | | | visits | | | . | | | Medica | | | id Low | | | | | | Acuity | | | Dx | | | are | | | the | | | number | | | of | | | primar | | | y | | | diagno | | | ses on | | | the | | | Medica | | | id's | | | Low | | | Acuity | | | dx | | | list. | | | | | | Recent | | | | | | Emerge | | | ncy | | | Depart | | | ment | | | Visit | | | [place] | | | yDate | | | Facili | | | ty | | | City | | | State | | | Type | | | Diagno | | | ses or | | | Chief | | | | | | Compla | | | int | | | Sep | | | 13, | | | 2019 | | | Provid | | | ence | | | [facility] | | | [facility] | [place] | | | [place] | | | Emerge | | | ncy | | | Sep | | | 13, | | | 2019 | | | Provid | | | ence | | | [facility] | | | [facility] [facility] | | | [place] | | | [place] | | | Emerge | | | ncy | | | | | | Headac | | | he; | | | Fever | | | | | | Headac | | | he | | | Sep | | | 10, | | | 2019 | | | [facility] [place] | | | [facility] | | | [place] | | | [place] | | | Emerge | | | ncy | | | | | | Allerg | | | y | | | status | | | to | | | analge | | | sic | | | agent | | | status | | | | | | Headac | | | he | | | Other | | | chroni | | | c pain | | | | | | Nicoti | | | ne | | | depend | | | ence, | | | unspec | | | ified, | | | | | | uncomp | | | licate | | | d | | | Opioid | | | abuse | | | with | | | intoxi | | | cation | | | , | | | unspec | | | ified | | | | | | Other | | | long | | | term | | | (curre | | | nt) | | | drug | | | therap | | | y | | | Other | | | stimul | | | ant | | | abuse, | | | | | | uncomp | | | licate | | | d Pete | | | 1, | | | 2019 | | | [facility] [place] | | | [facility]. | | | [place] | | | [place] | | | Emerge | | | ncy | | | Other | | | long | | | term | | | (curre | | | nt) | | | drug | | | therap | | | y | | | Fever, | | | | | | unspec | | | ified | | | | | | Allerg | | | y | | | status | | | to | | | other | | | drugs, | | | | | | medica | | | ments | | | and | | | biolog | | | ical | | | substa | | | nces | | | status | | | | | | Nicoti | | | ne | | | depend | | | ence, | | | unspec | | | ified, | | | | | | uncomp | | | licate | | | d | | | Headac | | | he | | | Enceph | | | alopat | | | hy, | | | unspec | | | ified | | | Adryan | | | 25, | | | 2019 | | | [facility] [place] | | | [facility]. | | | [place] | | | [place] | | | Emerge | | | ncy | | | | | | Allerg | | | y | | | status | | | to | | | other | | | drugs, | | | | | | medica | | | ments | | | and | | | biolog | | | ical | | | substa | | | nces | | | status | | | | | | Nicoti | | | ne | | | depend | | | ence, | | | unspec | | | ified, | | | | | | uncomp | | | licate | | | d | | | Nonspe | | | cific | | | low | | | blood- | | | pressu | | | re | | | readin | | | g | | | Nausea | | | Mar | | | 17, | | | 2019 | | | [facility] | | | [facility] | | | [facility] | | | [facility] | | | [place] | | | [place] | | | [place] | | | [place] | | | Emerge | | | ncy | | | 0. | | | LABS | | | Mar | | | 17, | | | 2019 | | | [facility] | | | [facility] | | | [facility] | | | [facility] | | | [place] | | | City | | | [place] | | | [place] | | | Emerge | | | ncy | | | 0. | | | RIGHT | | | HAND | | | SWELLI | | | NG | | | Dec | | | 31, | | | 2018 | | | [facility] [place] | | | y H. | | | [place] | | | [place] | | | Emerge | | | ncy | | | | | | Contus | | | ion of | | | right | | | hand, | | | | | | initia | | | l | | | encoun | | | ter | | | | | | Striki | | | ng | | | agains | | | t or | | | struck | | | by | | | other | | | object | | | s, | | | initia | | | l | | | encoun | | | ter | | | | | | Foreig | | | n body | | | in | | | stomac | | | h, | | | initia | | | l | | | encoun | | | ter | | | | | | Lacera | | | tion | | | withou | | | t | | | foreig | | | n body | | | of | | | right | | | wrist, | | | | | | initia | | | l | | | encoun | | | ter | | | | | | Allerg | | | y | | | status | | | to | | | narcot | | | ic | | | agent | | | status | | | | | | Nicoti | | | ne | | | depend | | | ence, | | | unspec | | | ified, | | | | | | uncomp | | | licate | | | d Dec | | | 1, | | | 2018 | | | [facility] [place] | | | [facility] | | | [place] | | | [place] | | | Emerge | | | ncy | | | | | | Allerg | | | y, | | | unspec | | | ified, | | | | | | initia | | | l | | | encoun | | | ter | | | | | | Nicoti | | | ne | | | depend | | | ence, | | | unspec | | | ified, | | | | | | uncomp | | | licate | | | d | | | Allerg | | | y | | | status | | | to | | | narcot | | | ic | | | agent | | | status | | | Nov | | | 9, | | | 2018 | | | [facility] [place] | | | [facility] | | | [place] | | | [place] | | | Emerge | | | ncy | | | | | | Amenor | | | tj, | | | unspec | | | ified | | | | | | Allerg | | | y | | | status | | | to | | | narcot | | | ic | | | agent | | | status | | | | | | Recent | | | | | | Inpati | | | ent | | | Visit | | | [facility] | | | yDate | | | Facili | | | ty | | | City | | | State | | | Type | | | Diagno | | | ses or | | | Chief | | | | | | Compla | | | int | | | Pete 1, | | | 2019 | | | Provid | | | ence | | | [place] | | | nd | | | [facility] | [place] 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 | | | [facility] | | | Medica | | | l | | | Center | | | | | | Emerge | | | ncy | | | Depart | | | ment | | | For | | | more | | | inform | | | ation | | | visit: | | | | | | https: | | | //secu | | | re.col | | | lectiv | | | emedic | | | al.com | | | /notif | | | [id number] | | | [email or web address] | | | [email or web address] | | | [id number] | | | [email or web address] | | | [id number] | | | [phone] | | | PLEASE | | | NOTE: | | | 1. | | | Any | | | care | | | recomm | | | endati | | | ons | | | and | | | other | | | clinic | | | al | | | inform | | | ation | | | are | | | provid | | | ed as | | | guidel | | | jerardo | | | or for | | | | | | histor | | | ical | | | purpos | | | es | | | only, | | | and | | | provid | | | ers | | | should | | | | | | exerci | | | se | | | their | | | own | | | clinic | | | al | | | judgme | | | nt | | | when | | | provid | | | ing | | | care. | | | 2. | | | You | | | may | | | only | | | use | | | this | | | inform | | | ation | | | for | | | purpos | | | es of | | | treatm | | | ent, | | | paymen | | | t or | | | health | | | care | | | operat | | | ions | | | activi | | | ties, | | | and | | | subjec | | | t to | | | the | | | limita | | | tions | | | of | | | applic | | | able | | | Collec | | | tive | | | Polici | | | es. | | | 3. | | | You | | | should | | | | | | consul | | | t | | | direct | | | ly | | | with | | | the | | | organi | | | zation | | | that | | | provid | | | ed a | | | care | | | guidel | | | ine or | | | other | | | | | | clinic | | | al | | | histor | | | y with | | | any | | | questi | | | ons | | | about | | | additi | | | onal | | | inform | | | ation | | | or | | | accura | | | cy or | | | comple | | | teness | | | of | | | inform | | | ation | | | provid | | | ed.? | | | 2019 | | | Colle[facility] | | | tive | | | Medica | | | l | | | Techn[employer] | | | logies | | | , Inc[employer] | | | - | | | [email or web address] | | | llecti | | | vemedi | | | juan [email or web address] | | | m | +---+--------+ + +--------+ +---+ + | EXTRA PATTERSON TOP TUBE | Routin | 01/21/2019 | | Results for this | | | e | 5:41 PDT | | procedure are in the | | | | | | results section. | + +--------+ +---+ + | C-REACTIVE PROTEIN | Routin | 01/21/2019 | | Results for this | | | e | 5:36 PDT | | procedure are in the | | | | | | results section. | + +--------+ +---+ + | PROCALCITONIN, SERUM | STAT | 01/21/2019 | | Results for this | | | | 5:36 PDT | | procedure are in the | | | | | | results section. | + +--------+ +---+ + | COMPREHENSIVE | STAT | 01/21/2019 | | Results for this | | METABOLIC PANEL | | 5:36 PDT | | procedure are in the | | | | | | results section. | + +--------+ +---+ + | CBC WITH | STAT | 01/21/2019 | | Results for this | | DIFFERENTIAL | | 5:36 PDT | | procedure are in the | | | | | | results section. | + +--------+ +---+ + | ED INFORMATION | Routin | 01/21/2019 | | | | EXCHANGE | e | 4:49 PDT | | | + +--------+ +---+ + +---+--------+ | | | | | Proced | | | ure | | | Note - | | | Pernell, | | | Lab In | | | | | | Hlseve | | | n - | | | 01/21/ | | | 2019 | | | 0450 | | | PDT | | | Format | | | ting | | | of | | | this | | | note | | | might | | | be | | | differ | | | ent | | | from | | | the | | | origin | | | al.COL | | | LECTIV | | | E?NOTI | | | FICATI | | | ON?09/ | | | | | | 9 | | | 04:48? | | | GIL, | | | LUBA | | | L?MRN: | | | | | | [id number] | | | [id number] | | | riteri | | | a Met | | | Care | | | Guidel | | | inesSe | | | curity | | | and | | | Safety | | | Date | | | Locati | | | on | | | Type | | | Specif | | | ics | | | | | | 8 8:37 | | | AM | | | [facility] [place] | | | y | | | Hospit | | | al | | | [place] | | | ent | | | Other | | | | | | Detail | | | s: | | | PATIEN | | | T LEFT | | | W/OUT | | | | | | DISCHA | | | RGE | | | INSTRU | | | CTIONS | | | . | | | Securi | | | ty | | | Events | | | (18 | | | Mo.) | | | Count | | | [place] | | | ent 1 | | | Total | | | 1 ED | | | Care | | | Guidel | | | inesTh | | | ere | | | are | | | curren | | | tly no | | | ED | | | Care | | | Guidel | | | jerardo | | | for | | | this | | | patien | | | t. | | | Please | | | check | | | your | | | facili | | | ty's | | | medica | | | l | | | record | | | s | | | system | | | .Care | | | Histor | | | yMedic | | | al/Patrick | | | [email or web address] | | | /12/19 | | | 12:00 | | | AM | | | [facility] [place] | | | y | | | Hospit | | | al | | | [facility] | | | REFERR | | | AL | | | MADE- | | | DUE TO | | | | | | PATIEN | | | T | | | DECLIN | | | ING | | | SERVIC | | | ES/HEL | | | P FROM | | | | | | [facility]. | | | 11/03/ | | | 9 | | | 12:00 | | | AM | | | [facility] [place] | | | [facility] | | | Hospit | | | al | | | PATIEN | | | T | | | DECLIN | | | ED | | | [facility] | | | CASE | | | MANAGE | | | MENT | | | ASSIST | | | ANCE. | | | | | | PLEASE | | | | | | CONTAC | | | T | | | UMATIL | | | LA | | | AandD | | | SERVIC | | | ES IF | | | PATIEN | | | T IS | | | WILLIN | | | G TO | | | ACCEPT | | | HELP | | | [phone] | | | [phone] | | | [phone] | | | 19 | | | 12:00 | | | AM | | | [facility] [place] [facility] | | | [facility] | | | al | | | [facility] | | | CASE | | | MANAGE | | | MENT | | | REFERR | | | AL | | | MADE- | | | DUE TO | | | | | | PATIEN | | | T | | | E[facility]CCO | | | INSURA | | | NCE | | | AND | | | NOT | | | HAVING | | | A | | | PCP. | | | PATIEN | | | T HAS | | | HX OF | | | DRUG | | | USAGE, | | | | | | PATIEN | | | T | | | CURREN | | | TLY | | | WORKIN | | | G WITH | | | DR | | | YOLANDA | | | RICE.C | | | are | | | Recomm | | | endati | | | on: | | | USE | | | EXTREM | | | E | | | CAUTIO | | | N IN | | | GIVING | | | | | | NARCOT | | | ICS TO | | | THIS | | | PATIEN | | | T. | | | Avoid | | | Discha | | | rge | | | Narcot | | | ic | | | prescr | | | iption | | | s if | | | at all | | | | | | possib | | | le. | | | Physic | | | wade | | | discre | | | tion. | | | Prescr | | | iption | | | Drug | | | Report | | | (12 | | | Mo.)PD | | | MP | | | query | | | found | | | no | | | report | | | .E.D. | | | Visit | | | Count | | | (12 | | | mo.)Fa | | | cility | | | | | | Visits | | | Low | | | [facility] | | | [facility] | | | [facility] | | | [facility] | | | [facility] | | | l | | | Center | | | -[place] | | | City | | | 2 0 | | | Provid | | | ence | | | [facility] | | | [place] | | | [facility] | | | l | | | Center | | | 1 0 | | | [facility] [place] | | | y | | | Hospit | | | al 6 0 | | | Total | | | 9 0 | | | Note: | | | Visits | | | | | | indica | | | te | | | total | | | known | | | visits | | | . | | | Medica | | | id Low | | | | | | Acuity | | | Dx | | | are | | | the | | | number | | | of | | | primar | | | y | | | diagno | | | ses on | | | the | | | Medica | | | id's | | | Low | | | Acuity | | | dx | | | list. | | | | | | Recent | | | | | | Emerge | | | ncy | | | Depart | | | ment | | | Visit | | | [place] | | | yDate | | | Facili | | | ty | | | City | | | State | | | Type | | | Diagno | | | ses or | | | Chief | | | | | | Compla | | | int | | | Sep | | | 13, | | | 2019 | | | Provid | | | ence | | | [facility] | | | [facility] | [place] | | | [place] | | | Emerge | | | ncy | | | | | | Headac | | | he; | | | Fever | | | Sep | | | 10, | | | 2019 | | | [facility] [place] | | | [facility] | | | [place] | | | [place] | | | Emerge | | | ncy | | | Chief | | | Compla | | | int: | | | [place] | | | Pete | | | 1, | | | 2019 | | | [facility] [place] | | | [facility] H. | | | [place] | | | [place] | | | Emerge | | | ncy | | | Other | | | long | | | term | | | (curre | | | nt) | | | drug | | | therap | | | y | | | Fever, | | | | | | unspec | | | ified | | | | | | Allerg | | | y | | | status | | | to | | | other | | | drugs, | | | | | | medica | | | ments | | | and | | | biolog | | | ical | | | substa | | | nces | | | status | | | | | | Nicoti | | | ne | | | depend | | | ence, | | | unspec | | | ified, | | | | | | uncomp | | | licate | | | d | | | Headac | | | he | | | Enceph | | | alopat | | | hy, | | | unspec | | | ified | | | Adryan | | | 25, | | | 2019 | | | [facility] [place] | | | [facility] H. | | | [place] | | | [place] | | | Emerge | | | ncy | | | | | | Allerg | | | y | | | status | | | to | | | other | | | drugs, | | | | | | medica | | | ments | | | and | | | biolog | | | ical | | | substa | | | nces | | | status | | | | | | Nicoti | | | ne | | | depend | | | ence, | | | unspec | | | ified, | | | | | | uncomp | | | licate | | | d | | | Nonspe | | | cific | | | low | | | blood- | | | pressu | | | re | | | readin | | | g | | | Nausea | | | Mar | | | 17, | | | 2019 | | | [facility] | | | [facility] | | | [facility] | | | [facility] | | | [place] | | | [place] | | | [place] | | | [place] | | | Emerge | | | ncy | | | 0. | | | LABS | | | Mar | | | 17, | | | 2019 | | | [facility] | | | [facility] | | | [facility] | | | [facility] | | | [place] | | | City | | | [place] | | | [place] | | | Emerge | | | ncy | | | 0. | | | RIGHT | | | HAND | | | SWELLI | | | NG | | | Dec | | | 31, | | | 2018 | | | [facility] | [facility] | [place] | | | [facility] | | | [place] | | | [place] | | | Emerge | | | ncy | | | | | | Contus | | | ion of | | | right | | | hand, | | | | | | initia | | | l | | | encoun | | | ter | | | | | | Striki | | | ng | | | agains | | | t or | | | struck | | | by | | | other | | | object | | | s, | | | initia | | | l | | | encoun | | | ter | | | | | | Foreig | | | n body | | | in | | | stomac | | | h, | | | initia | | | l | | | encoun | | | ter | | | | | | Lacera | | | tion | | | withou | | | t | | | foreig | | | n body | | | of | | | right | | | wrist, | | | | | | initia | | | l | | | encoun | | | ter | | | | | | Allerg | | | y | | | status | | | to | | | narcot | | | ic | | | agent | | | status | | | | | | Nicoti | | | ne | | | depend | | | ence, | | | unspec | | | ified, | | | | | | uncomp | | | licate | | | d Dec | | | 1, | | | 2018 | | | [facility] | [place] | | | [facility] | | | [place] | | | [place] | | | Emerge | | | ncy | | | | | | Allerg | | | y, | | | unspec | | | ified, | | | | | | initia | | | l | | | encoun | | | ter | | | | | | Nicoti | | | ne | | | depend | | | ence, | | | unspec | | | ified, | | | | | | uncomp | | | licate | | | d | | | Allerg | | | y | | | status | | | to | | | narcot | | | ic | | | agent | | | status | | | Nov | | | 9, | | | 2018 | | | [facility] | [facility] | [place] | | | [facility] | | | [place] | | | [place] | | | Emerge | | | ncy | | | | | | Amenor | | | tj, | | | unspec | | | ified | | | | | | Allerg | | | y | | | status | | | to | | | narcot | | | ic | | | agent | | | status | | | | | | Recent | | | | | | Inpati | | | ent | | | Visit | | | [facility] | | | yDate | | | Facili | | | ty | | | City | | | State | | | Type | | | Diagno | | | ses or | | | Chief | | | | | | Compla | | | int | | | Pete 1, | | | 2019 | | | [facility] | | en[facility] | | | [facility] | | [facility] | | [facility] 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 | [facility] | | | [facility] | | | | | | Emerge | | | ncy | | | Depart | | | ment | | | For | | | more | | | inform | | | ation | | | visit: | | | | | | https: | | | //secu | | | [email or web address] | | | lectiv | | | emedic | | | [email or web address] | | | /[email or web address] | | | [id number] | | | [id number] | | | [id number] | | | [id number] | | | [id number] | | | [id number] | | | 8c | | | PLEASE | | | NOTE: | | | 1. | | | Any | | | care | | | recomm | | | endati | | | ons | | | and | | | other | | | clinic | | | al | | | inform | | | ation | | | are | | | provid | | | ed as | | | guidel | | | jerardo | | | or for | | | | | | histor | | | ical | | | purpos | | | es | | | only, | | | and | | | provid | | | ers | | | should | | | | | | exerci | | | se | | | their | | | own | | | clinic | | | al | | | judgme | | | nt | | | when | | | provid | | | ing | | | care. | | | 2. | | | You | | | may | | | only | | | use | | | this | | | inform | | | ation | | | for | | | purpos | | | es of | | | treatm | | | ent, | | | paymen | | | t or | | | health | | | care | | | operat | | | ions | | | activi | | | ties, | | | and | | | subjec | | | t to | | | the | | | limita | | | tions | | | of | | | applic | | | able | | | Colle[facility] | | | tive | | | Polici | | | es. | | | 3. | | | You | | | should | | | | | | consul | | | t | | | direct | | | ly | | | with | | | the | | | organi | | | zation | | | that | | | provid | | | ed a | | | care | | | guidel | | | ine or | | | other | | | | | | clinic | | | al | | | histor | | | y with | | | any | | | questi | | | ons | | | about | | | additi | | | onal | | | inform | | | ation | | | or | | | accura | | | cy or | | | comple | | | teness | | | of | | | inform | | | ation | | | provid | | | ed.? | | | 2019 | | | [facility] | | | tive | | | Medica | | | l | | | Techn[employer] | | | logies | | | , Inc[employer] | | | - | | | [email or web address] | | | llecti | | | vemedi | | | juan [email or web address] | | | m | +---+--------+ + +--------+ +---+ + | LABS - EXTERNAL SCAN | | 01/19/2019 | | Results for this | | | | 0:00 PDT | | procedure are in the | | | | | | results section. | + +--------+ +---+ + | IMAGING REPORT - | | 01/18/2019 | | Results for this | | EXTERNAL SCAN | | 0:00 PDT | | procedure are in the | | | | | | results section. | + +--------+ +---+ + | MRI BRAIN W WO | Routin | 11/08/2018 | | Results for this | | CONTRAST | e | 22:15 PDT | | procedure are in the | | | | | | results section. | + +--------+ +---+ + | MRI VENOGRAM HEAD WO | Routin | 11/08/2018 | | Results for this | | CONTRAST | e | 22:00 PDT | | procedure are in the | | | | | | results section. | + +--------+ +---+ + from Last 3 Months Results CK Total (01/28/2019 13:02 PDT) + +-------+ + + + | Component | Value | Ref Range | Performed | Pathologist | | | | | At | Signature | + +-------+ + + + | CK TOTAL | 47 | 34 - 145 U/L | [facility] | | | | | [...] + | [facility] | [address] | [place] | [phone] | | [facility] | | [address] | | | - LABORATORY | | | | + + + + + Vancomycin, Trough (01/28/2019 8:24 PDT)Only the most recent of 6 results within the time period is included. + + + + + + | Component | Value | Ref Range | Performed | Pathologist | | | | | At | Signature | + + + + + + | Date of | | | [facility] | | | [facility] Dose | | | [facility] - | | | | | | LABORATORY | | + + + + + + | Time of | | | [facility] | | | Last Dose | | | [facility] | [facility] | | | [facility] | [facility] - | | | | | | LABORATORY | | + + + + + + | Vancomycin | 13.8 (H) | 5.0 - 10.0 | [facility] | | | Trough | | ug/mL | [facility] | | | | | | [facility] [...] ST. | [address] | [place] | [phone] | | [facility] | | [address] | | | - LABORATORY | | | | + + + + + Basic Metabolic Panel (01/28/2019 4:28 PDT)Only the most recent of 6 results within the ti ne period is included. + + + + + + | Component | Value | Ref Range | Performed | Pathologist | | | | | At | Signature | + + + + + + | Na | 140 | 136 - 145 | [facility] | | | | | mmol/L | [facility] | [facility] | | [facility] | [facility] | | | | | | CENTER - | | | | | | LABORATORY | | + + + + + + | K | 3.7 | 3.4 - 5.1 | [facility] | | | | | mmol/L | [facility] | | | | | | [facility]ICAL | | | | | | CENTER - | | | | | | LABORATORY | | + + + + + + | Cl | 104 | 98 - 107 mmol/L | [facility] | | | | | | [facility] | | [facility] | | | MEDICAL | | | | | | CENTER - | | | | | | LABORATORY | | + + + + + + | CO2 | 31 | 20 - 31 mmol/L | [facility] | | | | | | [facility] | | | | | | [facility]ICAL | | | | | | CENTER - | | | | | | LABORATORY | | + + + + + + | Anion Gap | 5 | 3 - 16 mmol/L | [facility] | | | | | | [facility] | | | | [facility] | [facility] | | | | | | CENTER - | | | | | | LABORATORY | | + + + + + + | Glucose | 120 (H) | 60 - 106 mg/dL | [facility] | | | | | | [facility] | | | | | | [facility]ICAL | | | | | | CENTER - | | | | | | LABORATORY | | + + + + + + | BUN | 9 | 9 - 23 mg/dL | [facility] | | | | | | [facility] | | [facility] | | | [facility] | | | | | | CENTER - | | | | | | LABORATORY | | + + + + + + | Creatinine | 0.50 (L) | 0.55 - 1.02 | [facility] | | | | | mg/dL | [facility] | [facility] | [facility] | [facility] | | | | | | C[facility] - | | | | | | LABORATORY | | + + + + + + | eGFR if not | >60Comment: GLOMERULAR | >=60 | [facility] | | | | FILTRATION | mL/min/1.73m2 | [facility] | | | [place] | RATE,ESTIMATED mL/min | | MEDICAL | | | | /1.60k0Tnuu than 60 | | CENTER - | [...] | | | | | mg/dL | [facility] | | | | | | MEDICAL | | | | | | CENTER - | | | | | | LABORATORY | | + + + + + + | BUN/Creatin | 18.0 | | [facility] | | | ine Ratio | | | [facility] | | | | | | MEDICAL [...] [address] | [place] | [phone] | | [facility] | | [address] | | | - LABORATORY | | | | + + + + + CBC no Differential (01/27/2019 4:09 PDT)Only the most recent of 5 results within the time period is included. + + + + + + | [...] | | | | | g/dL | [facility] | | | | | | MEDICAL [...] [facility] | | | | | | [facility] | [facility] | | | | | | [facility] - | | | | | | LABORATORY | | + + + + + + | MCH | 30.2 | 28.0 - 35.0 pg | [facility] | | | | | | [facility] | | | | | | MEDICAL | | | | | | CENTER - | | | | | | LABORATORY | | + + + + + + | MCHC | 32.8 | 32.0 - 36.0 | [facility] | | | | | g/dL | [facility] | | | | | | MEDICAL | | | | | | CENTER - | | | | | | LABORATORY | | + + + + + + | RDW-CV | 13.7 | <15.0 % | [facility] | | | | | | [facility] | | | [facility] | | MEDICAL | | | | | | CENTER - | | | | | | LABORATORY | | + + + + + + | RDW-SD | 46.7 (H) | 35.1 - 46.3 fL | [facility] | | | | | | [facility] | | | | | | MEDICAL | | | | | | CENTER - | | | | | | LABORATORY | | + + + + + + | Platelet | 301 | 140 - 440 K/uL | [facility] | | | Count | | | [facility] | | | | | | MEDICAL | | | | | | CENTER - | | | | | | LABORATORY | | + + + + + + | MPV | 9.3 | 6.5 - 12.4 fL | [facility] | | | | | | [facility] | | | | | | MEDICAL | | | | | | CENTER - | | | | | | LABORATORY | | + + + + + + | % nRBC | 0 | 0 - 2 per 100 | [facility] | | | | | WBCs | [facility] | | | | | | MEDICAL | | | | | | CENTER - | | | | | | LABORATORY | | + + + + + + | Absolute | 0.00 | 0.00 - 0.01 | [facility] | | | nRBC | | K/uL | [facility] | | | | | | MEDICAL [...] + | [facility] | [address] | [place] | [phone] | | [facility] | | [address] | | | - LABORATORY | | | | + + + + + CT Head w Contrast (01/26/2019 13:28 PDT) + + | Specimen | + + | | + + + + | Addenda | + + | Addendum by Favio Leung MD on 01/28/2019 9:19 Addendum: Brain MRI performed | | November 08, 2018 at [facility] is now available for | | [...] | | URINE | | | [facility] | | | | | | MEDICAL [...] + | [facility] | [address] | [place] | [phone] | | [facility] | | [address] | | | - LABORATORY | | | | + + + + + Procalcitonin (01/24/2019 2:30 PDT)Only the most recent of 3 results within the time perio d is included. + + + + + + | Component | Value | Ref Range | Performed | Pathologist | | | | | At | Signature | + + + + + + | Procalciton | 0.82 (H) | <=0.50 ng/mL | [facility] | | | in | | | [facility] | | | | | | MEDICAL | | | | | | CENTER - | | | | | | LABORATORY | | + + + + + + | Comment | Comment: < 0.50 | | [facility] | | | | ng/mL:Procalcitonin | | [facility] | | | | levels below 0.50 [...] ST[address] | [address] | [place] | [phone] | | [facility] | | [address] | | | - LABORATORY | | | | + + + + + XR Chest AP Portable (01/22/2019 3:13 PDT)Only the most recent of 2 results within the period is included. + + | Specimen | + + [...] + | Pernell, Rad Results In - 01/22/2019 1429 PDT | [...] | | | + +---------+ + + Troponin I (01/22/2019 2:15 PDT) + + + + + + | Component | Value | Ref Range | Performed | Pathologist | | | | | At | Signature | + + + + + + | Troponin I | 0.01Comment: | <0.06 ng/mL | [facility] | | | | Comment:Reference | | [facility] | | | | Ranges: 0.00-0.06 = [...] | | | | | | [employer] | | | | | [...] + | [facility] | [address] | [place] | [phone] | | [facility] | | [address] | | | - LABORATORY | | | | + + + + + Sedimentation Rate (01/22/2019 2:15 PDT) + +-------+ + + + | Component | Value | Ref Range | Performed | Pathologist | | | | | At | Signature | + +-------+ + + + | ESR | 8 | <20 mm/hr | [facility] | | | | | | [facility] | | | | | | MEDICAL [...] | + + + + + | [facility] | [address] | [place], [place] | [phone] | | [facility] | | [address] | | | - LABORATORY | | | | + + + + + Culture, Blood (01/22/2019 2:15 PDT)Only the most recent of 2 results within the time mark od is included. + + + + + + | Component | Value | Ref Range | Performed | Pathologist | | | | | At | Signature | + + + + + + | Culture | No growth after 5 days | | [facility] | | | | incubation. | | [facility] | | | [...] [address] | [place] | [phone] | | [facility] | | [address] | | | - LABORATORY | | [...] | | | | | | [facility] | | | | | | MEDICAL [...] + | [facility] | [address] | [place] | [phone] | | [facility] | | [address] | | | - LABORATORY | | [...] | Time | | seconds | [facility] | | | | | | MEDICAL [...] [address] | [place] | [phone] | | [facility] | | [address] | | | - LABORATORY | | | | + + + + + CBC with Differential (01/22/2019 2:15 PDT)Only the most recent of 2 results within the ti ne period is included. + + + + + + | Component | Value | Ref Range | Performed | Pathologist | | | | | At | Signature | + + + + + + | WBC | 8.6 | 4.0 - 11.0 K/uL | [facility] | | | | | | [facility] | | | | | | MEDICAL | | | | | | CENTER - | | | | | | LABORATORY | | + + + + + + | RBC | 4.03 | 3.70 - 5.20 | [facility] | | | | | M/uL | [facility] | | | | | | MEDICAL | | | | | | CENTER - | | | | | | LABORATORY | | + + + + + + | Hemoglobin | 12.2 | 11.5 - 16.0 | [facility] | | | | | g/dL | [facility] | | | | [...] | | | | | | [facility] | | | | | | MEDICAL | | | | | | CENTER - | | | | | | LABORATORY | | + + + + + + | MCH | 30.3 | 28.0 - 35.0 pg | [facility] | | | | | | [facility] | | | | | | MEDICAL | | | | | | CENTER - | | | | | | LABORATORY | | + + + + + + | MCHC | 33.8 | 32.0 - 36.0 | [facility] | | | | | g/dL | [facility] | | | | | | MEDICAL [...] | | | | | | [facility] | | | | | | MEDICAL | | | | | | CENTER - | | | | | | LABORATORY | | + + + + + + | Platelet | 280 | 140 - 440 K/uL | [facility] | | | Count | | | [facility] | | | | | | MEDICAL | | | | | | CENTER - | | | | | | LABORATORY | | + + + + + + | MPV | 9.7 | 6.5 - 12.4 fL | [facility] | | | | | | [facility] | | | | | | MEDICAL | | | | | | CENTER - | | | | | | LABORATORY | | + + + + + + | % | 39.1 (L) | 45.0 - 82.0 % | [facility] | | | Neutrophils | | | [facility] | | | | | | MEDICAL | | | | | | CENTER - | | | | | | LABORATORY | | + + + + + + | % | 50.9 (H) | 20.0 - 45.0 % | [facility] | | | Lymphocytes | | | [facility] | | | | | | MEDICAL | | | | | | CENTER - | | | | | | LABORATORY | | + + + + + + | % Monocytes | 7.1 | 4.0 - 12.0 % | [facility] | | | | | | [facility] | | | | | | MEDICAL | | | | | | CENTER - | | | | | | LABORATORY | | + + + + + + | % | 1.9 | 0.0 - 5.0 % | [facility] | | | Eosinophils | | | [facility] | | | | | | MEDICAL | | | | | | CENTER - | | | | | | LABORATORY | | + + + + + + | % Basophils | 0.5 | 0.0 - 1.0 % | [facility] | | | | | | [facility] | | | | | | MEDICAL | | | | | | CENTER - | | | | | | LABORATORY | | + + + + + + | % Immature | 0.5 (H)Comment: | 0.0 - 0.4 % | [facility] | | | Granulocyte | Preliminary studies have | | [facility] | | | s | indicated the [...] | | Neutrophils | | K/uL | [facility] | | | | | | MEDICAL | | | | | | CENTER - | | | | | | LABORATORY | | + + + + + + | Absolute | 4.38 (H) | 0.60 - 3.20 | [facility] | | | Lymphocytes | | K/uL | [facility] | | | | | | MEDICAL | | | | | | CENTER - | | | | | | LABORATORY | | + + + + + + | Absolute | 0.61 | 0.00 - 1.00 | [facility] | | | Monocytes | | K/uL | [facility] | | | | | | MEDICAL | | | | | | CENTER - | | | | | | LABORATORY | | + + + + + + | Absolute | 0.16 | 0.00 - 0.40 | [facility] | | | Eosinophils | | K/uL | [facility] | | | | | | MEDICAL | | | | | | CENTER - | | | | | | LABORATORY | | + + + + + + | Absolute | 0.04 | 0.00 - 0.10 | [facility] | | | Basophils | | K/uL | [facility] | | | | | | MEDICAL | | | | | | CENTER - | | | | | | LABORATORY | | + + + + + + | Absolute | 0.04 (H)Comment: For | 0.00 - 0.03 | [facility] | | | Immature | patients, use | K/uL | [facility] | | | Granulocyte | the special reference | | MEDICAL | | | s | ranges listed below. | | CENTER - | | | | | | LABORATORY | | + + + + + + | % nRBC | 0 | 0 - 2 per 100 | [facility] | | | | | WBCs | [facility] | | | | [...] ranges: Trim. Absolute (K/uL) Percentage (%) | [facility] | | 1st 0.003-0.091 K/uL 0.0-0.9% 2nd | [facility] | | 0.007-0.247 K/uL 0.1-2.0% 3rd 0.018-0.456 | - LABORATORY | | K/uL 0.1-2.0% | | + + + + + + + + | Performing | Address | City/State/Zipcode | Phone Number | | Organization | | | | + + + + + | [facility] | [address] | [place] | [phone] | | [facility] | | [address] | | | - LABORATORY | | | | + + + + + C-Reactive Protein (01/22/2019 2:15 PDT)Only the most recent of 2 results within the time period is included. + + + + + + | Component | Value | Ref Range | Performed | Pathologist | | | | | At | Signature | + + + + + + | CRP | 18.90 (H) | <10.00 mg/L | [facility] | | | | | | [facility] | | | | | | MEDICAL [...] | + + + + + | [facility] | [address] | [place] | [phone] | | [facility] | | [address] | | | - LABORATORY | | [...] [address] | [place] | [phone] | | [facility] | | [address] | | | - LABORATORY | | [...] | | | | | | [facility] | | | | | | MEDICAL [...] + | [facility] | [address] | [place] | [phone] | | [facility] | | [address] | | | - LABORATORY | | [...] | | | | mmol/L | [facility] | | | | | | MEDICAL [...] + | [facility] | [address] | [place] | [phone] | | [facility] | | [address] | | | - LABORATORY | | | | + + + + + Comprehensive Metabolic Panel (01/22/2019 2:15 PDT)Only the most recent of 2 results withi n the time period is included. + + + + + + | Component | Value | Ref Range | Performed | Pathologist | | | | | At | Signature | + + + + + + | Na | 141 | 136 - 145 | [facility] | | | | | mmol/L | [facility] | | | | | | MEDICAL | | | | | | CENTER - | | | | | | LABORATORY | | + + + + + + | K | 2.9 (L) | 3.4 - 5.1 | [facility] | | | | | mmol/L | [facility] | | | | | | MEDICAL | | | | | | CENTER - | | | | | | LABORATORY | | + + + + + + | Cl | 107 | 98 - 107 mmol/L | [facility] | | | | | | [facility] | | | | | | MEDICAL | | | | | | CENTER - | | | | | | LABORATORY | | + + + + + + | CO2 | 25 | 20 - 31 mmol/L | [facility] | | | | | | [facility] | | | | | | MEDICAL [...] | | | | | | [facility] | | | | | | MEDICAL | | | | | | CENTER - | | | | | | LABORATORY | | + + + + + + | BUN | 12 | 9 - 23 mg/dL | [facility] | | | | | | [facility] | | | | | | MEDICAL | | | | | | CENTER - | | | | | | LABORATORY | | + + + + + + | Creatinine | 0.69 | 0.55 - 1.02 | [facility] | | | | | mg/dL | [facility] | | | | | | MEDICAL | | | | | | CENTER - | | | | | | LABORATORY | | + + + + + + | eGFR if not | >60Comment: GLOMERULAR | >=60 | [facility] | | | | FILTRATION | mL/min/1.73m2 | [facility] | | | [place] | RATE,ESTIMATED mL/min | | MEDICAL | | | | /1.14c3Eiob than 60 | | CENTER - | [...] 4.0 | 3.2 - 4.8 g/dL | [facility] | | | | | | [facility] | | | | | | MEDICAL | | | | | | CENTER - | | | | | | LABORATORY | | + + + + + + | Bilirubin | 0.3 | 0.3 - 1.2 mg/dL | [facility] | | | Total | | | [facility] | | | | | | MEDICAL | | | | | | CENTER - | | | | | | LABORATORY | | + + + + + + | Total | 6.3 | 5.7 - 8.2 g/dL | [facility] | | | Protein | | | [facility] | | | | | | MEDICAL | | | | | | CENTER - | | | | | | LABORATORY | | + + + + + + | AST | 32 | 0 - 34 U/L | [facility] | | | | | | [facility] | | | | | | MEDICAL | | | | | | CENTER - | | | | | | LABORATORY | | + + + + + + | ALT | 17 | 10 - 49 U/L | [facility] | | | | | | [facility] | | | | | | MEDICAL | | | | | | CENTER - | | | | | | LABORATORY | | + + + + + + | Alkaline | 68 | 46 - 116 U/L | [facility] | | | Phosphatase | | | [facility] | | | | | | [facility] | | | | | | CENTER - | | | | | | LABORATORY | | + + + + + + | Globulin | 2.3 | 2.1 - 3.8 g/dL | [facility] | | | | | | [facility] | | | | | | [facility] | | | | | | CENTER - | | | | | | LABORATORY | | + + + + + + | Albumin/Delia | 1.7 | 0.8 - 1.9 | [facility] | | | bulin Ratio | | | [facility] | | | | | | [facility] | | | | | | CENTER - | | | | | | LABORATORY | | + + + + + + | BUN/Creatin | 17.4 | | [facility] | | | ine Ratio | | | [facility] | | | | | | MEDICAL [...] [address] | [place] | [phone] | | [facility] | | [id number] | | | - LABORATORY | | [...] | | | | | | n [place] | | | | | + +--------+ [...] | | | + +---------+ + + Urinalysis With Microscopic (01/22/2019 0:19 PDT) + + + + + + | Component | Value | Ref Range | Performed | Pathologist | | | | | At | Signature | + + + + + + | Color | Yellow | Light Yellow, | [facility] | | | | | Yellow, Straw | [facility] | | | | | | [facility] | | | | | | CENTER - | | | | | | LABORATORY | | + + + + + + | Clarity | Veena (A) | Clear | [facility] | | | | | | [facility] | | | | | | [facility] | | | | | | [facility] - | | | | | | LABORATORY | | + + + + + + | pH, Urine | 5.0 | 5.0 - 8.0 | [facility] | | | | | | [facility] | | | | | | [facility] | | | | | | [facility] - | | | | | | LABORATORY | | + + + + + + | Specific | 1.027 | 1.001 - 1.030 | [facility] | | | [place] | | | [facility] | | | | | | [facility] | | | | | | CENTER - | | | | | | LABORATORY | | + + + + + + | Protein, | 30 mg/dL (A) | Negative | [facility] | | | Urine | | | [facility] | | | | | | [facility] | | | | | | CENTER - | | | | | | LABORATORY | | + + + + + + | Blood, | Negative | Negative | [facility] | | | Urine | | | [facility] | | | | | | [facility]ICAL | | | | | | CENTER - | | | | | | LABORATORY | | + + + + + + | Glucose, | Negative | Negative | [facility] | | | Urine | | | [facility] | | | | | | [facility]ICAL | | | | | | CENTER - | | | | | | LABORATORY | | + + + + + + | Ketones, | Trace (A) | Negative | [facility] | | | Urine | | | [facility] | | | | | | MEDICAL | | | | | | CENTER - | | | | | | LABORATORY | | + + + + + + | Bilirubin, | Negative | Negative | [facility] | | | Urine | | | [facility] | | | | | | MEDICAL | | | | | | CENTER - | | | | | | LABORATORY | | + + + + + + | Nitrite, | Negative | Negative | [facility] | | | Urine | | | [facility] | | | | | | MEDICAL | | | | | | CENTER - | | | | | | LABORATORY | | + + + + + + | Leukocyte | Negative | Negative | [facility] | | | Esterase, | | | [facility] | | | Urine | | | MEDICAL | | | | | | CENTER - | | | | | | LABORATORY | | + + + + + + | Urobilinoge | 2.0 mg/dL (A) | 0.2 mg/dL, 1.0 | [facility] | | | n, Urine | | mg/dL, Negative | [facility] | | | | | | MEDICAL | | | | | | CENTER - | | | | | | LABORATORY | | + + + + + + | WBC UA | 2-5 (A) | 0 - 2 /HPF | [facility] | | | | | | [facility] | | | | | | [facility] | | | | | | CENTER - | | | | | | LABORATORY | | + + + + + + | RBC UA | 5-10 (A) | 0 - 2 /HPF | [facility] | | | | | | [facility] | | | | | | [facility] | | | | | | CENTER - | | | | | | LABORATORY | | + + + + + + | SQUAMOUS | >100 (A) | 0 - 2 /LPF | [facility] | | | EPITHELIAL | | | [facility] | | | UA | | | MEDICAL | | | | | | CENTER - | | | | | | LABORATORY | | + + + + + + | BACTERIA UA | Negative | Negative /HPF | [facility] | | | | | | [facility] | | | | | | [facility] | | | | | | CENTER - | | | | | | LABORATORY | | + + + + + + | MUCUS UA | Present (A) | Negative /LPF | [facility] | | | | | | [facility] | | | | | | [facility]ICAL | | | | | | CENTER - | | | | | | LABORATORY | | + + + + + + | CALCIUM | Few (A) | None Seen /HPF | [facility] | | | [facility] | | | [facility] | | | [facility]ST[facility] | | | MEDICAL | | | | | | CENTER - | | | | | | LABORATORY | | + + + + + + | HYALINE | 2-5 (A) | 0 - 2 /LPF | [facility] | | | [facility] | | | [facility] | | | | | | MEDICAL [...] + | [facility] | [address] | [place] | [phone] | | [facility] | | [address] | | | - LABORATORY | | | | + + + + + Culture, Urine (01/22/2019 0:19 PDT) + + + + + + | Component | Value | Ref Range | Performed | Pathologist | | | | | At | Signature | + + + + + + | Culture | >100,000 CFU/ml Mixed | | [facility] | | | | Gram Positive | | [facility] | | | | FloraComment: Suggests | | MEDICAL | | | | contamination with | | CENTER - | | | | urogenital or skin | | LABORATORY | | | | daisy.No further work-up | | | | | [...] ST. | [address] | [place] | [phone] | | [facility] | | [address] | | | - LABORATORY | | | | + + + + + Central Line (01/21/2019 23:53 PDT) [...] | | | | SONYA ALANIZ MD ([id number]) | | | | | | on [...] | | | + +---------+ + + Extra Patterson Top Tube (01/21/2019 5:41 PDT) + +-------+ + + + | Component | Value | Ref Range | Performed | Pathologist | | | | | At | Signature | + +-------+ + + + | Extra Patterson | Done | | [facility] | | | Top Tube | | | [facility] | | | | | | MEDICAL [...] [address] | [place] | [phone] | | [facility] | | [address] | | | - LABORATORY | | | | + + + + + LABS - EXTERNAL SCAN (01/19/2019 0:00 PDT) + + + | Narrative | Performed At | + + + | Ordered by an | | | unspecified provider. | | + + + IMAGING REPORT - EXTERNAL SCAN (01/18/2019 0:00 PDT) + + + | Narrative | Performed At | + + + | Ordered by an | | | unspecified provider. | | + + + MRI Brain w wo Contrast [...] | | | + +---------+ + + from Last 3 Months Insurance + +--------+ +--------+ +---------+--------+ | Payer | Benefi | Subscriber | Effect | Phone | Address | Type | | | t Plan | ID | [place] | | | | | | / | | Dates | | | | | | Group | | | | | | + +--------+ +--------+ +---------+--------+ | [employer] | MODA | [id number] | | [phone] | | Medica | | MEDICAID HMO | HEALTH | | 019-Pr | 1 | | id | | | MDCD | | esent | | | | | | HMO [place] | | | | | | + +--------+ +--------+ +---------+--------+ | [employer] | [employer] | [id number] | | [phone] | | Medica | | MEDICAID HMO | HEALTH | | 019-Pr | 1 | | id | | | MDCD | | esent | | | | | | HMO [place] | | | | | | + +--------+ +--------+ +---------+--------+ + +--------+ +--------+ + + | Guarantor Name | Accoun | Relation to | Date | Phone | Billing Address | | | t Type | Patient | of | | | | | | | | | | + +--------+ +--------+ + + | Luba Gil | Person | Self [birth year] | [address] | | | al/Fam | | 1989 | [phone] | [place] [address] | | | serenity | | | 2 (Home) | | + +--------+ +--------+ + + | Luba Gil | Person | Self | [birth year] | [address] | | | al/Fam | | 1989 | [address] | [place] [address] | | | serenity | | | 2 (Home) | | + +--------+ +--------+ + + Advance Directives Patient has advance care planning documents, and code status on file. For more information, please contact:[facility] [place] [address] + + + + + | Code Status | Date | Date | Comments | | | Activated | Inactivated | | + + + + + | Full Code | 01/22/2019 | 01/29/2019 | | | | 5:21 | 16:56 | | + + + + +
--- OUTSIDE RECORDS SUMMARY | ~2019-01-31 | XMS | Encounter Summary ---
Demographics + + + | Address | [address] | | | [place] [address] | + + + | Home Phone | | + + + | Preferred Language | Unknown | + + + | Marital Status | Single | + + + | Confucianism Affiliation | Unknown | + + + | Race | Unknown | + + + | Ethnic Group | Unknown | + + + Author + + + | Author | [facility] | | | and Romarioana | + + + | Organization | [facility] | | | [...] [place] | | | | | [place] | | | | | [address] | | + + + + + Care Team Providers + +------+ + | Care Automated Process Operator Name | Role | Phone | + +------+ + | Dada Silver PCP | | + +------+ + Encounter Details +--------+ + + + + | Date | Type | Department | Care Team | Description | +--------+ + + + + | 01/21/ | Jeannette | [facility] | Vladislav Montes, | | | 2019 | Encounter | [facility] | MD [address] | | | | | [place] [address] | [place] | | | | | [place] | [address] | | | | | [address] | | | | | | [phone] | | | +--------+ + + + [...] [place] | | | | | | [address] | | | | | | | | +--------+---------+ + + + documented as of this encounter Visit Diagnoses Not on filedocumented in this encounter"
--- OUTSIDE RECORDS SUMMARY | ~2019-01-31 | XMS | Clinical Summary ---
Demographics + + + | Address | [address] | | | [place] [address] | + + + | Home Phone | | + + + | Preferred Language | Unknown | + + + | Marital Status | Single | + + + | Presybeterian Affiliation | NON | + + + | Race | White | + + + | Ethnic Group | Not or | + + + Author + + + | Author | [facility] | + + + | Organization | [facility] | + + + | Address | Unknown | + + + | Phone | Unavailable | + + + Care Team Providers + +------+ + | Care Contract Mail Carrier Name | Role | Phone | + +------+ + PCP | Unavailable | + +------+ + Source Comments GLADIS is fully live on both EpicCare Ambulatory and EpicCare InPatient.[facility] Allergies Not on File Medications Not on file Active Problems Not on file Encounters +--------+--------+ + + + | Date | Type | Specialty | Care Team | Description | +--------+--------+ + + + | // | Intake | | | N/A | | 2019 | | | | | +--------+--------+ + + + from Last 3 Months Social History + +-------+ +--------+------+ | Tobacco [...] | + + Last Filed Vital Signs Not on file Plan of Treatment Not on file Results Not on filefrom Last 3 Months Insurance + +--------+ +--------+-------+---------+--------+ | Payer | Benefi | Subscriber | Effect | Phone | Address | Type | | | t Plan | ID | [place] | | | | | | / | | Dates | | | | | | Group | | | | | | + +--------+ +--------+-------+---------+--------+ | [employer] | [employer] | xxxxxxxx | Effect | | | Medica | | | [place]AST[place] | | [place] | | | id | | | [place] | | for | | | | | | | | all | | | | | | | | dates | | | | + +--------+ +--------+-------+---------+--------+ + +--------+ +--------+ + + | Guarantor Name | Accoun | Relation to | Date | Phone | Billing Address | | | t Type | Patient | of | | | | | | | | | | + +--------+ +--------+ + + | Sandhya Gil | Person | Self [birth year] | [address] | | | al/Fam | | 1990 | [phone] | [place] [address] | | | serenity | | | 6 (Home) | | + +--------+ +--------+ + +"
--- OUTSIDE RECORDS SUMMARY | ~2019-01-31 | XMS | Encounter Summary ---
Demographics + + + | Address | [address] | | | [place] [address] | + + + | Home Phone | | + + + | Preferred Language | Unknown | + + + | Marital Status | Single | + + + | Advent Affiliation | Unknown | + + + | Race | Unknown | + + + | Ethnic Group | Unknown | + + + Author + + + | Author | [facility] | | | and Romarioana | + + + | Organization | [facility] | | [...] [place] | | | | | [place] | | | | | [address] | | + + + + + Care Team Providers + +------+ + | Care Manager Voice Name | Role | Phone | + +------+ + | No, Physician | PCP | Unavailable | + +------+ + Reason for Visit + + + | Reason | Comments | + + + | Medical Problem | | | (Major) | | + + + Encounter Details +--------+ + + + + | Date | Type | Department | Care Team | Description | +--------+ + + + + | 01/21/ | Emergency | [facility] | Vladislav Montes, | Severe frontal | | 2019 | | [facility] | MD [address] | headaches (Primary | | | | CENTER [address] | [place], [place] | Dx) | | | | [place], [place] | [address] | | | | | [address] | | | | | | [phone] | | | +--------+ + + + [...] + + + | Blood Pressure | 124/81 | 01/21/201959 PDT | + + + + | Pulse | 65 | 01/21/201959 PDT | + + + + | Temperature | 36.7 C (98 F) | 01/21/2019508 PDT | + + + + | Respiratory Rate | 18 | 01/21/2019500 PDT | + + + + | Oxygen Saturation | 100% | 01/21/2019558 PDT | + + + + | Inhaled Oxygen | - | - | | Concentration | | | + + + + | Weight | 56.7 kg (125 lb) | 01/21/2019500 PDT | + + + + | Height | 170.2 cm (5' 7") | 01/21/2019500 PDT | + + + + | Body Mass Index | 19.58 | 01/21/2019 0501 PDT | + + + + documented in this encounter Discharge Instructions AttachmentsThe following attachments cannot be sent through Care Everywhere.Headaches, Self -Care for (Scottish)documented in this encounter Medications at Time of [...] into | 20 each | 0 | 01/31/20 | | | (CUBICIN) IVPB 6 | [...] into | 20 each | 0 | 01/31/20 | | | (CUBICIN) IVPB 6 | the vein every 24 | | | 19 | 9 | | mg/kg = 400 | hours. Indications: | | | | | | mgIndications: | Bacterial | | | | | | Bacterial | Endocarditis | | | | | | Endocarditis | | | | | | + + + +---------+ + + | DAPTOmycin | Inject 400 mg into | 21 each | 0 | 01/28/ | | | (CUBICIN) IVPB 6 | the vein every 24 | | | 19 | 9 | | mg/kg = 400 | hours. Indications: | | | | | | mgIndications: | Bacterial | | | | | | Bacterial | Endocarditis | | | | | | Endocarditis | | | | | | + + + +---------+ + + | DAPTOmycin | Inject 400 mg into | 21 each | 0 | 01/29/20 | | | (CUBICIN) IVPB 6 | the vein every 24 | | | 19 | 9 | | mg/kg = 400 | hours. [...] | 2019 | Visit | | [address] | | | | | | [place] | | | | | | [address] | | | | | | | | +--------+---------+ + + + + +--------+ + + | Name | Priori | Associated Diagnoses | Date/Time | | | ty | | | + +--------+ + + | ED INFORMATION EXCHANGE | Routin | | 01/21/2019 4:49 PDT | | | e | | | + +--------+ + + documented as of this encounter Procedures + +--------+ + + + | Procedure Name | Priori | Date/Time | Associated Diagnosis | Comments | | | ty | | | | + +--------+ + + + | EXTRA PATTERSON TOP TUBE | [...] + + | COMPREHENSIVE | STAT | 01/21/2019 | | Results for this | | METABOLIC PANEL | | 5:36 PDT | | procedure are in the | | | | | | results section. | + +--------+ + + + | ED INFORMATION | Routin | 01/21/2019 | | | | EXCHANGE | e | 4:49 PDT | | | + +--------+ + + + +---+--------+ | | | | | Proced | | | ure | | | Note - | | | Pernell, | | | Lab In | | | | | | Hlseve | | | n - | | | 09/13/ | | | 2019 | | | [...] | | | ON?09/ | | | 13/201 | | | 9 | | | 04:48? | | | GIL, | | | LUBA | | | L?MRN: | | | | | | [id number] | | | [id number] | | | riteri | | | [...] | | | St. | | | [place] | | | y | | | [...] | | | St. | | | [place] | | | y | | | [...] | | | EOIPA. | | | 6/26/1 | | | 9 | | | 12:00 | | | AM | | | [facility] | | | [place] | | | y | | | [...] | | | St. | | | [place] | | | y | | | [...] | | | St. | | | [place] | | | y | | | [...] | | | St. | | | [place] | | | y H. | | | [place]. | | | [place] | | | [facility] | | | ncy | | | Chief | | | Compla | | | int: | | | [facility] | | | Pete | | | 1, | | | 2019 | | | [facility] | [facility] | | | [place] | | | y H. | | [...] | | | St. | | | [place] | | | y H. | | [...] | | | St. | | | [place] | | | y H. | | [...] | | | St. | | | [place] | | | y H. | | [...] | | | St. | | | [place] | | | y H. | | [...] | | | MD | | | Flow Specialist | | | al | | | [...] | | | m | +---+--------+ + +---+ +---+ + | LABS - EXTERNAL SCAN | | 01/19/2019 | | Results for this | | | | 0:00 PDT | | procedure are in the | | | | | | results section. | + +---+ +---+ + | IMAGING REPORT - | | 01/18/2019 | | Results for this | | EXTERNAL SCAN | | 0:00 PDT | | procedure are in the | | | | | | results section. | + +---+ +---+ + documented in this encounter Results Extra Patterson Top Tube (01/21/2019 5:41 PDT) [...] + | [facility] | [address] | [place] | [phone] | | [facility] | | [address] | | | - LABORATORY | | | | + + + + + C-Reactive Protein (01/21/2019 5:36 PDT) + + + + + + | Component | Value | Ref Range | Performed | Pathologist | | | | | At | Signature | + + + + + + | CRP | 35.50 (H) | <10.00 mg/L | [facility] | | | | | | [facility] | | | | | [...] + | [facility] | [address] | [place] | [phone] | | [facility] | | [address] | | | - LABORATORY | | | | + + + + + Procalcitonin (01/21/2019 5:36 PDT) + + + + + + | Component | Value | Ref Range | Performed | Pathologist | | | | | At | Signature | + + + + + + | Procalciton | 8.68 ()Comment: | <=0.50 ng/mL | [facility] | | | in | Critical Result called | | [facility] | | | | to and read back by Isauro | | MEDICAL | | | | RANDA Martinez on 01/21/2019 | | CENTER - | | | | at 6:15 by Lisa Haynes | | LABORATORY | | | | Pramod. | | | | + + + + + + | Comment | Comment: < 0.50 | | [facility] | | | | ng/mL:Procalcitonin | | [facility] | | | | levels below 0.50 [...] + + | [facility] | [address] | [place] | [phone] | | [facility] | | [address] | | | - LABORATORY | | | | + + + + + Comprehensive Metabolic Panel (01/21/2019 5:36 PDT) + + + + + + | Component | Value | Ref Range | Performed | Pathologist | | | | | At | Signature | + + + + + + | Na | 142 | 136 - 145 | [facility] | | | | | mmol/L | [facility] | | | | | | MEDICAL | | | | | | CENTER - | | | | | | LABORATORY | | + + + + + + | K | 3.0 (L) | 3.4 - 5.1 | [facility] [...] + + + + | CO2 | 27 | 20 - 31 mmol/L | [facility] | | | | | | [facility] | | | | | | MEDICAL | | | | | | CENTER - | | | | | | LABORATORY | | + + + + + + | Anion Gap | 10 | 3 - 16 mmol/L | [facility] [...] + + + + | Creatinine | 0.55 | 0.55 - 1.02 | [facility] | | | | | mg/dL | [facility] | | | | | | MEDICAL | | | | | | CENTER - | | | | | | LABORATORY | | + + + + + + | eGFR if not | >60Comment: GLOMERULAR | >=60 | [facility] | | | | FILTRATION | mL/min/1.73m2 | [facility] | | | [place] | RATE,ESTIMATED mL/min | | MEDICAL | | | | /1.34p2Yozg than 60 | | CENTER - | [...] + + + + | Albumin | 4.5 | 3.2 - 4.8 g/dL | [facility] [...] | | Total | | | [facility] | | | | | | MEDICAL | | | | | | CENTER - | | | | | | LABORATORY | | + + + + + + | Total | 6.7 | 5.7 - 8.2 g/dL | [facility] | | | Protein | | | [facility] | | | | | | MEDICAL | | | | | | CENTER - | | | | | | LABORATORY | | + + + + + + | AST | 15 | 0 - 34 U/L | [facility] | | | | | | [facility] | | | | | | MEDICAL | | | | | | CENTER - | | | | | | LABORATORY | | + + + + + + | ALT | 14 | 10 - 49 U/L | [facility] | | | | | | [facility] | | | | | | MEDICAL | | | | | | CENTER - | | | | | | LABORATORY | | + + + + + + | Alkaline | 68 | 46 - 116 U/L | [facility] | | | Phosphatase | | | [facility] | | | | | | MEDICAL | | | | | | CENTER - | | | | | | LABORATORY | | + + + + + + | Globulin | 2.2 | 2.1 - 3.8 g/dL | [facility] | | | | | | [facility] | | | | | | MEDICAL | | | | | | CENTER - | | | | | | LABORATORY | | + + + + + + | Albumin/Delia | 2.0 (H) | 0.8 - 1.9 | [facility] | | | bulin Ratio | | | [facility] | | | | | | MEDICAL | | | | | | CENTER - | | | | | | LABORATORY | | + + + + + + | BUN/Creatin | 12.7 | | [facility] | | | ine [...] ST. | [address] | [place], [place] | [phone] | | [facility] | | [address] | | | - LABORATORY | | | | + + + + + CBC with Differential (01/21/2019 5:36 PDT) + + + + + + [...] + + + + | RBC | 4.26 | 3.70 - 5.20 | [facility] | | | | | M/uL | [facility] | | | | | | MEDICAL | | | | | | CENTER - | | | | | | LABORATORY | | + + + + + + | Hemoglobin | 13.0 | 11.5 - 16.0 | [facility] | | | | | g/dL | [facility] | | | | | | MEDICAL | | | | | | CENTER - | | | | | | LABORATORY | | + + + + + + | Hematocrit | 38.6 | 34.0 - 47.0 % | [facility] | | | | | | [facility] | | | | | | MEDICAL | | | | | | CENTER - | | | | | | LABORATORY | | + + + + + + | MCV | 90.6 | 83.0 - 101.0 fL | [facility] [...] + + + + | MCHC | 33.7 | 32.0 - 36.0 | [facility] | [...] + + + + | RDW-SD | 45.8 | 35.1 - 46.3 fL | [facility] | | | | | | [facility] | | | | | | MEDICAL | | | | | | CENTER - | | | | | | LABORATORY | | + + + + + + | Platelet | 229 | 140 - 440 K/uL | [facility] | | | Count | | | [facility] | | | | | | MEDICAL | | | | | | CENTER - | | | | | | LABORATORY | | + + + + + + | MPV | 9.8 | 6.5 - 12.4 fL | [facility] | | | | | | [facility] | | | | | | MEDICAL | | | | | | CENTER - | | | | | | LABORATORY | | + + + + + + | % | 61.2 | 45.0 - 82.0 % | [facility] | | | Neutrophils | | | [facility] | | | | | | MEDICAL | | | | | | CENTER - | | | | | | LABORATORY | | + + + + + + | % | 28.7 | 20.0 - 45.0 % | [facility] | | | Lymphocytes | | | [facility] | | | | | | MEDICAL | | | | | | CENTER - | | | | | | LABORATORY | | + + + + + + | % Monocytes | 8.1 | 4.0 - 12.0 % | [facility] | | | | | | [facility] | | | | | | MEDICAL | | | | | | CENTER - | | | | | | LABORATORY | | + + + + + + | % | 1.2 | 0.0 - 5.0 % | [facility] [...] + + + | % Immature | 0.3Comment: For | 0.0 - 0.4 % | [facility] | | | Granulocyte | patients, use the | | [facility] | | | s | special reference ranges | | MEDICAL | | | | listed below. | | CENTER - | | | | | | LABORATORY | | + + + + + + | Absolute | 3.95 | 1.80 - 8.50 | [facility] | | | Neutrophils | | K/uL | [facility] | | | | | | MEDICAL | | | | | | CENTER - | | | | | | LABORATORY | | + + + + + + | Absolute | 1.85 | 0.60 - 3.20 | [facility] | | | Lymphocytes | | K/uL | [facility] | | | | | | MEDICAL | | | | | | CENTER - | | | | | | LABORATORY | | + + + + + + | Absolute | 0.52 | 0.00 - 1.00 | [facility] | | | Monocytes | | K/uL | [facility] | | | | | | MEDICAL | | | | | | CENTER - | | | | | | LABORATORY | | + + + + + + | Absolute | 0.08 | 0.00 - 0.40 | [facility] | | | Eosinophils | | K/uL | [facility] | | | | | | MEDICAL | | | | | | CENTER - | | | | | | LABORATORY | | + + + + + + | Absolute | 0.03 | 0.00 - 0.10 | [facility] | | | Basophils | | K/uL | [facility] | | | | | | MEDICAL | | | | | | CENTER - | | | | | | LABORATORY | | + + + + + + | Absolute | 0.02Comment: For | 0.00 - 0.03 | [facility] | | | Immature | patients, use | K/uL | [facility] | | | Granulocyte | the special [...] Trim. Absolute (K/uL) Percentage (%) | [facility] | | 1st 0.003-0.091 K/uL 0.0-0.9% 2nd 0.007-0.247 K/uL [facility] | | 0.1-2.0% [facility] 0.018-0.456 K/uL 0.1-2.0% | - LABORATORY | + + + + + + + + | Performing | Address | City/State/Zipcode | Phone Number | | Organization | | | | + + + + + | [facility] | [address] | [place] | [phone] | | [facility] | | [address] | | | - LABORATORY | | [...] unspecified provider. | | + + + documented in this encounter Visit Diagnoses + + | Diagnosis | + + | Severe frontal headaches - Primary Headache | + + documented in this encounter Administered Medications + +--------+ +-------+------+ + | Medication Order | MAR | Action | Dose | Rate | Site | | | Action | Date | | | | + +--------+ +-------+------+ + | diphenhydrAMINE (BENADRYL) | Given | 01/22/20 | 50 mg | | Deltoid- | | injection 50 mg 50 mg, | | 19 5:41 | | | Right | | Intramuscular, ONCE, Thu01/21/19 | | PDT | | | | | at 0530, For 1 dose | | | | | | + +--------+ +-------+------+ + +---+---+ | | | +---+---+ + +-------+ +-------+---+ + | ketorolac (TORADOL) injection | Given | 01/22/20 | 30 mg | | Glut-Lef | | 30 mg 30 mg, Intramuscular, | | 19 5:38 | | | t | | ONCE, Thu01/21/19 at 0530, For 1 | | PDT | | | | | dose | | | | | | + +-------+ +-------+---+ + +---+---+ | | | +---+---+ + +-------+ +------+---+ + | LORazepam (ATIVAN) injection 1 | Given | 01/22/20 | 1 mg | | Glut-Rig | | mg 1 mg, Intramuscular, ONCE, | | 19 5:36 | | | ht | | 01/21/19 at 0530, For 1 dose | | PDT | | | | + +-------+ +------+---+ + +---+---+ | | | +---+---+ + +-------+ +---------+---+ + | promethazine (PHENERGAN) (IM | Given | 01/22/20 | 12.5 mg | | Deltoid- | | ONLY) injection 12.5 mg 12.5 mg, | | 19 5:40 | | | Left | | Intramuscular, ONCE, 01/21/19 | | PDT | | | | | at 0530, For 1 dose, Vesicant. | | | | | | | Give by deep IM injection into a | | | | | | | large muscle., | | | | | | + +-------+ +---------+---+ + +---+---+ | | | +---+---+ documented in this encounter
--- NOTE | 2019-01-31 16:00 | NUR ---
PT ARRIVED TO UNIT VIA STRETCHER. AMB TO HOSPITAL BED INDEPENDENTLY. PT DENIES PAIN BUT STATES "I'M WITHDRAWALING SO I JUST FEEL LIKE CRAP. I'D LIKE SOME METHADONE AND ATIVAN SOON I CAN GET IT." MEDICATED AT THIS TIME. PT ALERT AND ORIENTED, APPEARS ANXIOUS BUT IS APPROPRIATE. CALL LIGHT WITHIN REACH. PT EDUCATED ON PLAN OF CARE. PT VERBALIZES UNDERSTANDING.
--- NOTE | 2019-01-31 17:48 | NUR ---
MIDLINE INSERTION NOTE ASKED TO EVALUATE PT FOR A PICC OR MIDLINE BY DR. GIBBONS FOR THIS PT DUE TO POOR IV ACCESS AND NEEDING DAILY ABX. PT AND PT'S NURSE WERE TALKED TO AND NO CONTRAINDICATIONS ARISED. PT GIVES VERBAL CONSENT FOR THE PROCEDURE. PT'S RIGHT UPPER ARM ASSESSED PT HAS AN IV IN THE LEFT ARM. PT BASILIC AND BRACHIAL VEINS WERE IDENTIFIED WELL THE BRACHIAL ARTERY WITH THE SITE RITE U/S. THE BASILIC VEIN WAS ESTIMATED TO BE 6 FR VIA THE SITE RITE U/S. THE BASILIC VEIN WAS CHOSEN TO USE PER RECOMMENDATIONS. THE BASILIC VEIN WAS ACCESSED WITH NO COMPLICATIONS, THE GUIDEWIRE, INTRODUCER, AND MIDLINE WENT EASILY UP THE VEIN. PT REPORTS NO PAIN DURING THE PROCEDURE. MIDLINE DRESSED, GAUZE AND COBAN WRAPPED AROUND THE OUTSIDE OF THE DRESSING TO APPLY PRESSURE TO PREVENT SWELLING AROUND THE SITE. MIDLINE DOES PROVIDE BLOOD RETURN. REPORT GIVEN TO JAMEL JEFFRIES RN. ALL QUESTIONS ANSWERED.
--- NOTE | 2019-01-31 18:27 | NUR ---
MIDLINE WRAPPED WITH WATERPROOF DRESSING AND PT UP TO SHOWER INDEPENDENTLY. PT ATE SMALL AMOUNT OF DINNER, ISAIAS WELL. REPORTS FEELING BETTER AFTER RECIEVING METHADONE.
--- NOTE | 2019-01-31 19:49 | NUR ---
RECEIVED REPORT FROM MEGHAN MCCULLOUGH IN BED, WATCHING TV. NO NEEDS AT THIS TIME.
--- NOTE | 2019-01-31 20:35 | NUR ---
DR GIBBONS NOTIFIED OF PT REQUEST OF TRAZADONE FOR SLEEP IF NEEDED. HE WILL PUT THE ORDER IN. PT IN ROOM ALONE, WATCHING TV.
--- NOTE | 2019-01-31 23:28 | NUR ---
PT WITH EYES CLOSED, RESP EVEN AND UNLABORED, CALLED HER NAME SEVERAL TIMES, TO WAKE HER FOR THE SCHEDULED METHADONE. SHE STATED THAT SHE HASN'T BEEN TOSSING AND TURNING, BUT ALSO NOT BEEN SLEEPING. DENIES NEEDS. HAS NOT VOIDED, HAS BEEN DRINKING SODA, WITH SOME WATER.
--- NOTE | 2019-02-01 01:02 | NUR ---
CHECKED ON PT. LAYING ON BACK, EYES CLOSED, RESP EVEN AND UNLABORED, @ 16. TV ON, CALL LIGHT WITHIN REACH.
--- NOTE | 2019-02-01 01:46 | NUR ---
AWAKE AND EATING CHIPS, DRINKING SODA, STATES USED THE BATHROOM. REQUESTED AND RECEIVED A WARM BLANKET, STATING THAT WHEN SHE FALLS ASLEEP SHE WILL PROBABLE KICK THEM ALL OFF. NO OTHER NEEDS AT THIS TIME.
--- NOTE | 2019-02-01 03:34 | NUR ---
PT COMPLAINED OF NOT BEING ABLE TO SLEEP, FEELING ANXIOUS. MED WITH PRN MEDICATION; WANTS DR TO INCREASE THE TRAZONE FOR NEXT DOSE TO [address] GIBBONS KNOW.
--- NOTE | 2019-02-01 05:00 | NUR ---
EYES CLOSED, LAYING ON RIGHT SIDE, RESP EVEN AND UNLABORED.
--- NOTE | 2019-02-01 05:53 | NUR ---
PT HERE SWG BED. A/O, INDEPENDENT IN ROOM, R/A. MIDLINE RIGHT FLUSHES WELL, PULLS BACK BLOOD, HEP LOCKED. MED WITH TRAZADONE FOR SLEEP; WELL VISTERIL FOR ANXIETY R/T STAYING ASLEEP. RECEIVES METHADONE FOR DRUG WITHDRAWAL, WITH LAST IV DRUG USES 01/30/19. ON REGULAR DIET, DRINKS COLA; ATE CHIPS; CRACKERS; PUDDING DURING NIGHT; VOIDED X 1. DENIED OTHER NEEDS. WOULD LIKE TO HAVE TRAZADONE DOSE INCREASED TO 100 MG, MESSAGE TO DR GIBBONS. NO VISIORS IN OVERNIGHT.
--- NOTE | 2019-02-01 08:53 | NUR ---
PT RESTING IN BED, APPEARS TO BE SLEEPING SOUNDLY. EYES CLOSED, RESP EVEN AND UNLABORED.
--- NOTE | 2019-02-01 09:20 | NUR ---
PT SITTING UP IN BED EATING BREAKFAST. ALERT AND ORIENTED. DENIES NEEDS OR CONCERNS AT THIS TIME. RIGHT ARM MIDLINE FLUSHES EASILY, DRESSING CDI. INDEPENDENT IN ROOM.
[2019-02-01] MEDS ORDERED: METHADONE HCL5 MG PO (10:09)
[2019-02-01] MEDS ORDERED: CUBICIN RF500 MG IV (10:10)
[2019-02-01] MEDS ORDERED: TRAZODONE HCL50 MG PO (10:15)
[2019-02-01] MEDS ORDERED: ATIVAN1 MG PO (10:16)
--- NOTE | 2019-02-01 10:16 | NUR ---
MED REC COMPLETE
--- NOTE | 2019-02-01 10:30 | NUR ---
PT ASKING QUESTIONS ABOUT ANTIBIOTICS AND POC. EDUCATED PT. PROVIDED THERPEUTIC COMMUNICATION CONCERNING PT'S DRUG USE AND HISTORY. REASSURED PT IMPORTANCE OF TREATMENT AND THAT SHE IS WORTHY OF LIVING A HAPPY, HEALTHY LIFE. PT AGREEABLE STATES "I JUST HAVE TO GET MY HEAD IN THE RIGHT PLACE."
--- NOTE | 2019-02-01 13:30 | NUR ---
PT IN BED EXTREMELY DROWSY, DIFFICULT TO AROUSE. AWAKENS TO VOICE BUT HAS DIFFICULTY OPENING EYES, SPEECH MUMBLED. PT STATES "I FEEL DELIRIOUS". NOTIFIED MEHRAN CHARGE NURSE AND DR. GIBBONS. NO NEW ORDERS AT THIS TIME.
--- NOTE | 2019-02-01 15:00 | NUR ---
SPOKE WITH PATIENT IN ROOM. PATIENT LAYING QUIETLY WITH EYES CLOSED WHEN I ENTERED. WOKE UP TO NOISE. PATIENT STATES SHE IS FEELING "LITTLE RAW" BUT STATES THE METHADONE "IS KICKING IN AND IT IS BETTER". DISCUSSED AGAIN THE SWINGBED PROGRAM. SHE STATES UNDERSTANDING. DISCUSSED I'LL CHECK WITH HER IN A COUPLE DAYS TO TALK AGAIN. SHE IS AGREEMENT WITH THIS. WILL CONTINUE TO FOLLOW.
--- NOTE | 2019-02-01 16:19 | NUR ---
PT LYING IN BED IN THE DARK WATCHING TV. MORE AWAKE AND ALERT NOW. PT ATE A SMALL SNACK. UP TO RESTROOM INDEPENDENTLY. INFORMED PT SHE CAN AMBULATE HALLWAY WITH STAFF IF DESIRED, PT STATED "I DON'T REALLY FEEL LIKE IT, I WOULD PROBABLY JUST WANNA SMOKE A CIGARRETTE." CALL LIGHT WITHIN REACH.
--- NOTE | 2019-02-01 18:08 | NUR ---
VISITOR CAME TO NURSES STATION AND ASKED TO SEE PATIENT, CHARGE NURSE SAID IT WAS OKAY LONG STAFF WAS IN ROOM. THIS HEAD ATHLETIC TRAINER IN ROOM WITH PATIENT WHILE VISITOR WAS IN ROOM. NO PROBLEMS OCCURED. VISITOR SHOWED WHAT HE HAS BEFORE GOING IN ROOM AND WHEN LEAVING ROOM.
--- NOTE | 2019-02-01 18:50 | NUR ---
PT AWAKE IN BED WATCHING TV. ATE MOST OF DINNER. DENIES NEEDS OR CONCERNS AT THIS TIME. CALL LIGHT WITHIN REACH.
--- NOTE | 2019-02-01 19:05 | NUR ---
IN ROOM FOR REPORT, PT DENIES NEEDS AT THIS TIME. CALL LIGHT IS CLOSE.
--- NOTE | 2019-02-01 20:26 | NUR ---
patient asked for 5 saltine crackers. provided.
--- NOTE | 2019-02-01 21:11 | NUR ---
IN ROOM TO ASSESS PT AND ADMINISTER MEDICATIONS. PT NOT HAPPY ABOUT TRAZADONE DOSAGE NOT BEING INCREASED. WE TALKED ABOUT HER TAKING IT A LITTLE LATER TONIGHT. SHE IS AGITATED AND ANXIOUS. KATHY HER WILL BRING THE ATIVAN SOON IT IS DUE NEXT. SHE REPORTS SOME MUSCLE SORENESS BUT DENIES FURTHER NEEDS. CALL LIGHT IS WITHIN REACH.
--- NOTE | 2019-02-01 22:29 | NUR ---
ADMINISTERED MEDICATIONS AND HEPLOCKED MIDLINE. PT DENIES FURTHER NEEDS AT THIS TIME. CALL LIGHT IS WITHIN REACH.
--- NOTE | 2019-02-01 23:49 | NUR ---
SNACK PACK AND CHIPS PROVIDED.
--- NOTE | 2019-02-02 01:45 | NUR ---
IN ROOM TO CHECK ON PT, SHE REPORTS ANXIETY AND TROUBLE SLEEPING. ADMINISTERED 50MG VISTERIL. PT ALSO STATES SHE IS HUNGRY GAVE HER JELLO AND ICECREAM. SHE DENIES FURTHER NEEDS. CALL LIGHT IS WITHIN REACH.
--- NOTE | 2019-02-02 03:35 | NUR ---
PT IS RESTING WITH EYES CLOSED, RESPIRATIONS ARE EVEN AND NONLABORED. CALL LIGHT IS WITHIN REACH.
--- NOTE | 2019-02-02 05:24 | NUR ---
PT IS RESTING WITH EYES CLOSED, RESPIRATIONS ARE EVEN AND NONLABORED. CALL LIGHT IS WITHIN REACH.
--- NOTE | 2019-02-02 05:27 | NUR ---
PT HAD A DIFFICULT TIME SLEEPING LAST NIGHT. POSSIBLY FELL ASLEEP AROUND 3AM. SHE IS INDEPENDENT IN THE ROOM. PT HAS MIDLINE TO RIGHT UPPER ARM WHICH IS HEPLOCKED BETWEEN [facility]. SHE IS ON A REGULAR DIET AND HAS A GOOD APPETITE. VISITORS ARE RESTRICTED UNLESS A STAFF MEMBER IS IN THE ROOM. VS STABLE AND URINE OUTPUT IS GOOD.
--- NOTE | 2019-02-02 07:35 | NUR ---
RECIEVED REPORT FROM RANDA HUFF. PT RESTING IN BED WITH EYES CLOSED. RESPIRATIONS ARE EVEN AND UNLABORED.
--- NOTE | 2019-02-02 09:35 | NUR ---
PATIENT GIVEN NEWS PAPER.
--- NOTE | 2019-02-02 10:00 | NUR ---
PT RESTING IN BED WITH MINIMAL TALKING WITH NURSE. EYES CLOSED BUT COOPERATIVE. MEDICATIONS ADMINISTERED. MIDLINE DRESSING C/D/I AND ABLE TO PULL BACK. ASSESMENT COMPLETE. PT DID NOT WANT BREAKFAST OR LUNCH TO BE ORDERED AT THIS TIME. PT STATES THAT SHE WAS UP LAST NIGHT LATE AND JUST TIRED AT THIS TIME. CALL LIGHT WITHIN REACH.
--- NOTE | 2019-02-02 11:13 | NUR ---
VANCOMYCIN COMPLETED, FLUSHED LINE WITH 10ML OF NS, AND HEPARIN LOCKED. PT CURRENTLY TALKING ON THE PHONE. CALL LIGHT WITHIN REACH. DECLINES ORDER LUNCH AT THIS TIME. NO NEEDS/CONCERNS AT THIS TIME.
--- NOTE | 2019-02-02 11:57 | NUR ---
PT RESTING ON BACK WITH EYES CLOSED. RESPIRATIONS EVEN AND UNLABORED; 18. CALL LIGHT WITHIN REACH.
--- NOTE | 2019-02-02 12:30 | NUR ---
PT MOTHER IN ROOM WITH PT. ALL BELONGINGINS OF MOTHER CHECKED BEFORE GOING INTO ROOM. PT MOTHER COOPERATIVE AND UNDERSTANDING. PT MOTHER BROUGHT MCDONALDS, BAGS OF CHIPS, AND CANDY. WOKE PT UP WHO IS CURRENTLY SITING IN UP IN BED. PT STATES THAT HER BACK IS SORE. WILL HAVE PT GET UP AND MOVING AROUND TAKE A SHOWER AND FOLLOW UP WITH PAIN IN BACK. CALL LIGHT WITHIN REACH NO NEEDS/COCNERNS AT THIS TIME.
--- NOTE | 2019-02-02 13:30 | NUR ---
SPOKE WITH PATIENT IN ROOM. PT RESTING IN BED WITH EYES CLOSED. STATES SHE FEELS "LIKE SHIT". PATIENT FEELS LIKE THE METHADONE NEEDS TO BE HIGHER DOSE. PATIENT STATES SHE IS VERY WEAK AND TIRED ALL THE TIME. DISCUSSED ENDOCARDITIS AND WITHDRAWL. AGREED I WILL LET DR GIBBONS KNOW HOW SHE IS FEELING. ASKED IF SHE WOULD LIKE TO TALKE WITH A DRUG & ALCOHOL COUNSELOR. PATIENT STATES SHE DOESN'T WANT TO RIGHT NOW. DISCUSSED THAT WE CAN ARRANGE THIS DURING HER STAY AND SHE CAN DECIDE LATER, IT DOESN'T HAVE TO BE TODAY. SHE STATES SHE WILL THINK ABOUT IT. PATIENT SIPPING SODA, DENIES WANTING ANYTHING. DENIES FURTHER QUESTIONS.
--- NOTE | 2019-02-02 14:00 | NUR ---
PT RESTING IN BED WITH EYES CLOSED. RESPIRATION EVEN AND UNLABORED. EASILY AROUSABLE BY NOISE. PT STATES THAT SHE IS STILL TIRED DOES NOT WANT TO GET UP AND DOING ANYTHING SHE WANTS TO GO BACK TO SLEEP. MD NOTIFIED OF PT SLEEPNIESS SINCE THIS AM AND DECREASED TRAZODONE AND METHADONE. CALL LIGHT WITHIN REACH.
--- NOTE | 2019-02-02 14:47 | NUR ---
PT RESTING IN BED WITH EYES CLOSED. DIETARY GOING AROUND COLLECTING ORDERS FOR DINNER. PT ASKED IF SHE WOULD LIKE ANYTHING STATES THAT SHE IS NOT HUNGRY AT THIS TIME. CALL LIGHT WITHIN REACH. NO NEEDS/CONCERNS AT THIS TIME.
--- NOTE | 2019-02-02 16:42 | NUR ---
PT RESTING IN BED WITH TV ON. PT HAS EYES CLOSED BUT EASILY AROUSABLE BY NOISE. EDUCATED PT ON FLUID INTAKE AND EATING. PT DECLINES ORDERING ANYTHING FROM THE [place] AT THIS TIME. NOTIFIED MD ABOUT FLUID AND FOOD INTAKE FOR SHIFT. CALL LIGHT WITHIN REACH.
--- NOTE | 2019-02-02 17:47 | NUR ---
PT RESTING IN BED AWAKE WATCHING TV. PT ORDERED DINNER CHEESBURGER, BAKED POTATO, AND BROCCOLI. CALL LIGHT WITHIN REACH AND NO ADDITIONAL NEEDS AT THIS TIME.
--- NOTE | 2019-02-02 18:27 | NUR ---
PT RESTING IN BED. VITAL SIGNS ARE FOLLOWS: BP- 89/44 MAP 55 HR-83 RESP-16 TEMP-98.6 O2- 97% ON RA MD NOTIFIED WITH ORDERS TO GIVE PT 500ML OF WATER PO AND RECHECK BP IN 1 HOUR. EDUCATED PT ON THE IMPORTANCE OF DRINKING FLUIDS AND THAT WE NEED HER TO DRINK 500ML OF WATER AND RECHECK. PT STATES AN UNDERSTANDING BUT CLOSES EYES AFTER NURSE EDUCATED.
--- NOTE | 2019-02-02 18:55 | NUR ---
VISITED WITH PT ABOUT FLUID INTAKE AND DOESNT APPEAR TO HAVE DRANK ANYTHING. EXPLAINED TO THE PT WE NEEDED HER TO DRINK 500ML IN THE NEXT 30 MINUTES. PT STATES THAT SHE CANT DRINK THAT MUCH THAT QUICK. ASKED PT TO DRINK SOME FOR THIS NURSE. PT STATES "I WILL I WILL" PT DID NOT DRINK WHILE THIS NURSE WAS IN THE ROOM. WILL CONTINUE TO MONITOR AND RETAKE BP IN 30 MINUTES.
--- NOTE | 2019-02-02 19:00 | NUR ---
IN ROOM FOR REPORT, PT IS RESTING WITH EYES CLOSED. RR ARE EVEN AND NONLABORED. CALL LIGHT IS WITHIN REACH.
--- NOTE | 2019-02-02 19:20 | NUR ---
RECHECKED PT BP 111/85. PT STATES THAT SHE IS HAVING NO SYMPTOMS AT THIS TIME. RESTING QUIETLY IN BED WATCHING TV. CALL LIGHT WITHIN REACH. NO NEEDS/CONCERNS AT THIS TIME.
--- NOTE | 2019-02-02 21:15 | NUR ---
AFTER SCANNING MEDICATIONS AND DISCUSSING MEDICATIONS CHANGES PT BECAME UPSET THAT THE DOSE WAS DECREASED. SHE RAISES HER VOICE AND CURSES THROWING THE PILLS THE THE FLOOR. THIS RN PICKED UP THE PILL. PT SAID SHE IS LEAVING. TRIED DISCUSSING THE REASON WHY SHE NEEDS TO STAY BUT SHE DID NOT CARE AND CONTINUED TO GET WORKED UP. IT WAS UNHELPFUL THAT THE PT HAD A VISITOR IN THE ROOM WITH HER WHO WAS GETTING WORKED UP WELL AND SAID IT WAS UNSAFE TO DROP HER DOSES. THIS RN WAS NOT AWARE OF WHEN THIS VISITOR CAME INTO THE ROOM AND TOLD THE VISITOR IT WAS TIME TO LEAVE BECAUSE HE WAS WORKING HER UP. THEY BOTH CONTINUED TO ARGUE AND THE PT WAS SET ON LEAVING. THIS RN LEFT THE ROOM TO CALL DR GIBBONS ABOUT THE SITUATION. RAJAN ACCESSIONER SAID SHE WOULD GO IN AND TALK TO THE PT.
--- NOTE | 2019-02-02 21:20 | NUR ---
SPOKE WITH DR GIBBONS ABOUT THE SITUATION WITH THE PT WANTING TO LEAVE AMA. WE DISCUSSED HOW HER BPS HAVE IMPROVED AND HE IS OK WITH CHANGING HER DOSES BACK TO WHAT THEY ORIGINALLY WERE. HAROON AND ENTERED INTO THE SYSTEM.
--- NOTE | 2019-02-02 21:34 | NUR ---
TALKED WITH PT MALE VISITOR WHO HAS BEEN OFFERING HIS WORDS OF THOUGHT RELATED TO MEDICATION CHANGES, AND HOW NOT HAVING THE METHADONE WILL SEND HER INTO WITHDRAWALS. POSSIBLE VISIOR IS UNDER INFLUENCE BASED ON MOVEMENTS, SPEECH. PT AWARE THAT WILL TAKE A FEW MIN TO GET MEDICATIONS AUTHORIZED BY PHARMACY, BUT QUESTIONED WHEN VISITOR WOULD BE LEAVING. HE IS AWARE VISITING HOURS OVER AT 2030, HE WAS "TUCKING" PT INTO BED, THIS NURSE SAID WELL SHE IS ALREADY IN BED, AND ONCE SHE GETS THE TRAZADONE, SHE WILL NEED LIGHTS OFF TO SLEEP. PT DID NOT SPEAK UP, INSTEAD LAUGHED, WATCHING TV. WILL ENCOURAGE VISITOR TO LEAVE ONCE MEDICATONS ARE ADMINISTERED. PRIMARY RN, AWARE.
--- NOTE | 2019-02-02 21:40 | NUR ---
RAJAN NIEVES RN TALKED WITH PT AND SHE AGREED TO STAY.
--- NOTE | 2019-02-02 21:45 | NUR ---
MEDICATIONS ADMINISTERED PER MARS. MALE FRIEND IN ROOM LEAVING. SUGGESTED A SHOWER, PT AGREED ONCE ABX DONE INFUSING. PLAN TO ADMINISTER VISTERIL ONCE SHOWER COMPLETE PER PT AGREEMENT.
--- NOTE | 2019-02-02 23:30 | NUR ---
ADMINISTERED VISTARIL FOR ANXIETY. PT DENIES FURTHER NEEDS AND SEEMS TO BE CALMED DOWN SINCE HER VISITOR LEFT. CALL LIGHT IS CLOSE.
--- NOTE | 2019-02-03 01:26 | NUR ---
PT IS RESTING WITH EYES CLOSED. RESPIRATIONS ARE EVEN AND NONLABORED. CALL LIGHT IS WITHIN REACH.
--- NOTE | 2019-02-03 04:02 | NUR ---
PT IS RESTING WITH EYES CLOSED, RESPIRATIONS ARE EVEN AND NONLABORED. CALL LIGHT IS WITHIN REACH.
--- NOTE | 2019-02-03 06:25 | NUR ---
PT IS RESTING WITH EYES CLOSED, RESPIRATIONS ARE EVEN AND NONLABORED. CALL LIGHT IS WITHIN REACH.
--- NOTE | 2019-02-03 06:26 | NUR ---
PT ALMOST LEFT AMA TOWARD THE BEGINNING OF THE SHIFT BUT WAS CONVINCED TO STAY FOR TRT ALONG WITH AND INCREASE IN HER MEDICATIONS. SHE IS INDEPENDENT IN THE ROOM. SHE IS ON A REGULAR DIET. DESPITE REPORTS THAT SHE SLEPT MOST OF THE DAYSHIFT SHE DID SLEEP FROM ABOUT 1AM FOR THE REST OF THE NIGHT. RIGHT MIDLINE IS HEPLOCKED AND HAS BLOOD RETURN.
--- NOTE | 2019-02-03 08:30 | NUR ---
PATIENT SITTING UP IN BED WATCHING TV AND EATING BREAKFAST. NICOTINE PATCH PUT ON LEFT SHOULDER. PATIENT DENIES ANY FURTHER NEEDS AT THIS TIME, CALL LIGHT WITHIN REACH.
--- NOTE | 2019-02-03 09:25 | NUR ---
Patient is wake and in her bed, ordered Breakfast for her.
--- NOTE | 2019-02-03 14:21 | NUR ---
MOM CALLED FOR UPDATE ON PT. QUESTIONS AND CONCERNS ADRESSED.
--- NOTE | 2019-02-03 15:54 | NUR ---
PATIENT SITTING IN BED WATCHING TV. ASSESSMENT COMPLETE, NO PAIN REPORTED. DENIES ANY FURTHER NEEDS AT THIS TIME, CALL LIGHT WITHIN REACH.
--- NOTE | 2019-02-03 19:10 | NUR ---
SHIFT REPORT RECEIVED FROM [facility] RN HARLEY AND CHERYL. PT AWAKE AND RESTING IN BED, NO DISTRESS NOTED. PER RN HARLEY, 1800 SCHEDULED VANCO NOT YET GIVEN DUE TO PT REPORTING "PINCHING FEELING AND PRESSURE" WHEN FLUSHED. THIS RN IN ROOM TO ASSESS MIDLINE. MIDLINE PATENT, EASILY FLUSHES. NO BLOOD RETURN. NO REDDNESS, EDEMA, OR SIGNS OF INFILTRATION NOTED. PER [facility] RN'S, RANDA MCGEE TO COME AND ATTEMPT NEW IV PLACEMENT. NO NEEDS AT THIS TIME, CALL LIGHT IN REACH.
--- NOTE | 2019-02-03 19:57 | NUR ---
PM DOSE OF VANCOMYCIN TO BE GIVEN. MIDLINE FLUSHES WELL BUT DOES NOT RETURN BLOOD. PATIENT REPORTS PRESSURE IN HER LEFT AXILLA. GYMNASTICS DONE, STILL NO BLOOD RETURN. DR. GIBBONS NOTIFIED AND ADVISED TO START PERIPHERAL IV IN ORDER TO INFUSE VANCOMYCIN. RANDA MCGEE IN TO ATTEMPT PERIPHERAL IV. MIDLINE IV WILL BE ASSESSED IN MORNING BY PICC RN.
--- NOTE | 2019-02-03 20:15 | NUR ---
RANDA MCGEE IN ROOM TO ATTEMPT NEW IV PLACEMENT. TWO ATTEMPTS UNSUCCESSFUL. DISCUSSED WITH SUPERINTENDENT WATER AND SEWER SYSTEMSRANDA HUFF. CCU RANDA MCINTOSH THEN CONTACTED AND ASKED TO ATTEMPT NEW IV PLACEMENT. PT IS A DIFFICULT STICK WITH HX OF IV DRUG USE. DR GIBBONS AWARE OF SITUATION. WILL REASSESS AFTER RANDA MCINTOSH ATTEMPTS NEW IV PLACEMENT.
--- NOTE | 2019-02-03 20:45 | NUR ---
ATTEMPTS UNSUCCESSFUL BY CCU RN DAYNA. SADDLE LINING STITCHER AND SENIOR JAVA SOFTWARE ENGINEER AWARE. DR GIBBONS ALSO AWARE, PER DR GIBBONS, ALLOW SENIOR JAVA SOFTWARE ENGINEER DIANA ATTEMPT NEW IV PLACEMENT THEN NOTIFY HIM IF PLACEMENT UNSUCCESSFUL. AWAITING ARRIVAL FROM SENIOR JAVA SOFTWARE ENGINEER.
--- NOTE | 2019-02-03 21:00 | NUR ---
PER DR GIBBONS, ATTEMPT SALINE INFUSION TRIAL AND MONITOR FOR EDEMA OR INFILTRATION. IF NO CHANGES TO ARM CIRCUMFERENCE OCCURS AND NO SIGNS OF INFILTRATION OR EDEMA ARE NOTED, THEN OKAY TO RESUME VANCO INFUSION. 50 MLS SALINE INFUSED AT RATE OF SCHEDULED VANCO, CIRCUMFERENCE AT THREE LOCATIONS IN UPPER ARM REMAIN THE SAME BEFORE AND AFTER SALINE INFUSION. DR GIBBONS MADE AWARE, PER MD OKAY TO START VANCO INFUSION.
--- NOTE | 2019-02-03 21:05 | NUR ---
VITALS AND I&OS DONE AND CHARTED. CRACKERS GIVEN PER REQUEST OF PT. BEDSIDE TABLE AND CALL LIGHT IN REACH.
--- NOTE | 2019-02-03 21:15 | NUR ---
CIRCUMFERENCE AT INSERTION SITE REMAINS 25 CMS, VANCO INFUSING AT THIS TIME. NO SIGNS OF INFILTRATION, EDEMA, OR REDDNESS NOTED. SKIN TEMPERATURE REMAINS THE SAME TO BOTH ARMS. DISCUSSED WITH PT TO USE CALL LIGHT IF PT EXPERIENCES BURNING, PAIN, OR ANY KIND OF DISCOMFORT IN RIGHT ARM. PT VERBALIZED UNDERSTANDING. CALL LIGHT IN REACH. ASSESSMENT COMPLETE, SCHEDULED MEDS GIVEN. VSS. PRN TRAZODONE GIVEN PER PT REQUEST. NO FURTHER NEEDS, CALL LIGHT IN REACH.
--- NOTE | 2019-02-03 21:45 | NUR ---
VANCO INFUSING, MIDLINE DRESSING C/D/I. SITE WNL, NO SIGNS OF REDDNESS OR EDEMA NOTED. PT DENIES PAIN, BURNING, PRESSURE, AND PINCHING FEELING IN RIGHT ARM. NO CHANGES IN ARM CIRCUMFERENCE IN THREE MARKED AREAS TO SKIN. PT DENIES NEEDS OR CONCERNS. CALL LIGHT IN REACH.
--- NOTE | 2019-02-03 22:30 | NUR ---
PT RESTING IN BED, EYES CLOSED. RR WNL, AUDIBLE SNORING NOTED. IV VANCO INFUSING, NO NEW CHANGES OR CONCERNS FROM PREVIOUS RN NOTE. CALL LIGHT IN REACH.
--- NOTE | 2019-02-03 23:00 | NUR ---
IV VANCO COMPLETE, MIDLINE DRESSING CDI. NO SIGNS OF INFILTRATION OR EDEMA NOTED. NO REDDNESS OR REPORTS OF BURING OR PAIN FROM PT. MIDLINE FLUSHES EASILY, WHEN INITIALLY FLUSHED, PT DID REPORT SLIGHT FEELING OF PRESSURE IN AXILLARY AREA. RESOLVED AFTER FLSUHING CONTINUED. MIDLINE HEP LOCKED AT THIS TIME. NO ADDITIONAL NEEDS, CALL LIGHT IN REACH.
--- NOTE | 2019-02-04 00:58 | NUR ---
PT RSTING IN BED, EYES CLOSED, RR WNL. PT APPEARS COMFORTABLE, NO DISTRESS NOTED. CALL LIGHT IN REACH.
--- NOTE | 2019-02-04 01:00 | NUR ---
PT RESTING IN BED, EYES CLOSED. NO DISTRESS NOTED, CALL LIGHT IN REACH.
--- NOTE | 2019-02-04 01:42 | NUR ---
SPOKE TO BILL FROM [facility] TO HAVE PT'S IV DEO RETIMED.
--- NOTE | 2019-02-04 03:20 | NUR ---
PT RESTING IN BED, EYES CLOSED. RR WNL, NO DISTRESS NOTED. PT APPEARS COMFORTABLE, NO DISTRESS NOTED. CALL LIGHT IN REACH.
--- NOTE | 2019-02-04 03:30 | NUR ---
UPDATE PROVIDED TO PT'S MOTHER DIANA JORDAN. PT OKAY WITH UPDATE PROVIDED TO MOTHER.
--- NOTE | 2019-02-04 05:15 | NUR ---
IV VANCO INFUSING. MIDLINE DRESSING C/D/I. NO SIGNS OF INFILTRATION OR EDEMA NOTED. SKIN TEMPERATURE THE SAME ON BOTH ARMS. EASILY FLUSHES WITH SALINE, NO BLOOD RETURN NOTED. PT DENIES PAIN, PINCHING, PRESSURE, OR BURNING WHEN FLUSHED. WILL MONITOR. PT INSTRUCTED TO USE CALL LIGHT IF SYMPTOMS DESCRIBED ABOVE OCCUR, THEN NOTIFY NURSING STAFF. PT VERBALIZES UNDERSTANDING. SNACKS PROVIDED PER PT REQUEST. NO FURTHER NEEDS, CALL LIGHT IN REACH.
--- NOTE | 2019-02-04 05:58 | NUR ---
IV VANCO INFUSING, NO SIGNS OF INFILTRATION OR EDEMA NOTED. NO CHANGES REGARDING ARM CIRCUMFERENCE. NO CHANGES BETWEEN ARMS REGARDING SKIN TEMPERATURE. PT REPORTS MINIMAL TINGLING IN FINGERS, COULD BE POSITIONAL PT WAS LAYING ON SIDE. RIGHT SIDE UP. WILL CONTINUE TO MONITOR.
--- NOTE | 2019-02-04 07:08 | NUR ---
IV VANCO COMPLETE. NO SIGNS OF INFILTRATION OR EDEMA NOTED. NO BURING OR FEELINGS OF PRESSURE OR PINCHING NOTED BY PT. SITE FLUSHES WELL, NO BLOOD RETURN NOTED. HEP LOCKED.
--- NOTE | 2019-02-04 07:12 | NUR ---
SPOKE TO LORAINE FROM PHARMACY. PT'S IV VANCO RETIMED DURING THE NIGHT. PT HAD A VANCO TROUGH SCHEDULED FOR 0930. LORAINE MADE AWARE OF VANCO BEING RETIMED AND WILL ADJUST TIME FOR VANCO TROUGH.
--- NOTE | 2019-02-04 08:17 | NUR ---
PT OUT AMBULATING HALLS.
--- NOTE | 2019-02-04 08:40 | NUR ---
AM MEDICATIONS GIVEN, BREAKFAST ORDERED. PATIENT REPORTS NO PAIN, SLEPT WELL OVERNIGHT. NO FURTHER NEEDS AT THIS TIME, CALL LIGHT WITHIN REACH.
--- NOTE | 2019-02-04 09:54 | NUR ---
PICC RN'S IN ROOM TO SEE PATIENT AND ASSESS MIDLINE PLACEMENT DUE TO LACK OF BLOOD RETURN.
--- NOTE | 2019-02-04 09:58 | NUR ---
MIDLINE ASSESSMENT CALLED TO THE MEDICAL SURGICAL FLOOR TO CHECK ON PT'S MIDLINE THE PT REPORTS IT HAS BEEN "PINCHING" AND SHE FEELS "PRESSURE". NO REDNESS OR SWELLING NOTED ON THE PT'S RIGHT ARM OR AROUND THE INSERTION SITE. THE MIDLINE FLUSHES WELL AND PT REPORTS SHE IS NOT CURRENTLY HAVING PAIN AND REPORTS NO PAIN WITH FLUSHING. PT ALSO DENIES HAVING ANY PAIN WITH MEDICATION ADMINISTRATION. ARM CIRCUMFERENCE REMAINS AT 25 CM. PT EDUCATED TO NOTIFY STAFF IF THE PAIN COMES BACK, IF IT BECOMES PAINFUL WITH MEDICATION ADMINISTRATION, OR ANY WORSENING SYMPTOMS. PT STATES UNDERSTANDING. NO FURTHER QUESTIONS AT THIS TIME. NABIL MANUEL RN AT THE BEDSIDE WELL.
--- NOTE | 2019-02-04 13:35 | NUR ---
DEO TOBAR, PT AWAKE IN BED EATING LUNCH. PT MORE ALERT THEN PREVIOUS INTERACTIONS. PT REFUSED TO AMBULATE IN THE HALLS STATING "I BETTER NOT BECAUSE I'LL WALK OUTSIDE AND SMOKE". PT IN GOOD MOOD AT THIS TIME. ICE CREAM AND SODA PROVIDED PER REQUEST. CALL LIGHT IN REACH.
--- NOTE | 2019-02-04 15:25 | NUR ---
DEO COMPLETED. PT SALINE LOCKED AT THIS TIME. CALL LIGHT IN REACH. REFUSING SHOWER AT THIS TIME
--- NOTE | 2019-02-04 18:29 | NUR ---
PATIENT CONTINUES TO RECEIVE IV ABX. PICC RNS ASSESSED HER MIDLINE IV THIS MORNING AND OKAYED USE. PATIENT SLEEPS MOST OF THE DAY AND REFUSES TO PARTICIPATE IN ANY ACTIVITIES, SUCH AMBULATING IN THE HALLS OR GETTING UP TO THE CHAIR FOR MEALS. PATIENT DID AGREE TO SHOWER THIS EVENING. SHE RECEIVED METHADONE THIS MORNING AND A NICOTINE PATCH. SHE AMBULATES INDEPENDENTLY IN THE ROOM, VOIDS WELL, AND HAS BEEN AFEBRILE.
--- NOTE | 2019-02-04 18:56 | NUR ---
RECEIVED REPORT FROM HARLEY RN & CHERYL RN. pt SITTING ON BED WATCHING TV INTENTLY. NO REQUESTS AT THIS TIME. WHITEBOARD UPDATED. PROVIDED WITH CASHO AND JACKA. CALL LIGHT [employer] REACH
--- NOTE | 2019-02-04 20:19 | NUR ---
MD NOTIFIED REGARDING PT'S INTENT TO LEAVE HOSPITAL. PRIMARY RN AND THIS REPRODUCTIVE HEALTHCARE ASSISTANT IN PT'S ROOM. PT STATES SHE WANTS TO SMOKE, DOESNOT THINK SHE CAN HANDLE BEING IN THE HOSPITAL ANYMORE. PT OFFERED NICOTINE REPLACEMENT. PT DECLINES. PT AGREES TO WAIT TO LEAVE UNTIL MD COMES TO TALK TO HER. PT DENIES NEEDS FROM THIS REPRODUCTIVE HEALTHCARE ASSISTANT AT THIS TIME. CALL LIGHT IN REACH.
--- NOTE | 2019-02-04 20:20 | NUR ---
pt EXPRESSED DESIRE TO LEAVE AMA. OLVERA IN ROOM. pt AGREABLE TO STAY UNTIL MORNING WHEN A PLAN CAN BE DISCUSSED TO CONTINUE TREATEMENT OUTPATIENT. NO FURTHER REQUESTS AT THIS TIME. CALL LIGHT WITHIN REACH.
--- NOTE | 2019-02-04 21:15 | NUR ---
ASSESSMENT DONE. MEDICATIONS GIVEN (SEE MAR). SODA PROVIDED. NO FURTHER REQUESTS AT THIS TIME. IV ABX INFUSING. CALL LIGHT WITHIN REACH.
--- NOTE | 2019-02-04 23:02 | NUR ---
IV PUMP BEEPING. HEP LOCKED MIDLINE. pt RESTING WITH EYES CLOSED, NO REQUESTS AT THIS TIME. CALL LIGHT WITHIN REACH.
--- NOTE | 2019-02-05 00:44 | NUR ---
PATIENT ASKED FOR CRACKERS AND PUDDING. PROVIDED.
--- NOTE | 2019-02-05 02:57 | NUR ---
ROUNDED ON pt. REQUESTED ATIVAN, GIVEN (SEE MAR). SODA PROVIDED. NO FURTHER REQUESTS AT THIS TIME. CALL LIGHT WITHIN REACH.
--- NOTE | 2019-02-05 05:00 | NUR ---
ROUNDED ON pt. SITTING IN BED WATCHING TV. IV ABX STARTED (SEE MAR). VOIDING WELL, I&O RECORDED. SODA PROVIDED. NO FURTHER REQUESTS AT THIS TIME. CALL LIGHT WITHIN REACH.
--- NOTE | 2019-02-05 05:18 | NUR ---
pt REQUESTED TO LEAVE AMA AT START OF SHIFT, AGREEABLE TO STAY UNTIL MORNING WHEN AN OUTPATIENT PLAN COULD BE DISCUSSED. IV ABX. AMBULATED X1. INDEPENDENT IN ROOM. TOLERATING REGULAR DIET. USES CALL LIGHT APPROPRIATELY.
--- NOTE | 2019-02-05 06:50 | NUR ---
IV ABX COMPLETE. pt MIDLINE SL. NO REQUESTS AT THIS TIME. CALL LIGHT WITHIN REACH.
--- NOTE | 2019-02-05 07:15 | NUR ---
PATIENT SITTING IN BED WATCHING TV. REPORT RECEIVED. PATIENT DENIES ANY NEEDS AT THIS TIME, CALL LIGHT WITHIN REACH.
--- NOTE | 2019-02-05 09:15 | NUR ---
PATIENT SITTING IN BED WATCHING TV. BREAKFAST DELIVERED. AM MEDICATIONS GIVEN, ASSESSMENT AND VITALS COMPLETE. PATIENT DENIES FURTHER NEEDS AT THIS TIME, CALL LIGHT WITHIN REACH.
--- NOTE | 2019-02-05 12:25 | NUR ---
PATIENT SLEEPING IN BED. AROUSES TO PHYSICAL STIMULATION. LUNCH ORDER PLACED. PAIN ASSESSED, PATIENT REPORTS NO PAIN. NO FURTHER NEEDS AT THIS TIME, CALL LIGHT WITHIN REACH.
--- NOTE | 2019-02-05 17:00 | NUR ---
PATIENT SITTING IN BED, DINNER DELIVERED. IV SALINE LOCKED, ABX FINISHED INFUSING. COLA PROVIDED. DENIES FURTHER NEEDS, CALL LIGHT WITHIN REACH.
--- NOTE | 2019-02-05 19:05 | NUR ---
RECEIVED REPORT FROM RANDA SOUZA.
--- NOTE | 2019-02-05 20:27 | NUR ---
V/S AND I&O TAKEN AND RECORDED. JELLO AND COLA PROVIDED, PER PATIENT'S REQUEST. NO OTHER NEEDS AT THIS TIME.
--- NOTE | 2019-02-05 21:09 | NUR ---
ELECTRICAL INSTALLATION INSPECTOR ROUNDING NOTE. PT RESTING IN BED, REQUESTS ATIVAN. PRIMARY RN NOTIFIED. SCHEDULED AND PRN MEDICATIONS ADMINISTERED. PT REQUESTS A COOKIE, PT INFORMED THAT WE CAN TRY UNSURE OF AVAILIABILITY AT THIS TIME OF NIGHT. PT STATES UNDERSTANDING. DENIES FURTHER NEEDS. AGREES TO CALL FOR NEEDS. CALL LIGHT AND PERSONAL ITEMS IN REACH.
--- NOTE | 2019-02-05 21:11 | NUR ---
ROUNDED ON pt. IV PUMP BEEPING, RESOLVED. pt SITTING IN BED. ASSESSMENT DONE. NO REQUESTS AT THIS TIME. DENIES PAIN. CALL LIGHT WITHIN REACH.
--- NOTE | 2019-02-05 22:40 | NUR ---
IV ALARMING. INFUSION COMPLETE. HEP LOCKED PER PROTOCOL. SETUP pt FOR SHOWER. SODA PROVIDED. NO FURTHER REQUESTS AT THIS TIME. CALL LIGHT WITHIN REACH.
--- NOTE | 2019-02-05 23:34 | NUR ---
pt RETURNED FROM AMBULATING IN HALLS. ANSWERED QUESTIONS ABOUT MIDLINE NO FURTHER REQUESTS AT THIS TIME.
--- NOTE | 2019-02-06 02:14 | NUR ---
ROUNDED ON pt. SITTING IN BED COLORING. BROUGHT SODA, JELLO, AND SHERBERT. NO FURTHER REQUESTS AT THIS TIME. CALL LIGHT WITHIN REACH.
--- NOTE | 2019-02-06 04:21 | NUR ---
ROUNDED ON pt. RESTING IN BED WATCHING TV. PROVIDED SODA. NO FURTHER REQUESTS AT THIS TIME. CALL LIGHT WITHIN REACH.
--- NOTE | 2019-02-06 05:15 | NUR ---
IV ABX STARTED (SEE MAR). pt REQUESTED ATIVAN, GIVEN. PROVIDED WITH EYE MASK KIT. NO FURTHER REQUESTS AT THIS TIME. CALL LIGHT WITHIN REACH.
--- NOTE | 2019-02-06 06:43 | NUR ---
pt DID NOT REST DURING SHIFT. ATIVAN X2. SHOWERED. GOOD APPETITE. USES CALL LIGHT APPROPRIATELY.
--- NOTE | 2019-02-06 07:15 | NUR ---
RECIEVED BEDSIDE REPORT FROM RANDA CLANCY. PT IS WAKING UP, VERY GROGGY, SLURRED SPEACH. REPORT FROM CONCESSION CASHIER IS SHE DIDN'T SLEEP ALL NIGHT, DESPITE GETTING HER PM MEDS. OK TO GO OUTSIDE TO SMOKE PER MD.
--- NOTE | 2019-02-06 08:45 | NUR ---
PT'S PERSONAL CELL PHONE ALARM WENT OFF. PT DIDN'T WAKE UP ENOUGH TO ACKNOWLEDGE ALARM. PT DID FINALLY WAKE UP TO TAKE MEDS. SHE ASKED IF I WAS GOING TO LET THE IT BEEP FOREVER. ONCE SHE REALIZED IT WAS HER PHONE, SHE STUMBLED AND ACKNOWLEDGED IT. ORDER PUT IN FOR PT TO LEAVE THE FACILITY BY . PT ORDERED BREAKFAST HERSELF. PT STILL SLEEPY AND MINIMALLY RESPONSIVE.
--- NOTE | 2019-02-06 12:35 | NUR ---
VISITORS CAME IN TO SEE PT. PT WAS SLEEPING. RN ASKED IF SHE WANTED VISITORS. OTHER STAFF GAVE PERMISSION FOR VISITORS TO GO VISIT.
--- NOTE | 2019-02-06 12:44 | NUR ---
CALLED LAB, THEY HAVE NOT COME TO DRAW THE [address]30 [address]OUGH YET. THEY WILL BE DOWN TO DRAW "SOON".
--- NOTE | 2019-02-06 14:52 | NUR ---
MOM CALLED. SHE IS CONCERNED ABOUT READINESS FOR DISCHARGE. PT WILL BE DISCHARGING TO HER MOM'S HOUSE IN [place]. HER MOM IS WORRIED ABOUT HER RELAPSING WITH DRUG USE ONCE SHE GETS HOME. MOM UNDERSTANDS THAT STAYING CLEAN IS UP TO THE PATIENT AND NO ONE CAN KEEP HER CLEAN EXCEPT HER. RN OFFERED SUPPORT AND LISTENING. MOM HAD QUESTIONS ABOUT THE ABX AND HOW IT WORKED. GAVE INFORMATION ON HOW ABX THERAPY WORKS AND THE IMPORTANCE OF MAINTAINING SCHEDULE AND TAKING MEDS ORDERED. PT HAS BEEN SLEEPING MOST OF THE DAY. WAKES TO VOICE SOMEWHAT, BUT VERY GROGGY.
--- NOTE | 2019-02-06 16:21 | NUR ---
PT SLEEPING SOUNDLY, BREATHING EVEN AND UNLABORED. IV ABX RUNNING PER ORDER.
--- NOTE | 2019-02-06 17:24 | NUR ---
PT SLEPT MOST OF SHIFT AFTER NOT SLEEPING ALL NIGHT. ATTEMPTED TO KEEP HER AWAKE. PT'S MOM CALLED, CONCERNED ABOUT DISCHARGE TOMORROW. MOM IS CONCERNED ABOUT HOW TO KEEP HER INFUSION APPTS (NO CAR AVAILABLE FOR DAILY TRIPS TO HOSPITAL) AND HOW TO KEEP PT FROM RELAPSING.
--- NOTE | 2019-02-06 19:22 | NUR ---
PT CAME TO RN STATION ASKING TO GO OUTSIDE. CALLED TO THE WINE CONSULTANT, SECURITY IS NOT AVAILABLE. PT IS AWARE AND SECURITY WILL COME DOWN WHEN HE IS AVAILABLE. PT HAS FAMILY IN THE ROOM.
--- NOTE | 2019-02-06 19:30 | NUR ---
RECEIVED REPORT FROM RANDA SMITH. pt IN ROOM SITTING ON BED. WHITEBOARD UPDATED. CALL LIGHT WITHIN REACH.
--- NOTE | 2019-02-06 19:41 | NUR ---
PT WENT OUTSIDE WITH VISITOR AND HUMAN RESOURCES SAFETY MANAGER. GUARD WAS TOLD TO KEEP EYES ON PT.
--- NOTE | 2019-02-06 20:54 | NUR ---
ASSESSMENT DONE. DENIES PAIN AT THIS TIME. MEDICATIONS GIVEN SEE MAR. NO REQUESTS AT THIS TIME. CALL LIGHT WITHIN REACH.
--- NOTE | 2019-02-06 22:09 | NUR ---
V/S AND I&O TAKEN AND RECORDED. COLA REGULAR AND JELLO GIVEN PER PATIENT'S REQUEST.
--- NOTE | 2019-02-06 22:46 | NUR ---
RANDA TOLENTINO IN ROOM. IV INFUSION COMPLETE, MIDLINE HEP LOCKED. CALL LIGHT WITHIN REACH.
--- NOTE | 2019-02-07 02:26 | NUR ---
pt AMBULATING WITH SECURITY.
--- NOTE | 2019-02-07 02:36 | NUR ---
pt RETURNED FROM WALK. ATIVAN GIVEN PER REQUEST (SEE MAR). SODA PROVIDED. pt RELATED HAVING A "REALLY BAD DREAM ABOUT BEING HOSPITALIZED, I'M NOT SLEEPING ANY MORE TONIGHT." REPORTED THAT NOTHING HELPS ALLEVIATE DREAMS. NO FURTHER REQUESTS AT THIS TIME. CALL LIGHT WITHIN REACH.
--- NOTE | 2019-02-07 04:05 | NUR ---
pt CALLED. REQUESTED THAT MIDLINE BE SECURED FOR SHOWER. DONE. NO FURTHER REQUESTS AT THIS TIME.
--- NOTE | 2019-02-07 05:20 | NUR ---
GAVE IV ABX. PROVIDED LOTION, SODA, AND JELLO. NO FURTHER REQUESTS CALL LIGHT WITHIN REACH.
--- NOTE | 2019-02-07 06:41 | NUR ---
pt DID NOT REST MUCH DURING SHIFT. REPORTED A NIGHTMARE. AMBULATED X2. SHOWERED. MIDLINE HEP LOCKED, IV ABX. DENIED PAIN DURING SHIFT. USES CALL LIGHT APPROPRIATELY.
--- NOTE | 2019-02-07 07:39 | NUR ---
RECIEVED BEDSIDE REPORT FROM RANDA CLANCY. PT IS SLEEPING. WENT OUT WITHOUT SUPERVISION ONCE OVERNIGHT. SECURITY SAW HER OUTSIDE AND CAME BACK WITH HER PER NIGHT RN.
--- NOTE | 2019-02-07 08:59 | NUR ---
PATIENT WAS DELIVERED A NEWSPAPER
--- NOTE | 2019-02-07 09:06 | NUR ---
PT'S MOM CALLED, SHE HAS CONCERNS ABOUT PT SAFELY DISCHARGING HOME AND BEING ABLE TO GET BACK TO THE HOSPITAL FOR ABX THERAPY. PER MEHRAN, DOCK PUMPER, PT IS NOT DISCHARGING TODAY, SHE WILL BE HERE FOR THE FULL 20 DAYS OF IV ABX THERAPY. ELIGIBLITY WILL BE DETERMINED EVERY [address] GIBBONS, PT CAN GO OUT TO SMOKE. SECURITY OR NURSING QC TECH MUST SUPERVISE HER WHILE SHE IS OFF THE FLOOR. RN CALLED PT'S MOM TO UPDATE HER AND ANSWER HER QUESTIONS.
--- NOTE | 2019-02-07 14:43 | NUR ---
PT IS SLEEPING, AWOKE TO MY NAME-CALLED ME IN. INTRODUCED MYSELF, PT FELL BACK ASLEEP. SEEMINGLY TRIED TO WAKE BACK UP. EXTENDED A BLESSING, WILL FOLLOW NEEDED
--- NOTE | 2019-02-07 16:00 | NUR ---
STAFF STATES THAT PATIENT IS TALKING ABOUT LEAVING. STATE HER MOTHER CALLED AND IS CONCERNED BECAUSE SHE TOLD HER ON THE PHONE SHE MIGHT LEAVE. DR GIBBONS AWARE.
--- NOTE | 2019-02-07 16:22 | NUR ---
PT'S MOM CALLED, PT CALLED HER UPSET, WANTING TO LEAVE. HER MOM WILL COME IN AND SPEND THE NIGHT TO SEE IF THAT WORKS TO KEEP HER HERE. HER MOM ALSO REQUESTED THAT WE FAX INFORMATION TO PT'S P&P OFFICER, ALFONZO DANIELSON. PT SIGNED RELEASE OF INFORMATION TO DISCLOSE INFORMATION OF ADMISSION TO ALFONZO DANIELSON. WILL FAX INFO TO [employer].
--- NOTE | 2019-02-07 16:46 | NUR ---
SPOKE WITH PATIENT IN ROOM AT LENGTH REGARDING HER COMPLAINTS ABOUT STAYING HERE. SHE STATES SHE THOUGHT SHE ONLY HAD TO STAY 7 DAYS, EXPLAINED AGAIN, SHE RECEIVED 7DAYS AUTH AT A TIME FROM INSURANCE BUT TOTAL WAS 20 DAYS OF IV ANTIBIOTICS. WHEN ASKED WHY SHE IS TALKING ABOUT LEAVING, SHE SITES MANY REASONS: BEING LOCKED INSIDE THE BUILDING, NOT BEING ABLE TO GO OUT TO SMOKE WITHOUT PEOPLE, NOT BEING ABLE TO LIVE A NORMAL LIFE, NOT BEING ABLE TO SEE HER DAUGHTER. DISCUSSED THAT IF SHE DOESN'T FINISH THE ANTIBIOTICS SHE COULD GET SICKER, HER HEART COULD BE PERMAMENTLY DAMANGED. DISCUSSED THAT BECAUSE OF HER IV DRUG USE, SHE CANNOT BE SENT HOME WITH IV ACCESS. THAT ALL THESE THINGS WERE DISCUSSED AT ADMIT, AND AGAIN DURING OUR CONVERSATIONS. EXPLAINED THAT IF SHE FEELS SHE NEEDS HELP WITH WITHDRAWL, SHE NEEDS TO TALK WITH DR GIBBONS. PATIENT IS CURSING THROUGH ALL THIS CONVERSATION. SHE CONTINUES TO LAY IN BED HOWEVER. DURING THIS, DR GIBBONS ENTERED THE ROOM. PATIENT WAS VERY SHORT WITH HIM, HE BASICALLY WENT OVER SAME INFORMATION WITH HER. HE DISCUSSED WITH HER HIS RELUCTANCE TO INCREASE MEDICATIONS DUE TO HER SLEEPING A LOT AND LOWER BLOOD PRESSURES. WHEN HE WAS TALKING SHE USED CURSE WORDS AND SAID HE "MISE WELL GET OUT OF MY ROOM". AGAIN, HE STATED HE WANTED HER TO STAY AND CONTINUE TREATMENT BEFORE LEAVING ROOM. I DISCUSSED WITH PATIENT THAT SHE SEEMS ANGRY, BUT THAT WE ARE TRYING TO HELP HER AND HOPE SHE STAYS. AGAIN WENT OVER THE DAMAGE THAT COULD HAPPEN IF THE INFECTION IS NOT TREATED FULLY. PATIENT ROLLED OVER IN BED AND STATED "THANKS, I GET IT". ASKED IF SHE WOULD BE WILLING TO TALK WITH SOMEONE FROM [employer] TO TALK WITH SOMEONE WHO REALLY WOULD UNDERSTAND HOW SHE FEELS WITH HAVING ADDICTIONS, SHE STATES "NO THANKS".
--- NOTE | 2019-02-07 16:51 | NUR ---
INFORMATION FAXED. CONSENT PLACED IN CHART.
--- NOTE | 2019-02-07 17:57 | NUR ---
PT SLEPT MOST OF DAY. BECAME MORE INTERACTIVE IN THE AFTERNOON. REQUESTED TO WALK OUTSIDE, SECURITY IS NOT AVAILABLE AT THIS TIME. PT'S MOM CALLED ASKING TO FAX INFORMATION TO PT'S PAROL OFFICER. INFORMATION FAXED.
--- NOTE | 2019-02-07 18:06 | NUR ---
SECURITY ADVISED THEY ARE UNABLE TO TAKE PT OUT TO SMOKE. IT IS AGAINST THEIR POLICY OF BEING AVAILABLE. MEHRAN NIEVES RN, TALKED TO WATER RESOURCES TECHNICAL OFFICER WHO SAID NURSING CAN TAKE PT OUT. THIS RN CALLED DR GIBBONS WHO SAID IF SECURITY IS NOT ABLE TO TAKE PT OUT TO SMOKE THAN SHE CAN NOT GO OUT, USE NICOTINE LOZENGE OR PATCH. THIS RN DECLINED TO TAKE PT OUT CITING SAFETY REASONS. DIRECTOR OF ASSESSING TOOK PT OUT.
--- NOTE | 2019-02-07 19:24 | NUR ---
CHARGE NURSE REPORT RECEIVED FROM MEHRAN. PT IN BED, EYES CLOSED, LAYING ON RIGHT SIDE.
--- NOTE | 2019-02-07 19:52 | NUR ---
RECEIVED REPORT FROM DAY SHIFT RN. PATIENT IS RESTING IN BED WITH EYES CLSOED, RR 17. CALL LIGHT IN REACH.
--- NOTE | 2019-02-07 21:29 | NUR ---
VERIFIED WITH DR GIBBONS, PT IS NOT TO GO OUT AND SMOKE WITH NURSING STAFF. IF PT GETS UPSET AND WANTS TO LEAVE, HE SAID THAT IS FINE, WILL BE GOING AGAINST MEDICAL ADVICE. JUST REMOVED THE MIDLINE SHOULD SHE LEAVE. AT THIS TIME, SHE HASN'T REQUESTED TO GO SMOKE.
--- NOTE | 2019-02-07 21:45 | NUR ---
PATIENT IS RESTING IN BED WATCHING TV. PATIENTS SCHEDUL;ED ABX GIVEN PER ORDER AND IS INFUSING IN MIDLINE PER ORDER. PATIENT DENIES ANY PAIN. PATIENT IS REQUESTING TRAZADONE AND MEDICATION FOR ANXIETY. PATIENT GIVEN TRAZADONE PER ORDER. PATIENT GIVEN PRN VISTARIL PER ORDER. PATIENT EXPRESSES FRUSTRATION IN NOT BEING GIVEN ATIVAN. PATIENT EDUCATED ON GIVING MEDICATIONS PER DRS ORDERS AND THAT ONE IS ORDERED TO BE GIVEN BEFORE THE OTHER. PATIENT APPEARS UPSET AND STATED "THATS FUCKING STUPID". REASSURED PATIENT THAT THIS MEDICATION SHOULD HELP HER ANXIETY. PATIENT TOOK VISTARIL. PATIENTS SCHEDULED MEDICATIONS GIVEN PER ORDER. PATIENT IS REFUSING TO ANSWER QUESTIONS AT THIS TIME. ASSEMSNET COMPLETED. CALL LIGHT IN REACH.
--- NOTE | 2019-02-07 22:40 | NUR ---
PATIENT IS RESTING IN BED WITH EYES CLOSED, RR 17. CALL LIGHT IN REACH.
--- NOTE | 2019-02-07 23:44 | NUR ---
PATIENTS IV ABX COMPLETED INFUSING. PATIENT IS RESTING IN BED WATCHING TV. PATIENT REQUESTED JELLO. PATIENT PROVIDED WITH JELLO. PATIENTS MIDLINE IS NOW HEPLOCKED. NO FURTHER NEEDS NOTED. CALL LIGHT IN REACH.
--- NOTE | 2019-02-08 01:13 | NUR ---
PATIENT IS RESTING IN BED WITH EYES CLSOED, RR 17. CALL LIGHT IN REACH.
--- NOTE | 2019-02-08 03:13 | NUR ---
PATIENT IS RESTING IN BED WITH EYES CLOSED, RR 16. CALL LIGHT IN REACH.
--- NOTE | 2019-02-08 05:14 | NUR ---
PATIENT RESTED WELL THROUGHOUT THE SHIFT. PATIENT IS ON A REGULAR DIET, TOLERATING IT WELL, AND NO COMPLAINTS OF NAUSEA NOTED. PATIENT HSA DENIED ANY PAIN. PATIENT RECEIVED PRN ANXIETY MEDICATION PER ORDER. PATIENT IS INDEPNDENT IN THE ROOM. PATIENTS MIDLINE IN RIGHT UPPER ARM IS HEPLOCKED WHEN NOT IN USE. PATIENT IS AAOX3 AND CALLS APPROPRIATELY. PATIENT IS ON SWING BED STATUS.
--- NOTE | 2019-02-08 05:32 | NUR ---
PATIENT IS RESTING IN BED WATCHING TV. PATIENT DENIES ANY PAIN. PATIENTS IV ABX INFUSING PER ORDER. PATIENT PROVIDED WITH FRESH ICE WATER. PATIENT PROVIDED WITH SEVEN UP. NO FURTHER NEEDS NOTED. CALL LIGHT IN REACH. INTAKE AND OUPUT RECORDED.
--- NOTE | 2019-02-08 07:36 | NUR ---
Pt in bed sleeping at this time, respirations are even and non labored. IV sl at this time. Pt has no notable distress. Personal supplies and call light within reach.
--- NOTE | 2019-02-08 09:25 | NUR ---
Pt requested Ativan. Order states try vistaril first, then Ativan. Told pt that because she last had ativan I could only give the vistaril at this time. Pt expressed frusteration regarding this; she states to this RN "this is fucking stupid, stupid fucking doctor"..."sorry, i'm not mad at you, this is just fucking stupid". Pt states she will still take the vistaril however, she reports "it doesn't work". Vistartil 50mg po admin at this time per her request. Education provided to pt regarding medications and plan of care. Pt at times verbally responds, other times she does not. Education continued for plan of care. Respirations are even and non labored. Heart sounds regular R/R. Pt denies needs at this time. Breakfast ordered. No visitors in room at this time.
--- NOTE | 2019-02-08 13:21 | NUR ---
Pt awake, sitting up in bed eating lunch at this time. Pt's respirations are even and non labored. Pt denies needs. Personal supplies and call light clairein reach.
--- NOTE | 2019-02-08 15:23 | NUR ---
Pt sleeping on/off through this shift. Pt denies pain. Pt has no needs at this time. Call light within reach. No visitors seen thus far in shift.
--- NOTE | 2019-02-08 21:43 | NUR ---
PATIENT INDEPENDENT IN ROOM PATIENT REQUESTED ATIVAN, BUT THEN CHANGED HER MIND AND IT WAS RETURNED WITH RANDA TOLENTINO CHARGE NURSE. PATIENT HAS NO PAIN AND HAS NO NEEDS, CALL LIGHT IN REACH AND WILL CALL IF SHE NEEDS ANYTHING.
--- NOTE | 2019-02-08 22:43 | NUR ---
GAVE JELLO AND COLA PER PATIENT'S REQUEST.
--- NOTE | 2019-02-08 23:10 | NUR ---
PATIENT HAVING NO PAIN AND IS ON THE PHONE. VANCO DONE. MIDLINE HEPLOCKED PER PROTOCOL AFTER BEING FLUSHED WITH 20MLS NS. LIGHTS TURNED DOWN, CALL LIGHT IN REACH, PATIENT STILL ON THE PHONE, THIS NURSE EXITED THE ROOM AFTER MAKING SURE PATIENT HAD NO NEEDS.
--- NOTE | 2019-02-08 23:26 | NUR ---
PATIENT JUST CALLED AND WANTS TO GO OUT AND SMOKE NO OR SHE IS LEAVING THE HOSPITAL. CALLED DR. GIBBONS AND HE GAVE ME ORDERS TO PULL THE MIDLINE AND HAVE THE PATIENT SIGNOUT AMA AND PULL THE MIDLINE AND MAKE SURE IT IS BANDAGED AND NOT BLEEDING WHEN SHE LEAVES. I READ BACK THESE INSTRUCTIONS AND VERBALIZED UNDERSTANDING.
--- NOTE | 2019-02-08 23:45 | NUR ---
PT WANTED TO SMOKE, ORDERS TO NOT SMOKE. DISCUSSED WITH PT OPTIONS, SHE ASKED QUESTIONS, ANSWERED. SHE IS CHOSING TO LEAVE AGAINST MEDICAL ADVISE. SHE IS AWARE SHE WILL NEED TO SEE HER PHYSICIAN, "DR ESPINAL" FOR MEDICAL FOLLOWUP, SHE IS AWARE THAT SHE WILL NEED TO SEEK MEDICAL CARE IF SYMPTOMS RETURN, OR OTHER CONCERNS SHE MAY HAVE. ADVISED HER TO NOT USE IV DRUGS, SHE STATES SHE HASN'T PLANNED TO, STATED IF SHE WANTED DRUGS SHE COULD HAVE THEM "WAITING IN THE PARKING LOT FOR HER". SHE STATED SHE DID NOT WANT INFORMATION GIVEN OUT TO ANYONE WHO CALLS, ESPECIALLY HER MOTHER, WHOM SHE SAID WOULD BE REALLY UPSET. SUGGESTED SHE CALL HER MOM IN THE MORNING AND LET HER KNOW SHE WAS DISCHARGED SO HER MOM KNOWS. PRIMARY RN AWARE.
--- NOTE | 2019-02-09 00:24 | NUR ---
PATIENT SIGNED THE AMA FORM AFTER THIS NURSE INFORMED HER OF HER DX, RISKS OF FURTHER COMPLICATIONS, WORSENING HEALTH, THE RISK OF BLEEDING, AND THERE WAS EVEN THE RISK OF . INFORMED HER TO RETURN TO THE ER FOR ANY SYMPTOMS AND IF SHE HAD ANY BLEEDING, AND THE RISKS OF SEVERE HARM TO HER HEALTH IF SHE USED ANY MORE ILLEGAL DRUGS LIKE HEROIN OR METH. PATIENT VERBALIZED UNDERSTANDING OF THESE WARNINGS AND WHEN ASKED IF SHE STILL WANTED TO PROCEED SHE SAID,"YES." SHE ALSO SAID,"MY MOM IS GOING TO BE SO PISSED AT ME." I INFORMED HER I AM OLD ENOUGH TO BE HER FATHER I WOULD ALSO BE GREATLY CONCERNED A PARENT WELL ME BEING CONCERNED OF THIS DECISION BEING HER NURSE. PATIENT STILL CHOSE TO PROCEED. PATIENT SIGNED AMA FORM FIRST AND I SIGNED IT RIGHT AT MIDNIGHT GOING INTO 02/09/19. MIDLINE PULLED INTACT AT THIS TIME AND 1BOX OF 4X4'S FOLDED IN HALFAND PLACED OVER MIDLINE INSERTION SIGHT AND DIRECT PRESURE HELD FIRMLY WITH BOTH HANDS FOR 5 MINUTES AND THEN WRAPPED THE 4X4'S IN [place]. PATIENT ABLE TO FEEL HER HAND AND CAP REFILL TO ALL RIGHT HAND FINGER LESS THAN 2 SECONDS. INFORMED PATIENT TO LEAVE THE BANDAGE ON FOR AT LEAST 30MINUTES. PATIENT GIVEN HER COPY OF THE AMA FORM AND I WALKED HER TO THE FRONT DOOR WHERE SHE GOT IN A GAYLE 3500 TRUCK WITH A MAN WHO APPEARED CONSIDERABLY OLDER THAN THE PATIENT. THE MAN IN THE TRUCK ASKED ME,"IS SHE STABLE ENOUGH TO LEAVE THE HOSPITAL, SHOULD SHE BE DOING THIS." I INFORMED THE GENTLEMAN THAT THE PATIENT IS OF AGE AND I COULD NOT GIVE HIM ANY INFORMATION WITHOUT THE PATIENT'S CONSENT, WHICH SHE DID NOT GIVE. SHE TOLD HIM,"I AM FINE, DON'T WORRY ABOUT IT," AND THEY DROVE OFF THE HOSPITAL PROPERTY AND I RETURNED TO MED/SURG. THIS NURSE SIGNED AMA FOR AT 0000
== END 2019-02-09 00:11 | disposition left against medical advice (07) | DRG 289 ==
LOC: MS 14:07
PROVIDERS: ADMIT Internal Medicine
PROC: 05HY33Z Insertion of Infusion Device into Upper Vein, Percutaneous Approach (ICD-10-PCS; principal; 2019-01-31 17:00)
DX: I33.0 Acute and subacute infective endocarditis (principal); F11.23 Opioid dependence with withdrawal; B95.62 Methicillin resistant Staphylococcus aureus infection as the cause of diseases classified elsewhere; F15.10 Other stimulant abuse, uncomplicated; F17.210 Nicotine dependence, cigarettes, uncomplicated; Z88.5 Allergy status to narcotic agent; Z53.29 Procedure and treatment not carried out because of patient's decision for other reasons
CPT/HCPCS: 36415; 36569; 80048; 80076; 80202; 82565; 84520; 99406; J3370; J7060; Q0177

== ENCOUNTER 2020-09-07 22:59 | Emergency (ER) | payer OTHER ==
[~2020-09-07] VITALS: Ht 170.2 cm; Wt 63.5 kg
[~2020-09-07 22:59] MED LIST changes: +ATIVAN1 MG PO; +CUBICIN RF500 MG IV; +METHADONE HCL5 MG PO; +TRAZODONE HCL50 MG PO
--- NOTE | 2020-09-08 15:20 | EKG ---
[facility] [address] [place] [address] Signed Sinus tachycardia Septal infarct (cited on or before 18-JAN-2019) Abnormal ECG When compared with ECG of 18-JAN-2019 19:54, Nonspecific T wave abnormality now evident in Inferior leads Nonspecific T wave abnormality has replaced inverted T waves in Lateral leads Confirmed by SANA GIBBONS MD ([id number]) on 09/08/2020 3:20:17 PM Electronically Signed By: SANA GIBBONS MD 09/08/20 1520 PATIENT NAME: LUBA SEBASTIAN Electrocardiogram DATE OF : [birth year] PHYSICIAN: SANA GIBBONS MD REPORT #: [id number] REPORT IS CONFIDENTIAL AND NOT TO BE RELEASED WITHOUT AUTHORIZATION
== END 2020-09-08 01:27 | disposition home or self-care (01) ==
LOC: ED 22:59
DX: T50.901A Poisoning by unspecified drugs, medicaments and biological substances, accidental (unintentional), initial encounter (principal); E03.9 Hypothyroidism, unspecified; F17.200 Nicotine dependence, unspecified, uncomplicated; Z88.5 Allergy status to narcotic agent
CPT/HCPCS: 80053; 80176; 81001; 84443; 84703; 85025; 93005; 93010; 99284-25; J7030

== ENCOUNTER 2021-01-22 17:45 | Emergency (ER) | payer SELFPAY ==
[~2021-01-22] VITALS: Ht 170.2 cm; Wt 63.5 kg
[2021-01-22] MEDS ORDERED: CEPHALEXIN500 MG PO (21:57)
[2021-01-22] MEDS ORDERED: ZOFRAN4 MG PO (21:57)
[2021-01-22] MEDS ORDERED: POTASSIUM CHLO20 ME1 PO (21:57)
== END 2021-01-22 22:26 | disposition home or self-care (01) ==
LOC: ED 17:45
DX: A41.9 Sepsis, unspecified organism (principal); R65.20 Severe sepsis without septic shock; N39.0 Urinary tract infection, site not specified; E87.6 Hypokalemia; F19.10 Other psychoactive substance abuse, uncomplicated; F17.200 Nicotine dependence, unspecified, uncomplicated; Z88.8 Allergy status to other drugs, medicaments and biological substances; Z20.822 Contact with and (suspected) exposure to COVID-19
CPT/HCPCS: 71045; 80053; 81001; 83605; 84703; 85025; 96372; 99285-25; C9803; J0696; J7030; U0003

== ENCOUNTER 2022-08-16 15:59 | Emergency (ER) | payer OTHER ==
[~2022-08-16] VITALS: Ht 170.2 cm; Wt 63.5 kg
[~2022-08-16 15:59] MED LIST changes: +POTASSIUM CHLO20 ME1 PO; +ZOFRAN4 MG PO
--- OUTSIDE RECORDS SUMMARY | 2022-08-16 16:06 | XMS ---
PreManage Notification: LUBA SEBASTIAN Security Net Application Architect Events No recent Security Events currently on file CRITERIA MET - [facility] - 2 Visits in 30 Days CARE PROVIDERS -[place]- Dentist: External Relations Director [facility] PHONE: [phone] NORM DO Family Medicine 02/01/2019-Current PHONE: Unknown ABBIE ESPINAL [facility] Current PHONE: [phone] ABBIE ESPINAL Dentist: External Relations Director 02/25/2019-Current PHONE: [phone] JASMINE WHYTE Internal Medicine: Pulmonary Disease 03/22/2018-Current PHONE: Unknown Lesly has no Care Guidelines for this patient. Care History Medical/Surgical 09/11/2020 [facility] HAS TRIED TO MAKE CONTACT WITH PATIENT- NOT ABLE TO CONTACT - LEFT MESSAGES WITH NO RETURN CALL. 02/28/2019 [facility] - PATIENT HAS AN APT WITH DR ESPINAL ON Thursday03/02/19 @ 8:20AM. 01/20/2019 [facility] - [facility] REFERRAL MADE- DUE TO PATIENT DECLINING SERVICES/HELP FROM [facility]. [place] VISIT COUNT (12 MO.) 1 Zachery Dominguez 2 [facility]. TOTAL 3 NOTE: Visits indicate total known visits. ED/C VISIT TRACKING (12 MO.) 08/16/2022 16:00 BRIAN Rosario TYPE: Emergency COMPLAINT: - SORE THROAT 08/16/2022 15:04 BRIAN Porras [place] TYPE: Emergency COMPLAINT: - SORE THROAT 12/24/2021 18:53 Zachery ONOFRE [place] TYPE: Emergency DIAGNOSES: - Other stimulant use, unspecified with intoxication, unspecified - Allergic Reaction INPATIENT VISIT TRACKING (12 MO.) No inpatient visits to display in this time frame [email or web address]
== END 2022-08-16 17:50 | disposition home or self-care (01) ==
LOC: ED 15:59
DX: J02.9 Acute pharyngitis, unspecified (principal); Z88.5 Allergy status to narcotic agent
CPT/HCPCS: 87081; 87880; 99283; A9270; J8540

== ENCOUNTER 2022-09-19 11:50 | Day surgery (SDC) | payer OTHER ==
[2022-09-11 14:44] VITALS: BP 117/79
[~2022-09-19] VITALS: Ht 170.2 cm; Wt 61.4 kg
[2022-09-19 12:08] VITALS: BP 113/74
--- NOTE | 2022-09-19 13:10 | NUR ---
1242: PATIENCE GREGORIO CRNA CALLED AND UPDATED ABOUT PT'S CARDIAC HX AND DRUG USE. EKG ORDERED AND ELECTROTYPE MOLDER WOULD LIKE ECHO REPORTS FROM [facility] IF AVAILABLE. 1246: DR. ANTONIO UPDATED. 1247: [facility]ICAL RECORDS CALLED ABOUT PREVIOUS ECHO REPORTS. WILL FAX OVER. 1250: PT REPORTS SHE HAS NO ISSUES WITH CHEST PAIN/ PRESSURE, PALPITATIONS, OR OTHER CARDIAC CONCERNS.
--- NOTE | 2022-09-19 13:15 | NUR ---
LE 1245: LAB CALLED ASKING HOW MANY DAYS THE TOXICOLOGY SCREENING WILL SHOW POSITIVE FOR METH. LAB REPORTS 3-5 DAYS. BRATTICE BUILDER DOES NOT WANT TOX SCREEN ORDERED.
--- NOTE | 2022-09-19 14:24 | NUR ---
DR. ANTONIO AT THE BEDSIDE TO TALK WITH THE PT ABOUT SURGERY.
--- NOTE | 2022-09-19 15:32 | NUR ---
09/19/22 1532 Sam,Mikaela 1518 PT ARRIVED TO PACU ON 8L VIA MASK, RESP SHALLOW BUT EVEN AND UNLABORED. JAW THRUST USED TO MAINTAIN AIRWAY. 1522 O2 DECREASED TO 6L. 1528 PROGRAMMING DIRECTOR PLACED ORAL AIRWAY, JAW THURST NO LONGER NEEDED. PT REMAINS ASLEEP.
[2022-09-19] MEDS ORDERED: ACETAMINOPHEN500 MG PO (15:33)
[2022-09-19] MEDS ORDERED: IBUPROFEN600 MG PO (15:33)
[2022-09-19] MEDS ORDERED: HYDROCODON-ACE1 EA10 PO (15:33)
[2022-09-19 16:45] VITALS: BP 101/65
--- NOTE | 2022-09-19 17:00 | NUR ---
LE 1620 PATIENT INTO ROOM 6. VITAL SIGNS COMPLETE. PATIENT DROWSY IN BED AT THIS TIME. BREATHING EQUAL AND UNLABORED. OXYGEN SATURATIONS ABOVE 90% ON ROOM AIR. PATIENT DENIES PAIN OR BEING NAUSEATED AT THIS TIME. SURGICAL DRESSING IS CLEAN, DRY AND INTACT. SCD'S ON. IVF INFUSING. PATIENT GIVEN WATER AND PUDDING. LE 1630 PATIENT INSISTS "I WANT TO LEAVE NOW." WHILE PATIENT TAKING SCD'S OFF. PATIENT RIDE CALLED. LE 1645 PATIENT IV D/C'D WNL. PATIENT DENIES ANY PAIN OR BEING DIZZY. PATIENT DENIES BEING NAUSEATED. BREATHING EQUAL AND UNLABORED. OXYGEN SATURATIONS ABOVE 90% ON ROOM AIR. DISCHARGE INSTRUCTIONS GIVEN. EXPLAINED TO PATIENT IMPORTANCE OF NOT USING SUBSTANCES METH, FENTYNAL OR ANY OTHER OPIATES. EXPLAINED THE RISK OF RESPIRATORY DEPRESSION AND IF OPIATES USED. PATIENT VERBALIZED UNDERSTANDING. NO QUESTIONS AT THIS TIME. PERSCRIPTION GIVEN TO PATIENT. PATIENT WHEELED OUT OF FACILITY TO PRIVATE AUTO WITH JAE. NO FUTHER NEEDS.
--- NOTE | 2022-09-19 18:47 | EKG ---
[facility] [address] [place] [address] Signed Normal sinus rhythm Possible Anteroseptal infarct (cited on or before 18-JAN-2019) Abnormal ECG When compared with ECG of 07-SEP-2020 23:21, Vent. rate has decreased BY 45 BPM Nonspecific T wave abnormality no longer evident in Inferior leads Nonspecific T wave abnormality no longer evident in Lateral leads Confirmed by DAVID GRECO MD ([id number]) on 09/19/2022 6:47:30 PM Electronically Signed By: DAVID GRECO MD 09/19/22 1847 PATIENT NAME: LUBA SEBASTIAN Electrocardiogram DATE OF : [birth year] PHYSICIAN: DAVID GRECO MD REPORT #: [id number] REPORT IS CONFIDENTIAL AND NOT TO BE RELEASED WITHOUT AUTHORIZATION
--- NOTE | 2022-09-20 11:21 | OR ---
[facility] [address] [place], [place] [address] Signed DATE OF OPERATION: 09/19/2022 SURGEON: Nilesh Antonio MD PREOPERATIVE DIAGNOSIS: Left upper outer quadrant breast mass. POSTOPERATIVE DIAGNOSIS: Left upper outer quadrant breast mass, probable fibroadenoma. PROCEDURE: Open excision of left upper outer quadrant breast mass. ANESTHESIA: Intravenous sedation with local, Chris Kathy, PIT LABORER, Marcaine 0.25% with epinephrine 10 mL. INDICATION: This 32-year-old woman is a patient of Dr. Espinal and Dr. Kyleigh Zimmerman and was here for evaluation of a breast mass in the upper outer quadrant. A biopsy performed by image guidance was considered "benign." There remained a lump. There was thought to be cystic changes. She has family history of breast cancer in a maternal grandmother. 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 The mass was considered "complex" based on mammogram of April 24. She is here to undergo excision of the mass for definitive diagnosis and treatment. She understands the risk of bleeding, infection, cosmetic deformity, and so on. FINDINGS: Mass was excised entirely and was consistent with a fibroadenoma. There was no complexity to the mass that I could see. There were no other remaining masses of the breast. DESCRIPTION OF PROCEDURE: The patient was brought to the operating room, given intravenous sedation based on her chemical dependency profile and avoidance of general anesthesia on this occasion per Anesthesia preference. She is given preoperative antibiotic Ancef. Sequential compression device stockings were used, heparin subcutaneously administered and preoperative antibiotic Ancef given. A palpable mass in the upper outer aspect of the Electronically Signed By: NILESH ANTONIO MD 09/20/22 1121 PATIENT NAME: LUBA SEBASTIAN OPERATIVE REPORT DATE OF : [birth year] REPORT #: [id number] PHYSICIAN: NILESH ANTONIO MD PCP: ABBIE EPSINAL MD REPORT IS CONFIDENTIAL AND NOT TO BE RELEASED WITHOUT AUTHORIZATION [facility] [address] [place], [place] [address] Signed left breast was easily identified. The breast was prepared with a chlorhexidine solution and draped sterilely. The area in question was isolated and 5 mL of 0.25% Marcaine with epinephrine was injected directly over the site. A curvilinear incision was made along the line of skin tension in the upper outer aspect. Dissection was carried through the dermis sharply. With various manipulations, the mass could be easily identified and felt and a 2-0 silk suture was passed through the mass providing a handle to it. The surrounding breast parenchyma was excised with electrocautery around it. Additional local anesthetic was given as needed. Ultimately, the mass was completely excised. It measured approximately 2.5 cm in size and was highly consistent with benign fibroadenoma. The wound was closed in layers with 2-0 Vicryl and a running subcuticular 3-0 Vicryl for the skin. Steri-Strips were applied as was an Acticoat dressing. She tolerated the procedure well. Nilesh Antonio MD JM/MODL /[id number] cc: MD Kyleigh Churchill MD Copies: ABBIE ESPINAL DMD, PATRICIA J MD ~ Electronically Signed By: NILESH ANTONIO MD 09/20/22 1121 PATIENT NAME: LUBA SEBASTIAN OPERATIVE REPORT DATE OF : [birth year] REPORT #: [id number] PHYSICIAN: NILESH ANTONIO MD PCP: ABBIE ESPINAL MD REPORT IS CONFIDENTIAL AND NOT TO BE RELEASED WITHOUT AUTHORIZATION
--- NOTE | 2022-09-23 12:24 | PATH ---
[facility] [address] [place], [place] [address] Signed SPECIMEN(S): A LEFT UPPER OUTER QUADRANT BREAST SPECIMEN SOURCE: A. LEFT UPPER OUTER QUADRANT BREAST CLINICAL HISTORY: Excision of left breast cystic mass. FINAL PATHOLOGIC DIAGNOSIS: Left upper outer quadrant breast: - Fibroadenoma, benign. - Adenosis and fibrocystic changes, negative for atypical features or evidence of malignancy. JVR:[facility]:C2NR MICROSCOPIC EXAMINATION: Histologic sections of all submitted blocks are examined by light microscopy. These findings, together with the gross examination, support the pathologic diagnosis. A Smooth Muscle Myosin immunostain is performed with appropriate controls on block (A4) and is positive in the area of concern, supporting the diagnosis. A P63 immunostain stain is performed with appropriate controls on block (A7) and is positive in the area of concern, supporting the diagnosis. JVR:[facility] GROSS DESCRIPTION: The specimen, labeled and designated "Margaret Sebastian," and designated on the requisition "left upper outer quadrant breast mass," is received in formalin and consists of an unoriented portion of fibroadipose tissue (15 g, 3.7 x 3.5 x 1.9 cm). The specimen is inked blue and serially sectioned to reveal a yellow-joaquin, fatty to white-joaquin, dense fibrous cut surface (80% fibrous). A white-joaquin, ill-defined, nodular area (1.4 x 1.4 x 1.2 cm) is located 0.2 cm from the inked margin. The specimen is submitted entirely in cassettes (A1-A10). Cold ischemic time: Cannot be calculated The tissue was fixed in formalin for at least 6 and less than 24 hours AC (under the direct supervision of a pathologist) The Gross Description was prepared using a voice recognition system. The report was reviewed for accuracy; however, sound-alike word errors, addition and/or deletions may occur. If there is any question about this report, please contact Client Services. PATIENT NAME: LUBA SEBASTIAN PATHOLOGY DATE OF : [birth year] REPORT #: [id number] PHYSICIAN: ALICE DE LA CRUZ PCP: ABBIE ESPINAL MD REPORT IS CONFIDENTIAL AND NOT TO BE RELEASED WITHOUT AUTHORIZATION [facility] [address] [place], [place] [address] Signed ADDITIONAL NOTES: Immunohistochemical and/or in situ hybridization studies were performed on this case with the appropriate positive controls that react as expected. This test was developed and its performance characteristics determined by [facility]. It has not been cleared or approved by the U.S. Food and Drug Administration. The FDA has determined that such clearance or approval is not necessary. This test is used for clinical purposes. It should not be regarded as investigational or for research. [facility] is certified under the Clinical Laboratory Improvement Amendments of 1988 (CLIA) as qualified to perform high complexity clinical laboratory testing. This assay has not been validated for specimens that have been decalcified. PERFORMING LABORATORY: The technical component was performed by [facility], [address] [place] [id number] (CLIA# [id number]). Professional interpretation was performed by [facility], [address] [place] [id number] (CLIA#: [id number]). Diagnostician: Ben Florence MD Pathologist Electronically Signed 09/23/2022 Copies: ~ PATIENT NAME: SEBASTIANLUBADARIEL ALBERT PATHOLOGY DATE OF : [birth year] REPORT #: [id number] PHYSICIAN: ALICE DE LA CRUZ PCP: ABBIE ESPINAL MD REPORT IS CONFIDENTIAL AND NOT TO BE RELEASED WITHOUT AUTHORIZATION
== END 2022-09-19 18:42 | disposition home or self-care (01) ==
LOC: DS 11:50
PROVIDERS: ATTEND Surgery
PROC: 0HBU0ZX Excision of Left Breast, Open Approach, Diagnostic (ICD-10-PCS; principal; 2022-09-19 13:15)
DX: D24.2 Benign neoplasm of left breast (principal); N60.22 Fibroadenosis of left breast; Z80.3 Family history of malignant neoplasm of breast
CPT/HCPCS: 93005; 93010; J0690; J1100; J1644; J1885; J2250; J2704; J3010; J7121

== ENCOUNTER 2023-05-07 04:35 | Emergency (ER) | payer OTHER ==
[~2023-05-07] VITALS: Ht 170.2 cm; Wt 61.6 kg
[~2023-05-07 04:35] MED LIST changes: +ACETAMINOPHEN500 MG PO; +HYDROCODON-ACE1 EA10 PO; +IBUPROFEN600 MG PO
[2023-05-07] MEDS ORDERED: BACTRIM DS TAB1 EACH PO (04:54)
[2023-05-07] MEDS ORDERED: TRAMADOL HCL50 MG PO (04:54)
[2023-05-07 05:05] VITALS: BP 136/89
== END 2023-05-07 05:06 | disposition home or self-care (01) ==
LOC: ED 04:35
DX: L03.116 Cellulitis of left lower limb (principal); F17.200 Nicotine dependence, unspecified, uncomplicated; Z88.5 Allergy status to narcotic agent
CPT/HCPCS: 99283; A9270

== ENCOUNTER 2023-10-16 15:01 | Emergency (ER) | payer OTHER ==
[~2023-10-16] VITALS: Ht 170.2 cm; Wt 59.6 kg
[2023-10-16] MEDS ORDERED: BACTRIM DS TAB1 EACH PO (17:12)
[2023-10-16] MEDS ORDERED: CEPHALEXIN500 M1 PO (17:12)
[2023-10-16 17:32] VITALS: BP 124/86
== END 2023-10-16 17:32 | disposition home or self-care (01) ==
LOC: ED 15:01
DX: L03.116 Cellulitis of left lower limb (principal); F17.200 Nicotine dependence, unspecified, uncomplicated; Z88.5 Allergy status to narcotic agent
CPT/HCPCS: 99282

== ENCOUNTER 2023-10-23 00:29 | Emergency (ER) | payer OTHER ==
[~2023-10-23] VITALS: Ht 170.2 cm; Wt 60.4 kg
[~2023-10-23 00:29] MED LIST changes: +CEPHALEXIN500 M1 PO
--- OUTSIDE RECORDS SUMMARY | 2023-10-23 00:30 | XMS ---
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 08/16/2022 15:04 - Patient eloped with IV in place. - Patient eloped before treatment completed. - Patient with suicidal and/or homicidal ideations eloped. Details: Patient LWBS.
[2023-10-23] MEDS ORDERED: KETOROLAC TROMETHAMINE 60 MG/2 ML VIAL IM ONE (00:45)
[2023-10-23] MEDS ORDERED: GABAPENTIN100 MG PO (01:48)
[2023-10-23] MEDS ORDERED: GABAPENTIN 300 MG CAP PO ONE (02:00)
[2023-10-23 02:02] VITALS: BP 123/83
== END 2023-10-23 02:02 | disposition home or self-care (01) ==
LOC: ED 00:29
DX: R20.2 Paresthesia of skin (principal); F17.200 Nicotine dependence, unspecified, uncomplicated; Z88.5 Allergy status to narcotic agent; Z79.899 Other long term (current) drug therapy
CPT/HCPCS: 73030; 80053; 83735; 85025; 96372; 99284-25; A9270; J1885

== ENCOUNTER 2025-04-03 06:39 | Emergency (ER) | payer OTHER ==
[~2025-04-03] VITALS: Ht 170.2 cm; Wt 65.0 kg
[~2025-04-03 06:39] MED LIST changes: +GABAPENTIN100 MG PO
[2025-04-03 07:02] LABS: BASOPHILS 0.2 % (0.1-1.2); EOSINOPHILS 0 % (0.7-5.8); LYMPHOCYTES 15.3 % (19.3-51.7); MCH 31.6 PG (25.6-32.2); MCHC 34.5 g/dL (32.2-35.5); MCV 91.5 fL (79.4-94.8); MONOCYTES 6.5 % (4.7-12.5); NEUTROPHILS 77.5 % (34.0-71.1); RBC 4.02 M/uL (3.93-5.22)
[2025-04-03 07:14] LABS: ALT (SGPT) 25.0 U/L (14-59); AST (SGOT) 21.0 U/L (15-37); GLOMERULAR FILTRATION RATE,EST 105.0 mL/min (>60); PROTEIN, TOTAL 7.8 g/dL (6.4-8.2); UREA NITROGEN 11.0 mg/dL (7-18)
[2025-04-03 08:45] VITALS: BP 111/95
--- NOTE | 2025-04-03 11:21 | EKG ---
[facility] [address] [facility] [place] [address] Signed Normal sinus rhythm Anterior infarct , age undetermined Abnormal ECG When compared with ECG of 03-APR-2025 06:48, (Unconfirmed) No significant change was found Confirmed by Keith Molina DO ([id number]) on 04/03/2025 11:21:43 AM Electronically Signed By: KEITH MOLINA DO 04/03/251120 PATIENT NAME: LUBA SEBASTIAN [place] Electrocardiogram DATE OF : 89 PHYSICIAN: KEITH MOLINA DO REPORT #: [id number] REPORT IS CONFIDENTIAL AND NOT TO BE RELEASED WITHOUT AUTHORIZATION
--- NOTE | 2025-04-03 11:21 | EKG ---
[facility] [address] [facility] [place] [address] Signed Normal sinus rhythm Nonspecific ST abnormality Abnormal QRS-T angle, consider primary T wave abnormality Abnormal ECG When compared with ECG of 19-SEP-2022 12:46, Nonspecific T wave abnormality now evident in Inferior leads Confirmed by Keith Molina DO ([id number]) on 04/03/2025 11:21:38 AM Electronically Signed By: KEITH MOLINA DO 04/03/25 1121 PATIENT NAME: LUBA SEBASTIAN [place] Electrocardiogram DATE OF : [birth year] PHYSICIAN: KEITH MOLINA DO REPORT #: [id number] REPORT IS CONFIDENTIAL AND NOT TO BE RELEASED WITHOUT AUTHORIZATION
== END 2025-04-03 08:45 | disposition home or self-care (01) ==
LOC: ED 06:39
PROVIDERS: Internal Medicine
DX: R00.2 Palpitations (principal); F17.200 Nicotine dependence, unspecified, uncomplicated; Z88.5 Allergy status to narcotic agent
CPT/HCPCS: 36415; 71045; 80053; 83735; 84484; 85025; 93005; 93010; 96374; 99285-25; J2405